=== PATIENT | female | born 1935 | race Caucasian/White ===

== ENCOUNTER 2018-07-06 12:52 | Emergency (ER) | payer OTHER ==
[2018-07-06 13:40] LABS: Urine Blood 1+ (NEG); Urine Glucose NEGATIVE (NEG); Urine Protein 1+ (NEG); Urine Specific Gravity 1.005 (1.005-1.030)
[2018-07-06] MEDS ORDERED: ONDANSETRON 4 MG/2 ML VIAL ONE (13:43)
[2018-07-06] MEDS ORDERED: MORPHINE 4 MG/ML SYR ONE (13:43)
[2018-07-06] MEDS ORDERED: NA CHLORIDE 0.9% 1,000 ML ONE (13:43)
[2018-07-06 13:47] LABS: Urine Amorphous Sediment 1+ /HPF (NONE SEEN); Urine Bacteria LOADED /HPF (<20); Urine Culture Reflex Order REFLEXED; Urine Mucus 1+ /HPF (NONE SEEN); Urine RBC <5 /HPF (NONE SEEN)
[2018-07-06 13:48] LABS: Absolute Lymphocytes (CBC) 2.5 K/uL (0.7-4.9); Absolute Monocytes 0.8 K/uL (0.1-1.3); Absolute Neutrophil 5.4 K/uL (1.8-8.0); Basophils % 0.4 % (0-1.3); Eosinophils % 1.4 % (0-4.4); Hematocrit 33.9 % (36.0-45.0); Lymphocytes % 28.2 % (15.3-44.8); MCH 32.7 pg (27.0-35.0); MCV 94.7 fL (80-100); MPV 7.4 fL (7.6-11.3); Monocytes % 8.6 % (3.3-12.3); RBC Red Blood Cell Count 3.58 M/uL (3.86-4.86)
[2018-07-06 13:55] LABS: Protime INR 1.01
[2018-07-06 14:01] LABS: ALT/SGPT 28 U/L (12-78); AST/SGOT 19 U/L (15-37); Albumin 3.5 g/dL (3.4-5.0); Alkaline Phosphatase 72 U/L (45-117); BUN Blood Urea Nitrogen 20 mg/dL (7-18); Bicarbonate 29 mmol/L (21-32); Bilirubin Direct 0.2 mg/dL (0-0.2); Bilirubin Total 0.6 mg/dL (0.2-1.0); Glucose Level 88 mg/dL (74-106); Magnesium 1.9 mg/dL (1.8-2.4); NT PRO-BNP 279 pg/mL (<450); Potassium 3.9 mmol/L (3.5-5.1); Protein, Total 7.3 g/dL (6.4-8.2); Sodium Level 137 mmol/L (136-145); Troponin (Emerg Dept Use Only) < 0.02 ng/mL (0.0-0.045)
[2018-07-06] MEDS ORDERED: LORazepam 2 MG/ML VIAL ONE (14:12)
--- NOTE | 2018-07-06 14:16 | RAD REPORT ---
EXAM DESCRIPTION: RAD - Ankle Left 3 View - 07/06/2018 1:53 pm CLINICAL HISTORY: Persistent ankle pain following injury COMPARISON: None. FINDINGS: No fracture, dislocation or periosteal reaction. No joint effusion seen. No joint space na rrowing. Small plantar and moderate Achilles spurs are present. Mild soft tissue swelling present. No foreign body. IMPRESSION: Mild soft tissue swelling without acute bone finding. Plantar and Achilles tendon spurs are present.
--- NOTE | 2018-07-06 14:17 | RAD REPORT ---
EXAM DESCRIPTION: RAD - Chest Single View - 07/06/2018 1:53 pm CLINICAL HISTORY: Chest pain COMPARISON: October 2010 TECHNIQUE: AP portable chest image was obtained 1346 hours . FINDINGS: Lung volumes are low compared to the prior study. Left pericardial fat is prominent. No pe ripheral mass or consolidation. Lung markings are within normal limits when adjusting for the more sh allow inspiratory effort. Sternotomy wires are in place. No failure or volume overload seen. Heart and vasculature are normal. No measurable pleural effusion and no pneumothorax. No acute bony abnormality seen. No acute aortic findings suspected. IMPRESSION: No acute cardiopulmonary process. No significant change from comparison.
--- NOTE | 2018-07-06 14:42 | RAD REPORT ---
EXAM DESCRIPTION: CT - Chest For Pe Angio - 07/06/2018 2:30 pm CLINICAL HISTORY: Chest pain, arm pain, history of bypass COMPARISON: Chest films same date TECHNIQUE: Dynamically enhanced 3 mm thick images of the chest were obtained during administration o f approximately 150mL Isovue 370 IV contrast. Coronal and oblique MIP reconstruction images were gene rated and reviewed. Exam utilizes a protocol to evaluate the pulmonary arterial tree. All CT scans are performed using dose optimization technique as appropriate and may include automated exposure control or mA/KV adjustment according to patient size. FINDINGS: No pulmonary emboli are identified. The aorta as imaged shows no acute or suspicious finding. No pericardial thickening or effusion. No consolidation, mass or focal lung parenchymal process. Lung base interstitial markings are mildly prominent. No pleural effusion or pleural thickening. No mediastinal or hilar suspicious masses. No chest wall masses or abnormal axillary lymphadenopathy. IMPRESSION: No pulmonary emboli identified. No focal lung parenchymal process. Mild prominence of the mid and lower lung field interstitial denice ngs could be minimal interstitial edema or infiltrate.
--- NOTE | 2018-07-06 15:33 | ER ---
Nurse's Notes [facility] Name: Rosalie Obrien Age: 83 yrs Sex: Female : 1935 Arrival Date: 07/06/2018 Time: 12:55 Bed 17 Private MD: Khris Garcia V Diagnosis: Chest pain, unspecified;CHEST WALL PAIN;MUSCULOSKELETAL PAIN;ANXIETY;LEFT ANKLE SPRAIN;Urinary tract infection, site not specified Presentation: 07/06 13:15 Presenting complaint: Patient states: "I hurt my left ankle about a week ago". Pt aa5 states "also my left arm started aching last night and my back hurts". Pt denies SOB, denies cough. Transition of care: patient was not received from another setting of care. Onset of symptoms was June 2018. Risk Assessment: Do you want to hurt yourself or someone else? Patient reports no desire to harm self or others. Initial Sepsis Screen: Does the patient meet any 2 criteria? No. Patient's initial sepsis screen is negative. Does the patient have a suspected source of infection? No. Patient's initial sepsis screen is negative. Care prior to arrival: None. 13:15 Method Of Arrival: Ambulatory aa5 13:15 Acuity: RU 3 aa5 Historical: - Allergies: 13:15 No Known Allergies; aa5 - PMHx: 13:15 Hypertension; Hyperlipidemia; aa5 - PSHx: 13:15 Triple Bypass; Appendectomy; Lumpectomy; aa5 - Immunization history:: Pneumococcal vaccine is up to date, Flu vaccine is up to date. - Social history:: Smoking status: Patient/guardian denies using tobacco. - Ebola Screening: : No symptoms or risks identified at this time. - Family history:: not pertinent. - Hospitalizations: : No recent hospitalization is reported. Screenin:39 Abuse screen: Denies threats or abuse. Denies injuries from another. Nutritional aj screening: No deficits noted. Tuberculosis screening: No symptoms or risk factors identified. Fall Risk None identified. Assessment: 13:38 General: Appears in no apparent distress. uncomfortable, Behavior is calm, cooperative, aj appropriate for age. Pain: Complains of pain in back, chest and left foot Pain radiates to back Pain began 2-3 days ago. Neuro: Level of Consciousness is awake, alert, obeys commands, Oriented to person, place, time, situation, Appropriate for age. Cardiovascular: Capillary refill < 3 seconds Patient's skin is warm and dry. Respiratory: Reports shortness of breath at rest Airway is patent Respiratory effort is even, unlabored, Respiratory pattern is symmetrical. Derm: Skin is intact, is healthy with good turgor, Skin is pink, warm \\T\\ dry. normal, Bruising that is dark purple, on left lateral ankle and anterior aspect of left ankle. Musculoskeletal: Swelling present in left lateral ankle and anterior aspect of left ankle. 14:26 Reassessment: PT TO CT WITH CENTRIFUGAL CHILLER TECHNICIAN. bp 15:12 Reassessment: Patient appears in no apparent distress at this time. No changes from aj previously documented assessment. Patient and/or family updated on plan of care and expected duration. Pain level reassessed. Patient is alert, oriented x 3, equal unlabored respirations, skin warm/dry/pink. 15:25 Reassessment: Patient appears in no apparent distress at this time. No changes from aj previously documented assessment. Patient and/or family updated on plan of care and expected duration. Pain level reassessed. Patient is alert, oriented x 3, equal unlabored respirations, skin warm/dry/pink. Patient contacted family member to pick her up from ER Patient denies pain at this time. Patient states feeling better. Patient states symptoms have improved. 15:51 Reassessment: Patient's family member arrived to take patient home. aj Vital Signs: 13:16 BP 178 / 83; Pulse 79; Resp 16 S; Temp 98.1(O); Pulse Ox 99% on R/A; Weight 74.84 kg aa5 (R); Height 5 ft. 7 in. (170.18 cm) (R); Pain 7/10; 14:00 BP 218 / 75; Pulse 74; Resp 20; Pulse Ox 97% on R/A; aj 14:16 BP 136 / 96; Pulse 76; Resp 20; Pulse Ox 97% on R/A; aj 15:12 BP 163 / 70; Pulse 75; Resp 14; Pulse Ox 95% on R/A; aj 15:25 BP 161 / 62; Pulse 76; Resp 20; Pulse Ox 98% on R/A; aj 15:51 BP 153 / 69; Pulse 78; Resp 16; Pulse Ox 99% on R/A; aj 13:16 Body Mass Index 25.84 (74.84 kg, 170.18 cm) aa5 ED Course: 12:55 Patient arrived in ED. rg4 12:55 Khris Garcia MD is Private Physician. rg4 13:15 Arm band placed on. aa5 13:16 Triage completed. aa5 13:17 [facility] kav 13:17 Rogelio Hung MD is Attending Physician. kav 13:32 Geovanna Gao, CHANELL is Primary Nurse. aj 13:32 Inserted saline lock: 18 gauge in left antecubital area, using aseptic technique. Blood aj collected. 13:39 Patient has correct armband on for positive identification. traffic monitor specialist on. Pulse aj ox on. NIBP on. 13:40 EKG done, by ED staff. vh 13:53 X-ray completed. Portable x-ray completed in exam room. Patient tolerated procedure ls3 well. 13:53 XRAY Chest (1 view) In Process Unspecified. EDMS 13:53 Ankle Left 3 View XRAY In Process Unspecified. EDMS 14:25 CT completed. Patient tolerated procedure well. Patient moved to CT via wheelchair. sj Patient moved back from CT. 14:30 CT Chest For PE Angio: r/o PE In Process Unspecified. EDMS 15:25 No provider procedures requiring assistance completed. Patient maintains SpO2 aj saturation greater than 95% on room air. 15:28 Khris Garcia MD is Referral Physician. kav 15:29 Darrick Posada MD is Referral Physician. kav 15:51 IV discontinued, intact, bleeding controlled, No redness/swelling at site. Pressure aj dressing applied. Administered Medications: 13:42 Drug: Zofran 2 mg Route: IVP; Site: left antecubital; aj 15:17 Follow up: Response: No adverse reaction aj 13:43 Drug: NS 0.9% 1000 ml Route: IV; Rate: 100 ml/hr; Site: left antecubital; aj 15:53 Follow up: Response: No adverse reaction; IV Status: Order to discontinue infusion; IV aj Intake: 400ml 13:43 Drug: morphine 2 mg Route: IVP; Site: left antecubital; aj 15:17 Follow up: Response: Pain is decreased aj 14:08 Drug: Ativan 0.5 mg Route: IVP; Site: left antecubital; aj 15:16 Follow up: Response: No adverse reaction; Anxiety decreased aj 15:34 Drug: hydrALAZINE 5 mg Route: IV; Rate: calculated rate; Site: left antecubital; aj 15:52 Follow up: Response: Blood pressure is lowered; IV Status: Completed infusion; IV aj Intake: 0.25ml Intake: 15:52 IV: 0ml; Total: 0ml. aj 15:53 IV: 400ml; Total: 400ml. meliton Outcome: 15:32 Discharge ordered by MD. shannon 15:51 Discharged to home ambulatory, with family. aj 15:51 Condition: good 15:51 Discharge instructions given to patient, family, Instructed on discharge instructions, follow up and referral plans. medication usage, Demonstrated understanding of instructions, follow-up care, medications, Prescriptions given X 2. 15:54 Patient left the ED. aj Addendum: 07/09/2018 16:12 Addendum: Culture Results: Positive urine culture. Phone call Prescription called-in to s s pharmacy of choice. spoke with patient who verbalizes understanding importance of stopping Bactrim and begin taking Macrobid. Medication called in to [facility] pharmacy. Signatures: Dispatcher [employer] Geovanna Moss RN RN aj Vern, Katherine, POWDER EXPERT POWDER EXPERT Lizette Conway Audri RN RN aa5 Leatha Dunbar RN RN Laurel Montanez Rubi rg4 Gaudencio Rahman RN RN bp Siler, Lynzie ls3 Corrections: (The following items were deleted from the chart) 07/06 14:16 14:08 BP 218 / 75; Pulse 74bpm; Resp 20bpm; Pulse Ox 97% RA; aj aj
--- NOTE | 2018-07-06 15:33 | EDPHYS ---
Physician Documentation [facility] Name: Rosalie Obrien Age: 83 yrs Sex: Female : 1935 Arrival Date: 07/06/2018 Time: 12:55 Bed 17 Private MD: Khris Garcia V ED Physician Rogelio Hung HPI: 07/06 13:18 This 83 yrs old Female presents to ER via Ambulatory with complaints of Chest kav Pain, Back Pain, Foot Pain. 14:05 The patient or guardian reports chest pain that is located primarily in the anterior kav aspect of left upper chest and left breast. Onset: acutely, last night. The pain does not radiate. Associated signs and symptoms: Pertinent positives: nausea, shortness of breath, Pertinent negatives: dizziness, headache, lower extremity swelling, palpitations, recent travel. The chest pain is described as clutching. Duration: The patient or guardian reports a single episode, that is still ongoing, but improving. Modifying factors: The symptoms are alleviated by remaining still, the symptoms are aggravated by movement. Severity of pain: At its worst the pain was severe last night. The patient has not experienced similar symptoms in the past. The patient has not recently seen a physician. patient presents with chief c/o chest pain. she is clutching her chest as she is talking. she reports that the chest pain began last night but that she did not seek out care at that time. reports radiation to let shoulder blade. also c/o sob and chest pain on deep inspiration. she reports that she has been under a lot of emotional stress in the past 3 months: placed daughter in snf, son dx: cancer and loss of significant other. she also reports that she was working out in the yard yesterday using [employer] and that "...might be contributing to the chest pain". Patient is very anxious and is crying during this examination.. Historical: - Allergies: 13:15 No Known Allergies; aa5 - PMHx: 13:15 Hypertension; Hyperlipidemia; aa5 - PSHx: 13:15 Triple Bypass; Appendectomy; Lumpectomy; aa5 - Immunization history:: Pneumococcal vaccine is up to date, Flu vaccine is up to date. - Social history:: Smoking status: Patient/guardian denies using tobacco. - Ebola Screening: : No symptoms or risks identified at this time. - Family history:: not pertinent. - Hospitalizations: : No recent hospitalization is reported. ROS: 14:11 Constitutional: Negative for fever, chills, and weight loss, Eyes: Negative for injury, kav pain, redness, and discharge, ENT: Negative for injury, pain, and discharge, Neck: Negative for injury, pain, and swelling, Respiratory: Negative for shortness of breath, cough, wheezing, and pleuritic chest pain, Abdomen/GI: Negative for abdominal pain, nausea, vomiting, diarrhea, and constipation, Back: Negative for injury and pain, : Negative for injury, bleeding, discharge, and swelling, MS/Extremity: Negative for injury and deformity, Skin: Negative for injury, rash, and discoloration, Psych: Negative for depression, anxiety, suicide ideation, homicidal ideation, and hallucinations, Allergy/Immunology: Negative for hives, rash, and allergies, Endocrine: Negative for neck swelling, polydipsia, polyuria, polyphagia, and marked weight changes, Hematologic/Lymphatic: Negative for swollen nodes, abnormal bleeding, and unusual bruising. 14:11 Cardiovascular: Positive for chest pain, with movement, of the chest and left breast and anterior aspect of left upper chest. 14:11 Psych: Positive for 14:11 Psych: Positive for anxiety. Exam: 14:11 Constitutional: This is a well developed, well nourished patient who is awake, alert, kav and in no acute distress. Head/Face: Normocephalic, atraumatic. Eyes: Pupils equal round and reactive to light, extra-ocular motions intact. Lids and lashes normal. Conjunctiva and sclera are non-icteric and not injected. Cornea within normal limits. Periorbital areas with no swelling, redness, or edema. ENT: Nares patent. No nasal discharge, no septal abnormalities noted. Tympanic membranes are normal and external auditory canals are clear. Oropharynx with no redness, swelling, or masses, exudates, or evidence of obstruction, uvula midline. Mucous membranes moist. Neck: Trachea midline, no thyromegaly or masses palpated, and no cervical lymphadenopathy. Supple, full range of motion without nuchal rigidity, or vertebral point tenderness. No Meningismus. Chest/axilla: Normal chest wall appearance and motion. Nontender with no deformity. No lesions are appreciated. Respiratory: Lungs have equal breath sounds bilaterally, clear to auscultation and percussion. No rales, rhonchi or wheezes noted. No increased work of breathing, no retractions or nasal flaring. Abdomen/GI: Soft, non-tender, with normal bowel sounds. No distension or tympany. No guarding or rebound. No evidence of tenderness throughout. Back: No spinal tenderness. No costovertebral tenderness. Full range of motion. Skin: Warm, dry with normal turgor. Normal color with no rashes, no lesions, and no evidence of cellulitis. MS/ Extremity: Pulses equal, no cyanosis. Neurovascular intact. Full, normal range of motion. Neuro: Awake and alert, GCS 15, oriented to person, place, time, and situation. Cranial nerves II-XII grossly intact. Motor strength 5/5 in all extremities. Sensory grossly intact. Cerebellar exam normal. Normal gait. 14:11 Cardiovascular: Rate: normal, actual rate is 75 bpm, Rhythm: regular, sinus rhythm kav with 1st degree av block, Heart sounds: normal, normal S1and S2, Edema: is not appreciated, JVD: is not appreciated. 14:11 ECG was reviewed by the Attending Physician. nsr with 1st degree av block Vital Signs: 13:16 BP 178 / 83; Pulse 79; Resp 16 S; Temp 98.1(O); Pulse Ox 99% on R/A; Weight 74.84 kg aa5 (R); Height 5 ft. 7 in. (170.18 cm) (R); Pain 7/10; 14:00 BP 218 / 75; Pulse 74; Resp 20; Pulse Ox 97% on R/A; aj 14:16 BP 136 / 96; Pulse 76; Resp 20; Pulse Ox 97% on R/A; aj 15:12 BP 163 / 70; Pulse 75; Resp 14; Pulse Ox 95% on R/A; aj 15:25 BP 161 / 62; Pulse 76; Resp 20; Pulse Ox 98% on R/A; aj 15:51 BP 153 / 69; Pulse 78; Resp 16; Pulse Ox 99% on R/A; aj 13:16 Body Mass Index 25.84 (74.84 kg, 170.18 cm) aa5 MDM: 13:17 Medical screening is not applicable. kav 14:11 Data reviewed: vital signs, nurses notes. [facility] 15:19 Differential diagnosis: acute myocardial infarction, chest wall pain, pulmonary kav embolus, unstable angina. Data reviewed: lab test result(s), radiologic studies, CT scan, plain films. ED course: denies chest pain, all labs reviewed. ED course: patient is calling someone to give her a ride to home. 15:43 ED course: discussed discharge with attending/dr. hung who is in agreement with kav discharge to home and f/u with both pcp and cardiology. 07/06 13:24 Order name: Basic Metabolic Panel; Complete Time: 15:11 [facility] 07/06 13:24 Order name: CBC with Diff; Complete Time: 15: [facility] 07/06 13:24 Order name: LFT's; Complete Time: 15: [facility] 07/06 13:24 Order name: Magnesium; Complete Time: 15: [facility] 07/06 13:24 Order name: NT PRO-BNP; Complete Time: 15: [facility] 07/06 13:24 Order name: PT-INR; Complete Time: 15:11 [facility] 07/06 13:24 Order name: Troponin (emerg Dept Use Only); Complete Time: 15:11 [facility] 07/06 13:24 Order name: XRAY Chest (1 view); Complete Time: 15:11 [facility] 07/06 13:24 Order name: Urine Microscopic Only; Complete Time: 15:11 07/06 13:26 Order name: Urine Dipstick--Ancillary (enter results); Complete Time: 15:11 07/06 13:26 Order name: Ankle Left 3 View XRAY; Complete Time: 15:11 [facility] 07/06 13:48 Order name: Urine Culture [facility] 07/06 13:59 Order name: DD; Complete Time: 15:45 [facility] 07/06 15:45 Interpretation: Abnormal. [facility] 07/06 14:04 Order name: CT Chest For PE Angio: r/o PE; Complete Time: 15:11 [facility] 07/06 13:24 Order name: EKG; Complete Time: 13:24 [facility] 07/06 13:24 Order name: Cardiac monitoring; Complete Time: 14:26 [facility] 07/06 13:24 Order name: EKG - Nurse/Tech; Complete Time: 14:26 [facility] 07/06 13:24 Order name: IV Saline Lock; Complete Time: 14:26 kav 07/06 13:24 Order name: Labs collected and sent; Complete Time: 14: kav 07/06 13:24 Order name: O2 Per Protocol; Complete Time: 14: kav 07/06 13:24 Order name: O2 Sat Monitoring; Complete Time: 14: kav Administered Medications: 13:42 Drug: Zofran 2 mg Route: IVP; Site: left antecubital; aj 15:17 Follow up: Response: No adverse reaction aj 13:43 Drug: NS 0.9% 1000 ml Route: IV; Rate: 100 ml/hr; Site: left antecubital; aj 15:53 Follow up: Response: No adverse reaction; IV Status: Order to discontinue infusion; IV aj Intake: 400ml 13:43 Drug: morphine 2 mg Route: IVP; Site: left antecubital; aj 15:17 Follow up: Response: Pain is decreased aj 14:08 Drug: Ativan 0.5 mg Route: IVP; Site: left antecubital; aj 15:16 Follow up: Response: No adverse reaction; Anxiety decreased aj 15:34 Drug: hydrALAZINE 5 mg Route: IV; Rate: calculated rate; Site: left antecubital; aj 15:52 Follow up: Response: Blood pressure is lowered; IV Status: Completed infusion; IV aj Intake: 0.25ml Disposition: 18:50 Co-signature as Attending Physician, Rogelio Hung MD. rn Disposition: 07/06/18 15:32 Discharged to Home. Impression: Chest pain, unspecified, CHEST WALL PAIN, MUSCULOSKELETAL PAIN, ANXIETY, LEFT ANKLE SPRAIN, Urinary tract infection, site not specified. - Condition is Stable. - Discharge Instructions: Nonspecific Chest Pain, Chest Wall Pain, Ankle Sprain, [id number], Generalized Anxiety Disorder. - Prescriptions for Ibuprofen 600 mg Oral Tablet - take 1 tablet by ORAL route every 6 hours As needed take with food; 30 tablet. Bactrim DS 800- 160 mg Oral Tablet - take 1 tablet by ORAL route every 12 hours for 7 days; 14 tablet. - Medication Reconciliation Form, Thank You Letter, Antibiotic Education form. - Follow up: Khris Garcia MD; When: 2 - 3 days; Reason: Recheck today's complaints, Continuance of care, Re-evaluation by your physician. Follow up: Darrick Posada MD; When: 2 - 3 days; Reason: Recheck today's complaints, Continuance of care, Re-evaluation by your physician. - Problem is new. - Symptoms have improved. Signatures: Dispatcher [employer] EDGeovanna Hemphill RN RN Elina Ziegler, FORESTRY SCIENTIST FORESTRY SCIENTIST Rogelio Sevilla MD MD rn Calderon, Audri, RN RN aa5 Corrections: (The following items were deleted from the chart) 15:44 15:32 07/06/2018 15:32 Discharged to Home. Impression: Chest pain, unspecified; CHEST kav WALL PAIN; MUSCULOSKELETAL PAIN; ANXIETY; LEFT ANKLE SPRAIN. Condition is Stable. Forms are Medication Reconciliation Form, Thank You Letter, Antibiotic Education, Prescription Opioid Use. Follow up: Khris Garcia; When: 2 - 3 days; Reason: Recheck today's complaints, Continuance of care, Re-evaluation by your physician. Follow up: Darrick Posada; When: 2 - 3 days; Reason: Recheck today's complaints, Continuance of care, Re-evaluation by your physician. Problem is new. Symptoms have improved. [facility] 15:54 15:33 Mike wrap-joint ordered. [facility] 15:54 15:44 07/06/2018 15:32 Discharged to Home. Impression: Chest pain, unspecified; CHEST aj WALL PAIN; MUSCULOSKELETAL PAIN; ANXIETY; LEFT ANKLE SPRAIN; Urinary tract infection, site not specified. Condition is Stable. Discharge Instructions: Nonspecific Chest Pain, Chest Wall Pain, Ankle Sprain, [id number], Generalized Anxiety Disorder. Prescriptions for Ibuprofen 600 mg Oral Tablet - take 1 tablet by ORAL route every 6 hours As needed take with food; 30 tablet. and Forms are Medication Reconciliation Form, Thank You Letter, Antibiotic Education, Prescription Opioid Use. Follow up: Khris Garcia; When: 2 - 3 days; Reason: Recheck today's complaints, Continuance of care, Re-evaluation by your physician. Follow up: Darrick Posada; When: 2 - 3 days; Reason: Recheck today's complaints, Continuance of care, Re-evaluation by your physician. Problem is new. Symptoms have improved. ka
[2018-07-06] MEDS ORDERED: HYDRALAZINE HCL 20 MG/ML VIAL ONE (15:39)
--- NOTE | 2018-07-06 22:07 | EKG ---
Test Date: 2018-07-06 Test Time: 13:28:44 Mult Au Matic Operator: JES MEASUREMENT RESULTS: Intervals: Rate: 75 MA: 216 QRSD: 86 QT: 400 QTc: 446 [place]: P: 50 MA: 216 QRS: 37 T: 40 INTERPRETIVE STATEMENTS: Sinus rhythm with 1st degree AV block Otherwise normal ECG Compared to ECG 02/07/2007 10:17:13 First degree AV block now present Electronically Signed On 07-06-18 22:06:27 CDT by Artur Deleon
== END 2018-07-06 15:54 | disposition home or self-care (01) ==
LOC: ER 12:52
DX: R07.89 Other chest pain (principal); F41.9 Anxiety disorder, unspecified; M79.18 Myalgia, other site; N39.0 Urinary tract infection, site not specified; S93.402A Sprain of unspecified ligament of left ankle, initial encounter; I10 Essential (primary) hypertension
CPT/HCPCS: 36415; 71045; 71275; 73610; 80048; 80076; 83735; 83880; 84484; 85025; 85379; 85610; 87077; 87086; 87088; 87186; 93005; 96361; 96365; 96375; 99285; J0360; J2405; J7030; Q9967; 81003; 81015

== ENCOUNTER 2018-07-25 11:23 | Observation (INO) | payer OTHER ==
--- NOTE | 2018-07-25 12:56 | RAD REPORT ---
EXAM DESCRIPTION: Kymber[place] Single View07/25/2018 12:47 pm CLINICAL HISTORY: Chest pain COMPARISON: July 06, 2018 FINDINGS: The lungs appear clear of acute infiltrate. The heart is normal size. Postsurgical changes involve the chest. IMPRESSION: No acute abnormalities displayed
[2018-07-25 13:34] LABS: Absolute Lymphocytes (CBC) 2.4 K/uL (0.7-4.9); Absolute Monocytes 0.7 K/uL (0.1-1.3); Absolute Neutrophil 8.1 K/uL (1.8-8.0); Basophils % 0.5 % (0-1.3); Eosinophils % 1.3 % (0-4.4); Hematocrit 35.9 % (36.0-45.0); MCH 31.6 pg (27.0-35.0); MCV 92.7 fL (80-100); MPV 6.9 fL (7.6-11.3); Monocytes % 6.4 % (3.3-12.3); Protime INR 1.18; RBC Red Blood Cell Count 3.87 M/uL (3.86-4.86)
[2018-07-25] MEDS ORDERED: MORPHINE 4 MG/ML SYR ONE ×2 (13:42→18:24)
[2018-07-25] MEDS ORDERED: ONDANSETRON 4 MG/2 ML VIAL ONE ×3 (13:43→18:44)
[2018-07-25] MEDS ORDERED: NA CHLORIDE 0.9% 1,000 ML ONE (13:43)
[2018-07-25 14:23] LABS: Albumin 3.5 g/dL (3.4-5.0); Bilirubin Direct 0.2 mg/dL (0-0.2); Magnesium 1.9 mg/dL (1.8-2.4); Potassium 3.9 mmol/L (3.5-5.1); Protein, Total 7.7 g/dL (6.4-8.2); Troponin (Emerg Dept Use Only) 0.04 ng/mL (0.0-0.045)
--- NOTE | 2018-07-25 15:19 | RAD REPORT ---
EXAM DESCRIPTION: CT - Angio Aorta For Dissection - 07/25/2018 2:54 pm CLINICAL HISTORY: . Chest and abdominal pain for 1 week COMPARISON: July 06, 2018 TECHNIQUE: Computed tomography angiography of the chest, abdomen pelvis were obtained. 100 cc Isovue 370 was administered intravenously. Coronal and sagittal reconstruction were performed. MIP 3D reconstruction was performed All CT scans are performed using dose optimization technique as appropriate and may include automated exposure control or mA/KV adjustment according to patient size. FINDINGS: An aortic dissection is not seen. An aortic aneurysm is not displayed. A high-grade stenosis involves the proximal celiac artery. A a moderate grade stenosis involves the p roximal SMA. MCKENZIE is patent A lung consolidation is not present. A pericardial effusion is not seen. A pleural effusion is not n oted. The liver,pancreas adrenals kidneys demonstrate no significant abnormality. A 12 millimeter hypervascular splenic lesion. There no evidence diverticulitis. No ascites is noted. IMPRESSION: Negative for an aortic dissection. 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 Followup ultrasound 3 months recommended to assess stability
[2018-07-25 15:46] LABS: Urine Blood TRACE (NEG); Urine Glucose NEGATIVE (NEG); Urine Protein NEGATIVE (NEG); Urine Specific Gravity 1.015 (1.005-1.030)
--- NOTE | 2018-07-25 15:46 | ER ---
Nurse's Notes [facility] Name: Rosalie Obrien Age: 83 yrs Sex: Female : 1935 Arrival Date: 07/25/2018 Time: 11:27 Bed 27 Private MD: Khris Garcia V Diagnosis: Chest pain, unspecified;Essential (primary) hypertension;Chondrocostal junction syndrome [Tietze];Urinary tract infection, site not specified Presentation: 07/25 11:58 Presenting complaint: Patient states: Chest arm and neck pain began 1 week ago "I can't jl7 lift my head or my arms, it just hurts too bad." Denies trauma. Transition of care: patient was not received from another setting of care. Onset of symptoms was July 18, 2018. Risk Assessment: Do you want to hurt yourself or someone else? Patient reports no desire to harm self or others. Initial Sepsis Screen: Does the patient meet any 2 criteria? No. Patient's initial sepsis screen is negative. Does the patient have a suspected source of infection? No. Patient's initial sepsis screen is negative. Care prior to arrival: None. 11:58 Method Of Arrival: Ambulatory 7 11:58 Acuity: RU 3 jl7 Historical: - Allergies: 12:00 No Known Allergies; jl7 - PMHx: 12:00 Hyperlipidemia; Hypertension; jl7 - Immunization history:: Adult Immunizations up to date. - Social history:: Smoking status: Patient/guardian denies using tobacco. - Ebola Screening: : No symptoms or risks identified at this time. - Family history:: not pertinent. Screenin:29 Abuse screen: Denies threats or abuse. Denies injuries from another. Nutritional aj screening: No deficits noted. Tuberculosis screening: No symptoms or risk factors identified. Fall Risk None identified. Assessment: 13:28 General: Appears in no apparent distress. uncomfortable, Behavior is calm, cooperative, aj appropriate for age. Pain: Complains of pain in chest, back of neck and posterior chest and left lateral anterior chest and left lateral posterior chest and anterior aspect of left upper chest and left clavicle. Neuro: Level of Consciousness is awake, alert, obeys commands, Oriented to person, place, time, situation, Appropriate for age. Cardiovascular: Reports chest pain, Capillary refill < 3 seconds in bilateral fingers Patient's skin is warm and dry. Respiratory: Airway is patent Respiratory effort is even, unlabored, Respiratory pattern is regular, symmetrical. Derm: Skin is intact, is healthy with good turgor, Skin is pink, warm \\T\\ dry. normal. Musculoskeletal: Reports pain in chest, back of neck and posterior chest. 18:22 Reassessment: Patient appears in no apparent distress at this time. No changes from aj previously documented assessment. Patient and/or family updated on plan of care and expected duration. Pain level reassessed. Patient is alert, oriented x 3, equal unlabored respirations, skin warm/dry/pink. Administered Morphine 4 mg IVP, per floor orders. Unable to take patient to assigned bed until "after shift change", per . 20:03 Reassessment: Patient appears in no apparent distress at this time. No changes from aj previously documented assessment. Patient and/or family updated on plan of care and expected duration. Pain level reassessed. Patient is alert, oriented x 3, equal unlabored respirations, skin warm/dry/pink. Patient resting comfortably in bed Patient states feeling better. Patient states symptoms have improved. Vital Signs: 12:00 BP 143 / 100; Pulse 82; Resp 16 S; Temp 98.9(O); Pulse Ox 100% on R/A; Weight 70.31 kg jl7 (M); Height 5 ft. 7 in. (170.18 cm) (R); Pain 10/10; 13:28 BP 192 / 85; Pulse 78; Resp 16; Pulse Ox 99% on R/A; aj 15:37 BP 187 / 87; Pulse 76; Resp 19; Pulse Ox 100% on R/A; aj 16:40 BP 186 / 63; Pulse 63; Resp 19; Pulse Ox 99% on R/A; aj 17:08 BP 164 / 76; Pulse 68; Resp 20; Pulse Ox 99% on R/A; aj 17:58 BP 165 / 72; Pulse 64; Resp 19; Pulse Ox 98% on R/A; aj 19:20 BP 139 / 61; Pulse 61; Resp 16; Pulse Ox 97% on R/A; aj 12:00 Body Mass Index 24.28 (70.31 kg, 170.18 cm) 7 ED Course: 11:27 Patient arrived in ED. mr 11:27 Khris Garcia MD is Private Physician. mr 12:00 Triage completed. jl7 12:00 Arm band placed on right wrist. jl7 12:03 Kiko Wells MD is Attending Physician. dexter 12:04 Geovanna Gao RN is Primary Nurse. aj 12:44 X-ray completed. Portable x-ray completed in exam room. Patient tolerated procedure ls3 well. 12:45 EKG done, by scale technician. reviewed by Kiko Wells MD. sm3 13:09 Radiology exam delayed due to lab results not completed at this time. (BUN/Creatinine). kw1 13:29 Patient has correct armband on for positive identification. Placed in gown. Bed in low aj position. Side rails up X 1. Adult w/ patient. court recording monitor on. Pulse ox on. NIBP on. 13:29 Inserted saline lock: 20 gauge in left antecubital area, using aseptic technique. Blood aj collected. 15:37 No provider procedures requiring assistance completed. aj 15:42 Khris Garcia MD is Hospitalizing Provider. dexter 19:39 Report given to Sirisha LUA. aj 19:39 Patient admitted, IV remains in place. intact. aj Administered Medications: 13:37 Drug: Zofran 4 mg Route: IVP; Site: left antecubital; aj 14:08 Follow up: Response: No adverse reaction aj 13:38 Drug: NS 0.9% 1000 ml Route: IV; Rate: 125 ml/hr; Site: right antecubital; aj 19:43 Follow up: Response: No adverse reaction; IV Status: Completed infusion; IV Intake: aj 250ml 13:38 Drug: morphine 4 mg Route: IVP; Site: left antecubital; aj 14:08 Follow up: Response: Pain is decreased aj 14:40 Drug: Zofran 4 mg Route: IVP; Site: left antecubital; aj 15:38 Follow up: Response: Nausea is decreased aj 16:38 Drug: Lopressor 2.5 mg Route: IVP; Site: left antecubital; aj 19:41 Follow up: Response: Blood pressure is lowered aj 16:38 Drug: Lopressor 25 mg Route: PO; aj 19:41 Follow up: Response: Blood pressure is lowered aj 16:38 Drug: Rocephin - (cefTRIAXone) 1 grams Route: IVPB; Infused Over: 30 mins; Site: left aj antecubital; 19:41 Follow up: Response: No adverse reaction; IV Status: Completed infusion; IV Intake: 10mlaj 16:39 Drug: Lovenox 40 mg Route: Sub-Q; Site: right lower abdomen; aj 19:42 Follow up: Response: No adverse reaction aj 16:39 Drug: Aspirin 162 mg Route: PO; aj 19:42 Follow up: Response: No adverse reaction aj 16:39 Drug: Pepcid 20 mg Route: IVP; Site: left antecubital; aj 19:42 Follow up: Response: Blood pressure is lowered aj 18:18 Not Given (Physician Discretion): Lopressor 2.5 mg IVP once; Hold for SBP <100 or HR aj <60. Intake: 19:41 IV: 10ml; Total: 10ml. aj 19:43 IV: 250ml; Total: 260ml. aj Outcome: 15:45 Decision to Hospitalize by Provider. dexter 20:04 Admitted to Med/surg accompanied by nurse, via wheelchair, room 409, with chart, Report aj called to Sirisha LUA 20:04 Condition: good 20:04 Instructed on the need for admit. 20:05 Patient left the ED. meliton Signatures: Geovanna Gao, RN RN Kiko Greene MD MD cha Rivera, Mohsen Pringle RN RN [email or web address] Ijeoma Neal1 Ivy Potts3 Vladimir Abbott3
--- NOTE | 2018-07-25 15:46 | EDPHYS ---
Physician Documentation [facility] Name: Rosalie Obrien Age: 83 yrs Sex: Female : 1935 Arrival Date: 07/25/2018 Time: 11:27 Bed 27 Private MD: Khris Garcia V ED Physician Kiko Wells HPI: 07/25 12:54 This 83 yrs old Female presents to ER via Ambulatory with complaints of Pain dexter All Over. 12:54 The patient or guardian reports chest pain that is located primarily in the substernal dexter area, anterior chest wall, left. Onset: 2 week(s) ago. no fever. The pain does not radiate. Onset: The symptoms/episode began/occurred 2 week(s) ago. Associated signs and symptoms: The patient has no apparent associated signs or symptoms. Duration: The patient or guardian reports multiple episodes, that are intermittent. Severity of pain: At its worst the pain was severe in the emergency department the pain is actually worse moderately. Historical: - Allergies: 12:00 No Known Allergies; jl7 - PMHx: 12:00 Hyperlipidemia; Hypertension; jl7 - Immunization history:: Adult Immunizations up to date. - Social history:: Smoking status: Patient/guardian denies using tobacco. - Ebola Screening: : No symptoms or risks identified at this time. - Family history:: not pertinent. ROS: 12:54 Constitutional: Negative for fever, chills, and weight loss, Eyes: Negative for injury, dexter pain, redness, and discharge, ENT: Negative for injury, pain, and discharge, Neck: Negative for injury, pain, and swelling, Respiratory: Negative for shortness of breath, cough, wheezing, and pleuritic chest pain, Abdomen/GI: Negative for abdominal pain, nausea, vomiting, diarrhea, and constipation, Back: Negative for injury and pain, : Negative for injury, bleeding, discharge, and swelling, MS/Extremity: Negative for injury and deformity, Skin: Negative for injury, rash, and discoloration, Neuro: Negative for headache, weakness, numbness, tingling, and seizure, Psych: Negative for depression, anxiety, suicide ideation, homicidal ideation, and hallucinations, Allergy/Immunology: Negative for hives, rash, and allergies, Endocrine: Negative for neck swelling, polydipsia, polyuria, polyphagia, and marked weight changes, Hematologic/Lymphatic: Negative for swollen nodes, abnormal bleeding, and unusual bruising. 12:54 Cardiovascular: Positive for chest pain, with movement, of the left clavicle, anterior aspect of left upper chest, left lateral posterior chest and left lateral anterior chest. Exam: 12:54 Constitutional: This is a well developed, well nourished patient who is awake, alert, dexter and in no acute distress. Head/Face: Normocephalic, atraumatic. Eyes: Pupils equal round and reactive to light, extra-ocular motions intact. Lids and lashes normal. Conjunctiva and sclera are non-icteric and not injected. Cornea within normal limits. Periorbital areas with no swelling, redness, or edema. ENT: Nares patent. No nasal discharge, no septal abnormalities noted. Tympanic membranes are normal and external auditory canals are clear. Oropharynx with no redness, swelling, or masses, exudates, or evidence of obstruction, uvula midline. Mucous membranes moist. Neck: Trachea midline, no thyromegaly or masses palpated, and no cervical lymphadenopathy. Supple, full range of motion without nuchal rigidity, or vertebral point tenderness. No Meningismus. Respiratory: Lungs have equal breath sounds bilaterally, clear to auscultation and percussion. No rales, rhonchi or wheezes noted. No increased work of breathing, no retractions or nasal flaring. Abdomen/GI: Soft, non-tender, with normal bowel sounds. No distension or tympany. No guarding or rebound. No evidence of tenderness throughout. Back: No spinal tenderness. No costovertebral tenderness. Full range of motion. Female : Normal external genitalia. Skin: Warm, dry with normal turgor. Normal color with no rashes, no lesions, and no evidence of cellulitis. MS/ Extremity: Pulses equal, no cyanosis. Neurovascular intact. Full, normal range of motion. Neuro: Awake and alert, GCS 15, oriented to person, place, time, and situation. Cranial nerves II-XII grossly intact. Motor strength 5/5 in all extremities. Sensory grossly intact. Cerebellar exam normal. Normal gait. Psych: Awake, alert, with orientation to person, place and time. Behavior, mood, and affect are within normal limits. 12:54 Chest/axilla: Inspection: normal, no acute changes, Palpation: tenderness, that is moderate, of the anterior aspect of left upper chest, left lateral posterior chest, left lateral anterior chest and left breast. Vital Signs: 12:00 BP 143 / 100; Pulse 82; Resp 16 S; Temp 98.9(O); Pulse Ox 100% on R/A; Weight 70.31 kg jl7 (M); Height 5 ft. 7 in. (170.18 cm) (R); Pain 10/10; 13:28 BP 192 / 85; Pulse 78; Resp 16; Pulse Ox 99% on R/A; aj 15:37 BP 187 / 87; Pulse 76; Resp 19; Pulse Ox 100% on R/A; aj 16:40 BP 186 / 63; Pulse 63; Resp 19; Pulse Ox 99% on R/A; aj 17:08 BP 164 / 76; Pulse 68; Resp 20; Pulse Ox 99% on R/A; aj 17:58 BP 165 / 72; Pulse 64; Resp 19; Pulse Ox 98% on R/A; aj 19:20 BP 139 / 61; Pulse 61; Resp 16; Pulse Ox 97% on R/A; aj 12:00 Body Mass Index 24.28 (70.31 kg, 170.18 cm) 7 MDM: 12:03 Patient medically screened. [facility] 12:56 Data reviewed: vital signs, nurses notes, lab test result(s), EKG, radiologic studies, [facility] CT scan, plain films. 07/25 12:11 Order name: Basic Metabolic Panel 07/25 12:11 Order name: CBC with Diff 07/25 12:11 Order name: LFT's 07/25 12:11 Order name: Magnesium 07/25 12:11 Order name: NT PRO-BNP 07/25 12:11 Order name: PT-INR 07/25 12:11 Order name: Troponin (emerg Dept Use Only) 07/25 12:53 Order name: Lipase [facility] 07/25 12:53 Order name: Urine Culture [facility] 07/25 12:54 Order name: Blood Culture Adult (2) [facility] 07/25 13:40 Order name: CBC with Automated Diff; Complete Time: 13:43 EDMS 07/25 13:41 Order name: Protime (+INR); Complete Time: 13:43 EDRI 07/25 13:46 Order name: Lipase; Complete Time: 13:58 [facility] 07/25 14:24 Order name: Basic Metabolic Panel; Complete Time: 14:51 [facility] 07/25 12:11 Order name: XRAY Chest (1 view) 07/25 12:53 Order name: CT Aorta for Dissection [facility] 07/25 12:56 Order name: RAD; Complete Time: 13:33 [facility] 07/25 14:24 Order name: Liver (Hepatic) Function; Complete Time: 14:51 [facility] 07/25 14:24 Order name: Troponin (Emerg Dept Use Only); Complete Time: 14:51 [facility] 07/25 14:24 Order name: NT PRO-BNP; Complete Time: 14:51 [facility] 07/25 14:24 Order name: Magnesium; Complete Time: 14:51 [facility] 07/25 15:20 Order name: CT; Complete Time: 15:31 [facility] 07/25 15:37 Order name: Urine Dipstick--Ancillary (enter results) 07/25 15:47 Order name: Urine Dipstick-Ancillary; Complete Time: 15:57 [facility] 07/25 18:43 Order name: Troponin I [facility] 07/25 12:11 Order name: EKG; Complete Time: 13:06 07/25 12:11 Order name: Cardiac monitoring; Complete Time: 13:30 07/25 12:11 Order name: EKG - Nurse/Tech; Complete Time: 13:30 07/25 12:11 Order name: IV Saline Lock; Complete Time: 13:30 07/25 12:11 Order name: Labs collected and sent; Complete Time: 13:30 07/25 12:11 Order name: O2 Per Protocol; Complete Time: 13:30 07/25 12:11 Order name: O2 Sat Monitoring; Complete Time: 13:31 07/25 12:53 Order name: Urine Dipstick-Ancillary (obtain specimen); Complete Time: 15:38 [facility] Administered Medications: 13:37 Drug: Zofran 4 mg Route: IVP; Site: left antecubital; aj 14:08 Follow up: Response: No adverse reaction aj 13:38 Drug: NS 0.9% 1000 ml Route: IV; Rate: 125 ml/hr; Site: right antecubital; aj 19:43 Follow up: Response: No adverse reaction; IV Status: Completed infusion; IV Intake: aj 250ml 13:38 Drug: morphine 4 mg Route: IVP; Site: left antecubital; aj 14:08 Follow up: Response: Pain is decreased aj 14:40 Drug: Zofran 4 mg Route: IVP; Site: left antecubital; aj 15:38 Follow up: Response: Nausea is decreased aj 16:38 Drug: Lopressor 2.5 mg Route: IVP; Site: left antecubital; aj 19:41 Follow up: Response: Blood pressure is lowered aj 16:38 Drug: Lopressor 25 mg Route: PO; aj 19:41 Follow up: Response: Blood pressure is lowered aj 16:38 Drug: Rocephin - (cefTRIAXone) 1 grams Route: IVPB; Infused Over: 30 mins; Site: left aj antecubital; 19:41 Follow up: Response: No adverse reaction; IV Status: Completed infusion; IV Intake: 10mlaj 16:39 Drug: Lovenox 40 mg Route: Sub-Q; Site: right lower abdomen; aj 19:42 Follow up: Response: No adverse reaction aj 16:39 Drug: Aspirin 162 mg Route: PO; aj 19:42 Follow up: Response: No adverse reaction aj 16:39 Drug: Pepcid 20 mg Route: IVP; Site: left antecubital; aj 19:42 Follow up: Response: Blood pressure is lowered aj 18:18 Not Given (Physician Discretion): Lopressor 2.5 mg IVP once; Hold for SBP <100 or HR aj <60. Disposition: 07/25/18 15:45 Hospitalization ordered by Khris Garcia for Observation. Preliminary diagnosis are Chest pain, unspecified, Essential (primary) hypertension, Chondrocostal junction syndrome [Tietze], Urinary tract infection, site not specified. - Bed requested for Telemetry/MedSurg (observation). - Status is Observation. aj - Condition is Fair. - Problem is new. - Symptoms have improved. UTI on Admission? Yes Signatures: Dispatcher [employer] EDMS [employer] Amanda RN Kiko Lindsay MD MD cha Leal, Jahala RN RN jl7 Corrections: (The following items were deleted from the chart) 15:58 15:45 Hospitalization Ordered by Khris Garcia MD for Observation. Preliminary diagnosis dexter is Chest pain, unspecified; Essential (primary) hypertension; Chondrocostal junction syndrome [Tietze]. Bed requested for Telemetry/MedSurg (observation). Status is Observation. Condition is Fair. Problem is new. Symptoms have improved. UTI on Admission? No. dexter 15:58 15:58 07/25/2018 15:45 Hospitalization Ordered by Khris Garcia MD for Observation. dexter Preliminary diagnosis is Chest pain, unspecified; Essential (primary) hypertension; Chondrocostal junction syndrome [Tietze]; Urinary tract infection, site not specified. Bed requested for Telemetry/MedSurg (observation). Status is Observation. Condition is Fair. Problem is new. Symptoms have improved. UTI on Admission? No. [facility] 17:48 15:58 07/25/2018 15:45 Hospitalization Ordered by Khris Garcia MD for Observation. bd Preliminary diagnosis is Chest pain, unspecified; Essential (primary) hypertension; Chondrocostal junction syndrome [Tietze]; Urinary tract infection, site not specified. Bed requested for Telemetry/MedSurg (observation). Status is Observation. Condition is Fair. Problem is new. Symptoms have improved. UTI on Admission? Yes. [facility] 20:05 17:48 07/25/2018 15:45 Hospitalization Ordered by Khris Garcia MD for Observation. aj Preliminary diagnosis is Chest pain, unspecified; Essential (primary) hypertension; Chondrocostal junction syndrome [Tietze]; Urinary tract infection, site not specified. Bed requested for Telemetry/MedSurg (observation). Status is Observation. Condition is Fair. Problem is new. Symptoms have improved. UTI on Admission? Yes. bd
[2018-07-25] MEDS ORDERED: ONDANSETRON 4 MG/2 ML VIAL IV PRN (15:51)
[2018-07-25] MEDS ORDERED: MORPHINE 4 MG/ML SYR IV PRN (15:51)
--- NOTE | 2018-07-25 16:00 | EKG ---
Test Date: 2018-07-25 Test Time: 12:43:35 Dynamite Packing Machine Operator: KACIE MEASUREMENT RESULTS: Intervals: Rate: 84 DC: 198 QRSD: 80 QT: 368 QTc: 434 [place]: P: 3 DC: 198 QRS: 65 T: 57 INTERPRETIVE STATEMENTS: Normal sinus rhythm Normal ECG Compared to ECG 07/06/2018 13:28:44 First degree AV block no longer present Electronically Signed On 07-25-18 15:59:00 COAL FEEDER OPERATOR by Darrick Posada
[2018-07-25] MEDS ORDERED: ASPIRIN 81 MG CHEWABLE TABLET ONE (16:34)
[2018-07-25] MEDS ORDERED: METOPROLOL TAR 25 MG TAB ONE (16:34)
[2018-07-25] MEDS ORDERED: CEFTRIAXONE/SWI 1gm 1 GM/10 ML SYR ONE (16:35)
[2018-07-25] MEDS ORDERED: ENOXAPARIN 40 MG/0.4 ML SQ ONE (16:35)
[2018-07-25] MEDS ORDERED: FAMOTIDINE 20 MG/2 ML VIAL IV ONE (16:35)
[2018-07-25] MEDS ORDERED: METOPROLOL TARTRATE 5 MG/5 ML INJ IV ONE (16:35)
[2018-07-25] MEDS: METOPROLOL TAR 25 MG TAB PO SCH (18:00)
[2018-07-25] MEDS ORDERED: METHYLPREDNISOLONE 40 MG INJ IV ONE (18:42)
[2018-07-25] MEDS ORDERED: LORazepam 2 MG/ML VIAL IV ONE (18:42)
[2018-07-25] MEDS ORDERED: LORazepam 2 MG/ML VIAL ONE (18:43)
[2018-07-25] MEDS ORDERED: METHYLPREDNISOLONE 40 MG INJ ONE (18:44)
--- NOTE | 2018-07-25 19:21 | P.HP ---
Certification for Inpatient Patient admitted to: Inpatient With expected LOS: >2 Midnights Practitioner: I am a practitioner with admitting privileges, knowledge of patient current condition, hospital course, and medical plan of care. Services: Services provided to patient in accordance with Admission requirements found in Title 42 Section 412.3 of the Code of Federal Regulations Patient History Date of Service: 07/25/18 Reason for admission: NECK SPASMS, CHEST PAIN, UPPER BODY SPASMS 3 WEEKS History of Present Illness: SHANNAN IS A RELATIVELY HEALTHY LADY WITH HISTORY OF CAD, HTN, WHO HAS BEEN IN EXCELLENT HEALTH UNTIL ABOUT3 WEEKS AGO. SHE HAS TO GO TO [place] TAKING THE SON FOR LIVER TRANSPLANT EVALUATION FOR DAYS AFTER DAYS. SHE WAKES UP AT 3 AM AND COMES HOME BY 11 PM. SHE IS IN SEVERE STRESS. ABOUT 3 WEEKS AGO SHE HAD SYNCOPE AND ALL ABOVE SYMPTOMS, SHE HAD NO UTI SYMPTOMS. ER PASSENGER BARGE MASTER GAVE HER ANTIBIOTICS FOR POSITIVE UA , FIRST BACTRIM AND THEN MACROBID. SHE COMES BACK WITH SEVERE SPASMS STARTING FROM NECK TO ARMS AND UPPER BODY. THERE IS NO ABDOMEN PAIN. SHE HAS NO FEVER, NAUSEA, VOMITING OR WEAKNESS/PARALYSIS. SHE IS NOT SURE IF THE SPASMS STARTED AFTER SECOND ANTIBIOTICS. I CALLED RONY TO FIND WHAT ABX WERE GIVEN TO HER. Allergies No Known Allergies Allergy (Verified 08/05/17 10:18) Home Medications: Aspirin [Aspirin EC 81 MG] 81 mg PO DAILY 08/05/17 Atorvastatin Calcium 40 mg PO DAILY 08/05/17 Ibuprofen [Advil] 200 mg PO Q4HP PRN 08/05/17 Losartan Potassium [Cozaar*] 50 mg PO DAILY AFTER SUPPER 08/05/17 Metoprolol Succinate [Toprol Xl*] 50 mg PO DAILY AFTER SUPPER 08/05/17 Omeprazole 20 mg PO DAILY 08/05/17 Sertraline [Zoloft*] 100 mg PO DAILY 08/05/17 Vit A/Vit C/Vit E/Zinc/Copper [Icaps Areds Formula Dr Tablet] 1 each PO DAILY Review of Systems 10-point ROS is otherwise unremarkable General: As per HPI Musculoskeletal: Neck Pain, Shoulder Pain, As per HPI Physical Examination - Physical Exam General: Alert, Severe distress (SHE IS IN EXTREME PAIN WITH ANY NECK MOVEMENT, SPSAMS GO THROUGH THE UPPER BODY. ) HEENT: Atraumatic, PERRLA, Mucous membr. moist/pink, EOMI, Sclerae nonicteric Neck: Supple, 2+ carotid pulse no bruit, No LAD, Without JVD or thyroid abnormality Respiratory: Clear to auscultation bilaterally, Normal air movement Cardiovascular: Regular rate/rhythm, Normal S1 S2 Gastrointestinal: Normal bowel sounds, No tenderness Musculoskeletal: No tenderness Integumentary: No rashes Neurological: Normal gait, Normal speech, Normal strength at 5/5 x4 extr, Normal tone, Normal affect Lymphatics: No axilla or inguinal lymphadenopathy - Studies Laboratory Data (last 24 hrs) 07/25/18 13:15: Lipase 137 07/25/18 13:15: PT 14.0 H, INR 1.18 07/25/18 13:15: WBC 11.4 H, RBC 3.87, Hgb 12.2, Hct 35.9 L, MCV 92.7, MCH 31.6, MCHC 34.1, RDW 13.2, Plt Count 303, MPV 6.9 L, Neutrophils % 70.8, Lymphocytes % 21.0, Monocytes % 6.4, Eosinophils % 1.3, Basophils % 0.5, Absolute Neutrophils 8.1 H, Absolute Lymphocytes 2.4, Absolute Monocytes 0.7, Absolute Eosinophils 0.1, Absolute Basophils 0.1 07/25/18 12:11: Sodium 143, Potassium 3.9, Chloride 108 H, Carbon Dioxide 29, BUN 15, Creatinine 0.70, Estimated GFR 80 L, Glucose 92, Calcium 8.8, Magnesium 1.9, Total Bilirubin 1.0, Direct Bilirubin 0.2, AST 19, ALT 26, Alkaline Phosphatase 96, Rapid Troponin I 0.04, NT-Pro-B Natriuret Pep 410, Serum Total Protein 7.7, Albumin 3.5, Globulin 4.2 H, Albumin/Globulin Ratio 0.8 L Assessment and Plan - Problems (Diagnosis) (1) Cervical spine ankylosis Current Visit: Yes Status: Acute Plan: WILL ORDER MRI IN AM FOR C SPINE AND T SPINE. HER SYMPTOMS SEEM TO ORIGINATE FROM HERE. SHE MAY HAVE DEVELOPED SUBACUTE INFLAMMATION LIKE SERUM SICKNESS FROM ANTIBIOTICS. FAMILY SEEMS TO RELATE THIS TO AFTER SECOND ABX ONCE ASKED. SHE MAY HAVE THIS FROM SEVERE MENTAL STRESS EXACERABTING EXISTING DJD. WILL GIVE IV STEROIDS IV LORAZEPAM PRN MRI IN AM. NO SIGNS OF INFECTION HERE. (2) Chest pain Current Visit: Yes Status: Acute Plan: THIS IS NOT A CARDIAC PAIN. CHARACTER F PAIN IS NON CARDIAC- IT IS MORE SKEELETOMUSCULAR. (3) Abnormal finding on urinalysis Current Visit: Yes Status: Acute Plan: ABRNOMAL UA DOES NOT MEAN ANTIBIOTICS ARE NECESSARY. SHE HAS NO UTI SS. I WILL STOP ALL ABX GIVEN BY PASSENGER BARGE MASTER UNDER SUPERVISON OF ER DOCTORS. I WILL WATCH HER FOR NEED OF ABX. - Advance Directives Does patient have a Living Will: No Does patient have a Durable POA for Healthcare: No
[2018-07-25] MEDS ORDERED: FAMOTIDINE 20 MG/2 ML VIAL IV SCH (21:00)
[2018-07-25] MEDS: METHYLPREDNISOLONE 40 MG INJ IV SCH (23:54)
[2018-07-25] MEDS: LORazepam 2 MG/ML VIAL IV PRN (23:55)
[2018-07-26 04:54] LABS: Absolute Lymphocytes (CBC) 0.9 K/uL (0.7-4.9); Absolute Monocytes 0.1 K/uL (0.1-1.3); Basophils % 0.2 % (0-1.3); Hematocrit 35.5 % (36.0-45.0); Lymphocytes % 10.2 % (15.3-44.8); MCH 32.1 pg (27.0-35.0); MCV 92.2 fL (80-100); MPV 7.3 fL (7.6-11.3); RBC Red Blood Cell Count 3.85 M/uL (3.86-4.86)
[2018-07-26 05:05] LABS: BUN Blood Urea Nitrogen 14 mg/dL (7-18); Bicarbonate 26 mmol/L (21-32); Glucose Level 138 mg/dL (74-106); Potassium 4.2 mmol/L (3.5-5.1); Sodium Level 140 mmol/L (136-145)
[2018-07-26 05:32] LABS: Blood Morphology Comment NOT SEEN (NOT SEEN); Platelet Estimate ADEQ
[2018-07-26] MEDS: METOPROLOL TAR 25 MG TAB PO SCH (05:45)
[2018-07-26] MEDS: METHYLPREDNISOLONE 40 MG INJ IV SCH ×3 (05:45→18:31)
[2018-07-26] MEDS: ACETAMINOPHEN 500 MG TAB PO PRN ×2 (05:51→18:41)
[2018-07-26] MEDS: ASPIRIN EC 81 MG TAB PO SCH (07:59)
[2018-07-26] MEDS: PANTOPRAZOLE 40MG TABLET PO SCH (07:59)
[2018-07-26] MEDS: FAMOTIDINE 20 MG/2 ML VIAL IV SCH ×2 (08:00→21:57)
[2018-07-26] MEDS: ENOXAPARIN 40 MG/0.4 ML SQ SCH (08:07)
[2018-07-26] MEDS ORDERED: REGADENOSON 0.4 MG/5 ML SYR IV ONE (08:43)
[2018-07-26] MEDS ORDERED: ASPIRIN EC 81 MG TAB PO SCH (09:00)
[2018-07-26] MEDS ORDERED: LOSARTAN POTASSIUM 50 MG TABLET PO SCH ×2 (09:00→17:30)
[2018-07-26] MEDS: METOPROLOL XL 50 MG TAB PO SCH (09:00)
[2018-07-26] MEDS: MELOXICAM 7.5 MG TAB PO SCH (09:00)
[2018-07-26] MEDS ORDERED: METOPROLOL XL 50 MG TAB PO SCH (09:00)
[2018-07-26] MEDS ORDERED: SERTRALINE HCL 100 MG TAB PO SCH (09:00)
[2018-07-26] MEDS: LORazepam 2 MG/ML VIAL IV PRN ×2 (10:40→13:44)
--- NOTE | 2018-07-26 11:47 | RAD REPORT ---
EXAM DESCRIPTION: MRI - C Spine Wo Cont- 07/26/2018 11:27 am CLINICAL HISTORY: PAIN Radiculopathy COMPARISON: No comparisons FINDINGS: Prominent wedge deformities are seen involving the lower cervical spine, most notable invo lving C3, C4 and C5. 2 mm anterolisthesis of C3 on C4 is present. 3 mm of degenerative C5 on C6 is pr esent. Mild marrow edema is present involving the dens as well as the endplates of C5-6. No fracture or tra umatic subluxation. Prominent thickening of the tectorial membrane is present. C2-3 level: Prominent left facet hypertrophy is present with narrowing of the left exit foramen. C3-4 level: Small posterior osteophyte/ disc complex is present attenuating the anterior subarachnoid space and contacting the anterior cord. Prominent facet and uncovertebral spurring is present bilate rally narrowing both exit foramina. C4-5 level: Prominent disc thinning with fusion of the vertebral bodies anteriorly. Prominent right-s ided uncovertebral spurring is present narrowing the right exit foramen. C5-6 level: Prominent osteophyte/ disc complex. Uncovertebral and facet hypertrophy is present mildly narrowing the left exit foramen. C6-7 level: 3 mm anterolisthesis is present with posterior osteophyte/ disc complex results in mild c entral canal narrowing. C7-T1 level: Left-sided facet hypertrophy is noted narrowing the left exit foramen. No significant cord signal abnormality. IMPRESSION: Prominent degenerative change with an exaggerated lordosis of the lower cervical spine a s described. No severe canal or foraminal stenosis at any level.
--- NOTE | 2018-07-26 12:17 | RAD REPORT ---
EXAM DESCRIPTION: MRI - Thoracic Spine Wo Contr - 07/26/2018 11:26 am CLINICAL HISTORY: RADICULOPATHY COMPARISON: No comparisons FINDINGS: The vertebral body heights and disc spaces are maintained. Mild elevated T1/T2 signal is s een in the T2 vertebral body, likely vertebral body hemangioma. No aggressive marrow replacing proces s suspected. No significant herniated disc, canal stenosis or foraminal stenosis at any level. No paraspinal mass or hematoma. The thoracic cord is normal in size and signal. IMPRESSION: No significant thoracic spine abnormality detected.
--- NOTE | 2018-07-26 13:04 | RAD REPORT ---
EXAM DESCRIPTION: CT - Head Brain Wo Cont - 07/26/2018 12:55 pm CLINICAL HISTORY: Headache COMPARISON: None. TECHNIQUE: Computed axial tomography of the head was obtained. IV contrast was not requested. All CT scans are performed using dose optimization technique as appropriate and may include automated exposure control or mA/KV adjustment according to patient size. FINDINGS: An intracranial bleed is not seen . The ventricles are normal in caliber. No extra-axial fluid collection is noted. 7 millimeter low-density areas present within the right bas al ganglia. Fluid within the sinuses/ mastoids is not seen. IMPRESSION: 7 millimeter low-density area within the right basal ganglia compatible with an infarct. It probably is old although prior exams are not available for comparison. If patient continues have symptoms to suggest an acute infarction MRI would be recommended.
--- NOTE | 2018-07-26 13:16 | CON ---
The patient is an 83-year-old woman. Attending Physician: Hospitalist. History Of Present Illness: For 3 weeks, the patient has been having this pain. It is the pain most ly in the shoulder joints. Whenever she moves her arms, her shoulders hurt tremendously. She winces in pain, even lifting her arm up to lift a cup of water towards the nurse, later winces in pain. It seems to be that she has been doing this for about 3 weeks. When she came into the hospital, an EKG could not suggest any acute problem and a CT dissection does not reveal any evidence of an aortic di ssection. Cardiac enzymes are noted. 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 She has an elevated C-reactive protein an d sedimentation rate is pending. I suspect it will be elevated. She is a very active woman. She marques d bypass surgery in 1993. 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 The patient's outpatient medications have been metoprolol, aspirin, sertraline, omeprazole, atorvastatin, and losartan. She h as never had diabetes, never used tobacco. Her bypass surgery would have been at age 59. She has do ne very well since then. Physical Examination: General: She is alert, oriented, pleasant, 5 feet 8 inch, 135 pounds. She is not in any pain until she moves her arm and she winces in pain for about 15 seconds. Vital Signs: Blood pressure 165/82. Lungs: Clear. Heart: Within normal limits. Laboratory Data: EKG normal. Enzymes normal. Impression: I will recommend we try and figure out why she is having this arthritis and it is probab ly a good time to evaluate her pain. We could probably stop the Lipitor, and see if that helps the p ain. We do not have any other good explanation. It would be an unusual case for polymyalgia rheumat ica given the intensity of the pain and I think we should do a nuclear stress test and echo, and eval uate her heart since she had bypass surgery 24 years ago. FILIPE Voice ID: [id number] Report ID: [id number]
--- NOTE | 2018-07-26 13:24 | P.PN ---
Subjective Date of Service: 07/26/18 Chief Complaint: NECK SPASMS, CHEST PAIN, UPPER BODY SPASMS 3 WEEKS Subjective: New changes WHILE DOING STRESS TEST SHE HAD POSITIVE EKG CHANGES AND L SIDE ARM WEAKNESS. DR MASSEY ORDERED CT SCAN STAT AND NOW MRI STROKE PROTOCOL TO BE DONE. Review of Systems General: As per HPI Neurological: Weakness (L ARM HAS RESOLVED.), Change in Speech (SOME SLURRED. BUT ALSO HAS DRY MOUTH.), Other (NO APHASIA, UNDERSTANDS WELL AND RESPONDS WELL. ORIENTED TO TIME PLACE AND PERSON.) Physical Examination - Vital Signs Temperature: 98.1 F Blood Pressure: 178/79 Pulse: 69 Respirations: 16 Pulse Ox (%): 91 - Physical Exam General: Alert, Moderate distress HEENT: Atraumatic, PERRLA, EOMI Neck: Supple, JVD not distended Respiratory: Clear to auscultation bilaterally, Normal air movement Cardiovascular: Regular rate/rhythm, Normal S1 S2 Gastrointestinal: Normal bowel sounds, No tenderness Musculoskeletal: No tenderness, Other (SEVERE NECK PAIN SPASMS.) Integumentary: No rashes Neurological: Abnormal speech (DYSARTHRIA) Lymphatics: No axilla or inguinal lymphadenopathy - Studies Laboratory Data (last 24 hrs) 07/25/18 13:15: Lipase 137 07/25/18 13:15: PT 14.0 H, INR 1.18 07/25/18 13:15: WBC 11.4 H, Hgb 12.2, Hct 35.9 L, Plt Count 303 07/25/18 12:11: Sodium 143, Potassium 3.9, BUN 15, Creatinine 0.70, Glucose 92, Magnesium 1.9, Total Bilirubin 1.0, AST 19, ALT 26, Alkaline Phosphatase 96 Medications List Reviewed: Yes Assessment And Plan - Current Problems (Diagnosis) (1) Cervical spine ankylosis Onset Date: 07/26/18 Current Visit: Yes Status: Acute Plan: WILL ORDER MRI IN AM FOR C SPINE AND T SPINE. HER SYMPTOMS SEEM TO ORIGINATE FROM HERE. SHE MAY HAVE DEVELOPED SUBACUTE INFLAMMATION LIKE SERUM SICKNESS FROM ANTIBIOTICS. FAMILY SEEMS TO RELATE THIS TO AFTER SECOND ABX ONCE ASKED. SHE MAY HAVE THIS FROM SEVERE MENTAL STRESS EXACERABTING EXISTING DJD. WILL GIVE IV STEROIDS IV LORAZEPAM PRN MRI IN AM. NO SIGNS OF INFECTION HERE. MRI SHOWS SIGNIFICANT DJD. NO ABSCESS. NO HEMATOMA. I SEE SOME RESPONSE TO STEROIDS. (2) Chest pain Onset Date: 07/26/18 Current Visit: Yes Status: Acute Plan: THIS IS NOT A CARDIAC PAIN. CHARACTER F PAIN IS NON CARDIAC- IT IS MORE SKEELETOMUSCULAR. PAIN IS ATYPICAL BUT ST TEST IS POSITIVE. (3) Abnormal finding on urinalysis Onset Date: 07/26/18 Current Visit: Yes Status: Acute Plan: ABRNOMAL UA DOES NOT MEAN ANTIBIOTICS ARE NECESSARY. SHE HAS NO UTI SS. I WILL STOP ALL ABX GIVEN BY INTEGRATION SOFTWARE ENGINEER UNDER SUPERVISON OF ER DOCTORS. I WILL WATCH HER FOR NEED OF ABX. (4) Basal ganglia infarction Current Visit: Yes Status: Acute Plan: ON MEDS ALREADY WILL DO MRI STROKE PROTOCOL . DR. MASSEY TALKED TO DR RICHARDSON. HE IS OUT OF TOWN. WE WILL DO TPA IF NEW STROKE SHE HAD SYMPTOM OF L SIDE ARM WEAKNESS AT 12.[address] MASSEY Critical Care: Yes
--- NOTE | 2018-07-26 13:34 | RAD REPORT ---
EXAM DESCRIPTION: NM - Rest Stress Cardiac Imaging - 07/26/2018 1:22 pm CLINICAL HISTORY: CP Chest pain. COMPARISON: No comparisons TECHNIQUE: The patient was administered approximately 10mCi of Tc 99m Sestamibi prior to resting SPE CT imaging of the heart. The patient was then administered approximately 30 mCi of Tc 99m Sestamibi f ollowing exercise or pharmacologic stress. Multiplanar SPECT images were reviewed. FINDINGS: Moderate sized area of moderate diminished radiopharmaceutical accumulation with stress is seen along the lateral wall, compatible with stress-induced ischemia. No fixed defect is seen to sug gest hibernating myocardium or scarred myocardium. The end diastolic volume is 72 ml, the end systolic volume is 26 ml, and the ejection fraction is 64 %. IMPRESSION: Moderate stress-induced ischemia involving the lateral wall.
--- NOTE | 2018-07-26 13:38 | TREADPHA ---
DX: CHEST PAIN Date of Study: 07/26/18 Ht: 5 8 Wt: 153 lb 0 oz Consulting Physician: SHILPA MEDICATIONS: TOPROL, ZOFRAN, PROTONIX, ZOLOFT HISTORY: 83 YEAR OLD FEMALE WITH COMPLAINTS OF CHEST PAIN. MEDICALY HISTORY OF HYPERLIPIDEMIA, HYPERTENSION PHYSICIAL EXAMINATION: RESTING B.P.: 145/67 RESTING H.R.: 74 RESTING EKG: NORMAL PROTOCOL: LEXISCAN EXERCISE TIME: 3:30 B.P. AT PEAK STRESS: 156/77 IMPRESSION: LEXISCAN INFUSED PER PROTOCOL. CARDIOLITE INJECTED, SEE NUCLEAR MEDICINE REPORT. MARKED ST DEPRESSION OCCURING DURING LEXISCAN STRESS WITH NAUSEA AND SWEATING. RESOLVED AFTER NITROGRLYCERIN AND ZOFRAN. PATIENT THEN BECAME LETHARGIC.
--- NOTE | 2018-07-26 15:14 | RAD REPORT ---
EXAM DESCRIPTION: MRI - Brain W/Wo Cont - 07/26/2018 3:03 pm CLINICAL HISTORY: R/O STROKE CVA COMPARISON: MRA Head Wo Cont dated 07/26/2018; Head Brain Wo Cont dated 07/26/2018 TECHNIQUE: Multi-sequence, multiplanar MR imaging of the brain was performed with contrast. FINDINGS: No intracranial hemorrhage, hydrocephalus, or extra-axial fluid collection.Mild confluent T2/FLAIR hyperintensity in the periventricular and deep white matter is present compatible with chron ic microvascular ischemic changes. No edema or shift of midline structures. No intracranial mass. DWI is negative for acute CVA. The midline structures are normally formed. Mastoid air cells and paranasal sinuses are clear. Post-contrast images show no abnormal enhancement to suggest tumor or infection. IMPRESSION: Negative for acute CVA or other acute intracranial abnormality. No pathologic post-contrast enhancement suspected. Findings were discussed with Dr. Deleon 3:10 p.m. 07/26/2018 by telephone.
--- NOTE | 2018-07-26 15:15 | RAD REPORT ---
EXAM DESCRIPTION: MRI - MRA Head Wo Cont - 07/26/2018 3:04 pm CLINICAL HISTORY: stroke CVA COMPARISON: Head Brain Wo Cont dated 07/26/2018 FINDINGS: 3D noncontrast [id number] MR angiography of the [place] was performed. No aneurysm, flow-limiting stenosis or vascular malformation is seen. Forward flow seen in codominant vertebral arteries. The visualized dural venous sinuses appear patent. IMPRESSION: No significant flow abnormality of the [place] is identified.
--- NOTE | 2018-07-26 15:16 | RAD REPORT ---
EXAM DESCRIPTION: MRI - MRA Neck W/Wo Cont - 07/26/2018 3:03 pm CLINICAL HISTORY: R/O STROKE CVA COMPARISON: No comparisons FINDINGS: Contrast enhance 2D [id number] MR angiography of the neck vessels was performed. A left aortic arch is seen with bovine configuration of the great vessels. No significant subclavian and common carotid stenosis. Mild narrowing of both proximal internal carotid arteries are seen. No significant stenosis suspected . Antegrade flow seen in both vertebral arteries. IMPRESSION: No significant flow abnormality of the neck vessels identified.
[2018-07-26] MEDS: PREGABALIN 50 MG CAP PO SCH (21:57)
[2018-07-27] MEDS: METHYLPREDNISOLONE 40 MG INJ IV SCH ×2 (01:31→06:44)
[2018-07-27] MEDS: PANTOPRAZOLE 40MG TABLET PO SCH (06:44)
[2018-07-27] MEDS: ENOXAPARIN 40 MG/0.4 ML SQ SCH (08:32)
[2018-07-27] MEDS: PREGABALIN 50 MG CAP PO SCH (08:32)
[2018-07-27] MEDS: MELOXICAM 7.5 MG TAB PO SCH (08:33)
[2018-07-27] MEDS: FAMOTIDINE 20 MG/2 ML VIAL IV SCH (08:33)
[2018-07-27] MEDS: METOPROLOL XL 50 MG TAB PO SCH (08:33)
[2018-07-27] MEDS: ASPIRIN EC 81 MG TAB PO SCH (08:33)
[2018-07-27] MEDS ORDERED: DULOXETINE 30 MG CAP PO SCH (09:00)
--- NOTE | 2018-07-27 09:11 | PN ---
Mrs. Obrien is doing better today. She should never undergo a Lexiscan stress test. Again, we shokrishna garza list that as a drug intolerance. She did not have a stroke, although at some point she looked lik e she might be having a stroke. We did not give tPA. I do not think the chest pain she had was charanjit na, it seems to have improved with steroids and meloxicam. Her nuclear stress test shows a small are a of ischemia in the lateral wall, and since she is not actually having angina, I think she could be discharged and do an outpatient stress test at some point. She is very anxious and wants very much t o go home. All the pain in her shoulders is better, so I am in favor of that, we can have her go amanda e, call my office Tuesday, and we will schedule a cardiac cath and possible stent for her sometime nex t week. JABARI/YEN Voice ID: [id number] Report ID: [id number]
--- NOTE | 2018-07-27 09:21 | ECHO ---
HEIGHT: 5 ft 8 in WEIGHT: 162 lb 4 oz DATE OF STUDY: 07/26/[address]: Artur Deleon MD 2-DIMENSIONAL: YES M.MODE: YES DOPPLER: YES COLOR FLOW: YES TDS: PORTABLE: DEFINITY: BUBBLE STUDY: DIAGNOSIS: CHEST PAIN CARDIAC HISTORY: CATHERIZATION: YES SURGERY: YES PROSTHETIC VALVE: NO PACEMAKER: NO MEASUREMENTS (cm) DIASTOLIC (NORMALS) SYSTOLIC (NORMALS) IVSd 1.1 (0.6-1.2) LA Diam 3.7 (1.9-4.0) LVEF 79% LVIDd 4.2 (3.5-5.7) LVIDs 2.2 (2.0-3.5) %FS 48% LVPWd 1.2 (0.6-1.2) Ao Diam 2.9 (2.0-3.7) 2 DIMENSIONAL ASSESSMENT: RIGHT ATRIUM: NORMAL LEFT ATRIUM: NORMAL RIGHT VENTRICLE: NORMAL LEFT VENTRICLE: NORMAL TRICUSPID VALVE: NORMAL MITRAL VALVE: NORMAL PULMONIC VALVE: NORMAL AORTIC VALVE: NORMAL PERICARDIAL EFFUSION: NONE AORTIC ROOT: NORMAL LEFT VENTRICULAR WALL MOTION: NORMAL DOPPLER/COLOR FLOW: TRACE TRICUSPID REGURGITATION. NORMAL RIGHT VENTRICULAR SYSTOLIC PRESSURE. COMMENTS: NORMAL TWO DIMENSIONAL ECHOCARDIOGRAM. TRACE TRICUSPID REGURGITATION. TECHNOLOGIST: CUCA FITZGERALD
--- NOTE | 2018-07-27 09:37 | P.DS ---
Admission Date: 07/25/18 Discharge Date: 07/27/18 Disposition: ROUTINE DISCHARGE Discharge Condition: FAIR Reason for Admission: NECK SPASMS, CHEST PAIN, UPPER BODY SPASMS 3 WEEKS - Problems (1) Cervical spine ankylosis Onset Date: 07/26/18 Current Visit: Yes Status: Acute (2) Chest pain Onset Date: 07/26/18 Current Visit: Yes Status: Acute (3) Abnormal finding on urinalysis Onset Date: 07/26/18 Current Visit: Yes Status: Acute Brief History of Present Illness: SHANNAN IS A RELATIVELY HEALTHY LADY WITH HISTORY OF CAD, HTN, WHO HAS BEEN IN EXCELLENT HEALTH UNTIL ABOUT3 WEEKS AGO. SHE HAS TO GO TO [place] TAKING THE SON FOR LIVER TRANSPLANT EVALUATION FOR DAYS AFTER DAYS. SHE WAKES UP AT 3 AM AND COMES HOME BY 11 PM. SHE IS IN SEVERE STRESS. ABOUT 3 WEEKS AGO SHE HAD SYNCOPE AND ALL ABOVE SYMPTOMS, SHE HAD NO UTI SYMPTOMS. ER BOTTLE LABEL INSPECTOR GAVE HER ANTIBIOTICS FOR POSITIVE UA , FIRST BACTRIM AND THEN MACROBID. SHE COMES BACK WITH SEVERE SPASMS STARTING FROM NECK TO ARMS AND UPPER BODY. THERE IS NO ABDOMEN PAIN. SHE HAS NO FEVER, NAUSEA, VOMITING OR WEAKNESS/PARALYSIS. SHE IS NOT SURE IF THE SPASMS STARTED AFTER SECOND ANTIBIOTICS. I CALLED RONY TO FIND WHAT ABX WERE GIVEN TO HER. LYDIA HAD SEVERE UPPER BODY AND NECK SPASMS. THERE WAS NO SIGN OF CARDIAC SYMPTOM. SHE HAS SEVERE NECK DJD, AND WITH LACK OF REST WITH ABOVE ISSUES , CONSTANT TENSION SHE DEVELOPED SEVERE SPASMS. SHE IMPROVED VERY WELL ON CYMBALTA AND LYRICA. STEROIDS DID NOT HELP MUCH. Vital Signs/Physical Exam: Temp Pulse Resp BP Pulse Ox 98.7 F 96 H 24 H 174/65 H 92 07/27/18 04:00 07/27/18 09:00 07/27/18 09:00 07/27/18 09:00 07/27/18 08:00 General: Alert, In no apparent distress HEENT: Atraumatic, PERRLA, EOMI Neck: Supple, JVD not distended Respiratory: Clear to auscultation bilaterally, Normal air movement Cardiovascular: Regular rate/rhythm, Normal S1 S2 Gastrointestinal: Normal bowel sounds, No tenderness Musculoskeletal: No tenderness Integumentary: No rashes Neurological: Normal speech, Normal tone, Normal affect Lymphatics: No axilla or inguinal lymphadenopathy Laboratory Data at Discharge: WBC 9.0 K/uL (4.3-10.9) D 07/26/18 03:48 Hgb 12.4 g/dL (12.0-15.0) 07/26/18 03:48 Hct 35.5 % (36.0-45.0) L 07/26/18 03:48 Plt Count 279 K/uL (152-406) 07/26/18 03:48 PT 14.0 SECONDS (9.5-12.5) H 07/25/18 13:15 INR 1.18 07/25/18 13:15 Sodium 140 mmol/L (136-145) 07/26/18 03:48 Potassium 4.2 mmol/L (3.5-5.1) 07/26/18 03:48 BUN 14 mg/dL (7-18) 07/26/18 03:48 Creatinine 0.60 mg/dL (0.55-1.3) 07/26/18 03:48 Glucose 138 mg/dL (74-106) H 07/26/18 03:48 Magnesium 1.9 mg/dL (1.8-2.4) 07/25/18 12:11 Total Bilirubin 1.0 mg/dL (0.2-1.0) 07/25/18 12:11 AST 19 U/L (15-37) 07/25/18 12:11 ALT 26 U/L (12-78) 07/25/18 12:11 Alkaline Phosphatase 96 U/L (45-117) 07/25/18 12:11 Troponin I 0.03 ng/mL (0.0-0.045) 07/25/18 22:44 Lipase 137 U/L (73-393) 07/25/18 13:15 Home Medications: Aspirin [Aspirin EC 81 MG] 81 mg PO DAILY 08/05/17 Atorvastatin Calcium 40 mg PO DAILY 08/05/17 Losartan Potassium [Cozaar*] 50 mg PO DAILY AFTER SUPPER 08/05/17 Metoprolol Succinate [Toprol Xl*] 50 mg PO DAILY 08/05/17 Omeprazole 20 mg PO DAILY 08/05/17 Duloxetine HCl 30 mg PO DAILY #30 capsule. 07/27/18 Pregabalin [Lyrica*] 50 mg PO BID #60 cap 07/27/18 New Medications: Duloxetine HCl 30 mg PO DAILY #30 capsule. Pregabalin [Lyrica*] 50 mg PO BID #60 cap Diet: AHA
== END 2018-07-27 10:05 | disposition home or self-care (01) ==
LOC: ER 11:23 → ERHOLD 15:48 → 4TH 19:40 → 3RD-ICU 07-26 13:00
PROVIDERS: ADMIT Internal Medicine; ATTEND Internal Medicine
DX: M43.22 Fusion of spine, cervical region (principal); R07.89 Other chest pain; R82.90 Unspecified abnormal findings in urine; I25.10 Atherosclerotic heart disease of native coronary artery without angina pectoris; M47.892 Other spondylosis, cervical region
CPT/HCPCS: 36415; 70450; 70544; 70549; 70553; 71045; 71275; 72141; 72146; 74175; 78452; 80048 ×2; 80076; 81003; 83690; 83735; 83880; 84484 ×3; 85025 ×2; 85610; 85652; 86140; 87040 ×2; 87077; 87086; 87088; 87186; 93005; 93017; 93306; 96361; 96365; 96366; 96372; 96375; 99285; A9500; A9577; J0696; J1650 ×3; J2405 ×3; J2785; J2920 ×6; J7030; Q9967; G0378

== ENCOUNTER 2020-04-19 09:45 | Inpatient (IN) | payer OTHER, SELFPAY ==
--- OUTSIDE RECORDS SUMMARY | 2020-04-19 09:46 | XMS REPORT | Clinical Summary ---
:1935 Author Organization [facility] Address [address] [place] [address] Care Team Providers Name Role Phone MD Jose Primary Care Provider Allergies Active Allergy Reactions Severity Noted Date Comments Iodine And Iodide Containing Products Anaphylaxis High Medications Medication Sig Dispensed Refills Start Date End Date Status atorvastatin (LIPITOR) 0 09/05/2018 Active 40 MG tablet DULoxetine (CYMBALTA) 60 0 11/15/2018 Active MG capsule losartan (COZAAR) 50 MG 0 09/05/2018 Active tablet metoprolol succinate XL Take 50 mg by 0 Active (TOPROL-XL) 50 mg 24 hr mouth daily. tablet BABY ASPIRIN ORAL Take by mouth. 0 Active predniSONE (DELTASONE) Take 20 mg by 0 Active 20 mg tablet mouth daily. pregabalin (LYRICA) 50 Take 50 mg by 0 Active MG capsule mouth 3 (three) times a day. Active Problems Not on file Social History Tobacco Use Types Packs/Day Years Used Date Never Smoker Smokeless Tobacco: Never Used Alcohol Use Drinks/Week oz/Week Comments No Alcohol Habits Answer Date Recorded How often do you have a drink containing alcohol? Never 11/24/2018 How many drinks containing alcohol do you have on a typical Not asked day when you are drinking? How often do you have six or more drinks on one occasion? No t asked Sex Assigned at Date Recorded Not on file Job Start Date Occupation Industry Not on file Not on file Not on file Travel History Travel Start Travel End No recent travel history available. Last Filed Vital Signs Not on file Plan of Treatment Health Maintenance Due Date Last Done Comments SHINGLES VACCINES (#1) 1987 65+ PNEUMOCOCCAL VACCINE (1 of 2 - PCV13) 2002 INFLUENZA VACCINE 05/06/2020 Results Not on fileafter 04/19/2019 Advance Directives For more information, please contact: [phone] Type Date Recorded Patient Ancillary Services Manager Explanati on Advance Directives, Living Will and Medical Power of Central Control Room Operator
[2020-04-19] MEDS ORDERED: ONDANSETRON 4 MG/2 ML VIAL ONE (10:17)
[2020-04-19] MEDS ORDERED: MORPHINE 4 MG/ML SYR ONE ×2 (10:17→11:29)
[2020-04-19] MEDS ORDERED: NA CHLORIDE 0.9% 1,000 ML ONE (10:54)
[2020-04-19 11:09] LABS: Absolute Lymphocytes (CBC) 1.7 K/uL (0.7-4.9); Basophils % 0.5 % (0-1.3); Hematocrit 38.6 % (36.0-45.0); MPV 7.8 fL (7.6-11.3); RBC Red Blood Cell Count 4.11 M/uL (3.86-4.86)
[2020-04-19 11:11] LABS: Protime INR 1.04
[2020-04-19 11:25] LABS: Albumin 3.7 g/dL (3.4-5.0); Bilirubin Total 1.3 mg/dL (0.2-1.0); Protein, Total 6.9 g/dL (6.4-8.2)
--- NOTE | 2020-04-19 11:26 | EDPHYS ---
Physician Documentation [facility] Name: Rosalie Obrien Age: 84 yrs Sex: Female : 1935 Arrival Date: 04/19/2020 Time: 09:46 Bed 17 Private MD: ED Physician Kiko Wells HPI: 04/19 09:48 This 84 yrs old Female presents to ER via EMS with complaints of Fall Injury. pm1 09:48 Details of fall: The patient fell from an upright position, while walking. Onset: The pm1 symptoms/episode began/occurred just prior to arrival. Associated injuries: The patient sustained left hip, painful injury. Severity of symptoms: in the emergency department the symptoms are unchanged. The patient has not experienced similar symptoms in the past. The patient has not recently seen a physician, the patient's primary care provider is Dr. Garcia. Patient was watering garden and tripped on hose behind her. Presents with pain to left groin area. No head injury, headache, neck pain, LOC, chest pain. Historical: - Allergies: 10:17 Iodine; em - PMHx: 10:17 Hyperlipidemia; Hypertension; em - PSHx: 13:21 Hysterectomy; Appendectomy; CABG; em - Immunization history:: Adult Immunizations up to date. - Social history:: Smoking status: Patient denies any tobacco usage or history of. ROS: 09:52 Constitutional: Negative for fever, chills, and weight loss, Neck: Negative for injury, pm1 pain, and swelling, Cardiovascular: Negative for chest pain, palpitations, and edema, Respiratory: Negative for shortness of breath, cough, wheezing, and pleuritic chest pain, Abdomen/GI: Negative for abdominal pain, nausea, vomiting, diarrhea, and constipation, Back: Negative for injury and pain. 09:52 Skin: Negative for injury, rash, and discoloration, Neuro: Negative for headache, weakness, numbness, tingling, and seizure. 09:52 MS/extremity: Positive for pain, of the left hip, pain with extension of left leg, Negative for deformity. Exam: 09:52 Constitutional: This is a well developed, well nourished patient who is awake, alert, pm1 and in no acute distress. Head/Face: Normocephalic, atraumatic. Neck: Trachea midline, no thyromegaly or masses palpated, and no cervical lymphadenopathy. Supple, full range of motion without nuchal rigidity, or vertebral point tenderness. No Meningismus. Chest/axilla: Normal chest wall appearance and motion. Nontender with no deformity. No lesions are appreciated. 09:52 Back: No spinal tenderness. No costovertebral tenderness. Full range of motion. 09:52 Cardiovascular: Exam negative for acute changes, Rate: normal, Rhythm: regular, Pulses: Pulses are 2+ in right dorsalis pedis artery and left dorsalis pedis artery. Edema: is not appreciated. 09:52 Respiratory: Exam negative for acute changes, respiratory distress, shortness of breath. 09:52 Abdomen/GI: Exam negative for acute changes, Inspection: abdomen appears normal, Palpation: abdomen is soft and non-tender, in all quadrants. 09:52 Skin: Appearance: normal except for affected area, injury, abrasion(s), small abrasion noted, of the right knee, contusion(s), that are superficial, of the heel of left hand. 09:52 Neuro: Exam negative for acute changes, Orientation: is normal, Mentation: is normal, Motor: is normal, moves all fours, Sensation: is normal, no obvious gross deficits. Vital Signs: 10:14 BP 186 / 69; Pulse 74; Resp 18; Pulse Ox 96% on R/A; Pain 10/10; em 10:39 Temp 98.7(O); Weight 70.31 kg; Height 5 ft. 7 in. (170.18 cm); Pain 5/10; em 11:35 BP 178 / 66; Pulse 70; Resp 18; Pulse Ox 95% on R/A; em 12:30 BP 149 / 56; Pulse 62; Resp 16; Pulse Ox 92% on R/A; em 13:30 BP 154 / 63; Pulse 66; Resp 16; Pulse Ox 97% on R/A; em 14:30 BP 154 / 62; Pulse 65; Resp 20; Pulse Ox 96% on R/A; em 10:39 Body Mass Index 24.28 (70.31 kg, 170.18 cm) em [place] Coma Score: 10:10 Eye Response: spontaneous(4). Verbal Response: oriented(5). Motor Response: obeys em commands(6). Total: 15. Trauma Score (Adult): 10:10 Eye Response: spontaneous(1); Verbal Response: oriented(1); Motor Response: obeys em commands(2); Systolic BP: > 89 mm Hg(4); Respiratory Rate: 10 to 29 per min(4); [place] Score: 15; Trauma Score: 12 MDM: 09:46 Patient medically screened. pm1 10:36 Counseling: I had a detailed discussion with the patient and/or guardian regarding: the pm1 historical points, exam findings, and any diagnostic results supporting the discharge/admit diagnosis, radiology results, the need for further work-up and treatment in the hospital. 10:36 Data reviewed: vital signs. pm1 11:22 Data interpreted: Pulse oximetry: on room air is 96 %. Interpretation: normal. pm1 11:29 ED course: Patient requested Dr. Brown if available for her surgical repair. Left pm1 message for Kevin. 11:35 ED course: Dr Brown called back and is out of town. pm1 11:37 Physician consultation: Tristian Devine MD was called at 11:37, was contacted at pm1 11:37, regarding patient's condition, and will see patient would like admission per Dr. Khris Garcia MD. 11:40 Physician consultation: Khris Garcia MD was called at 11:40, was contacted at 11:40, pm1 regarding admission, patient's condition, and will see patient. 04/19 10:38 Order name: CBC with Diff; Complete Time: 11:16 pm1 04/19 10:38 Order name: CMP; Complete Time: 11:26 pm1 04/19 10:38 Order name: PT-INR; Complete Time: 11:40 pm1 04/19 12:13 Order name: Basic Metabolic Panel EDMS 04/19 12:13 Order name: Basic Metabolic Panel EDMS 04/19 12:13 Order name: CBC with Automated Diff EDMS 04/19 09:47 Order name: Hip Left 2 View XRAY; Complete Time: 12:26 pm1 04/19 10:38 Order name: Chest Single View XRAY; Complete Time: 12:26 pm1 04/19 12:13 Order name: CBC with Automated Diff EDMS 04/19 12:15 Order name: COVID-19 pm1 04/19 09:47 Order name: IV Saline Lock; Complete Time: 10:18 pm1 04/19 10:38 Order name: NPO; Complete Time: 10:39 pm1 04/19 10:38 Order name: EKG; Complete Time: 10:39 pm1 04/19 10:38 Order name: EKG - Nurse/Tech; Complete Time: 12:17 pm1 04/19 12:13 Order name: CONS Physician Consult EDMS 04/19 12:13 Order name: NPO EDMS Administered Medications: 10:14 Drug: Zofran (Ondansetron) 4 mg Route: IVP; Site: right forearm; em 10:39 Follow up: Response: No adverse reaction em 10:16 Drug: morphine 4 mg Route: IVP; Site: right forearm; em 10:39 Follow up: Response: No adverse reaction; Marked relief of symptoms; Pain is decreased em 11:24 Drug: NS 0.9% 1000 ml Route: IV; Rate: 100 ml/hr; Site: right forearm; em 14:56 Follow up: IV Status: Infusion continued upon admission; IV Intake: 300ml em 11:24 Drug: morphine 4 mg Route: IVP; Site: right forearm; em 12:30 Follow up: Response: No adverse reaction; Marked relief of symptoms; Pain is decreased em 14:33 Drug: morphine 2 mg Route: IVP; Site: right forearm; em 14:56 Follow up: Response: No adverse reaction em Disposition: 04/19/20 11:25 Hospitalization ordered by Khris Garcia for Inpatient Admission. Preliminary diagnosis is Fracture of unspecified part of neck of left femur - subcapital fracture. - Bed requested for Telemetry/MedSurg (Inpatient). - Status is Inpatient Admission. em - Condition is Stable. - Problem is new. - Symptoms have improved. Addendum: 04/21/2020 08:10 Co-signature as Attending Physician, Kiko Wells MD I agree with the assessment and c marques plan of care. Signatures: Dispatcher [employer] EDRosario Thorne, Kiko Monet RN, MD MD cha Munoz, Edgar, RN RN em Raman Romo NP PRESS LEADER pm1 Barbara Lorenzo Corrections: (The following items were deleted from the chart) 04/19 13:04 11:25 Hospitalization Ordered by Khris Garcia MD for Inpatient Admission. Preliminary eb diagnosis is Fracture of unspecified part of neck of left femur - subcapital fracture. Bed requested for Telemetry/MedSurg (Inpatient). Status is Inpatient Admission. Condition is Stable. Problem is new. Symptoms have improved. pm1 14:19 13:04 04/19/2020 11:25 Hospitalization Ordered by Khris Garcia MD for Inpatient dw Admission. Preliminary diagnosis is Fracture of unspecified part of neck of left femur - subcapital fracture. Bed requested for Telemetry/MedSurg (Inpatient). Status is Inpatient Admission. Condition is Stable. Problem is new. Symptoms have improved. eb 14:57 14:19 04/19/2020 11:25 Hospitalization Ordered by Khris Garcia MD for Inpatient em Admission. Preliminary diagnosis is Fracture of unspecified part of neck of left femur - subcapital fracture. Bed requested for Telemetry/MedSurg (Inpatient). Status is Inpatient Admission. Condition is Stable. Problem is new. Symptoms have improved. dw
--- NOTE | 2020-04-19 11:26 | ER ---
Nurse's Notes [facility] Name: Rosalie Obrien Age: 84 yrs Sex: Female : 1935 Arrival Date: 04/19/2020 Time: 09:46 Bed 17 Private MD: Diagnosis: Fracture of unspecified part of neck of left femur-subcapital fracture Presentation: 04/19 10:14 Chief complaint: EMS states: fell this morning after slipping on water, c/o pain in the em left pelvic area. Coronavirus screen: Client denies travel out of the [place] in the last 14 days. Ebola Screen: Patient negative for fever greater than or equal to 101.5 degrees Fahrenheit, and additional compatible Ebola Virus Disease symptoms Patient denies exposure to infectious person. Patient denies travel to an Ebola-affected area in the 21 days before illness onset. No symptoms or risks identified at this time. Initial Sepsis Screen: Does the patient meet any 2 criteria? No. Patient's initial sepsis screen is negative. Does the patient have a suspected source of infection? No. Patient's initial sepsis screen is negative. Risk Assessment: Do you want to hurt yourself or someone else? Patient reports no desire to harm self or others. Onset of symptoms was April 19, 2020. 10:14 Method Of Arrival: EMS: [facility] em 10:14 Acuity: RU 3 em 10:14 Care prior to arrival: None. Mechanism of Injury: Mechanism of Injury: Fall from em standing position. Trauma event details: Injury occurred in the [facility], Injury occurred: at home. Injury occurred: April 19, 2020. Trauma Activation: Not Applicable Physician: ED Physician; Name: ; Notified At: ; Arrived At: Physician: General Surgeon; Name: ; Notified At: ; Arrived At: Physician: Radiology; Name: ; Notified At: ; Arrived At: Physician: Respiratory; Name: ; Notified At: ; Arrived At: Physician: Lab; Name: ; Notified At: ; Arrived At: Historical: - Allergies: 10:17 Iodine; em - PMHx: 10:17 Hyperlipidemia; Hypertension; em - PSHx: 13:21 Hysterectomy; Appendectomy; CABG; em - Immunization history:: Adult Immunizations up to date. - Social history:: Smoking status: Patient denies any tobacco usage or history of. Screenin:17 Abuse screen: Denies threats or abuse. Nutritional screening: No deficits noted. em Tuberculosis screening: No symptoms or risk factors identified. Fall Risk Fall in past 12 months (25 points). Total Simpson Fall Scale indicates Low Risk Score (25-44 pts). Side Rails Up X 2 Placed close to Nursing Station Frequent Obs/Assesments occuring. Primary Survey: 10:10 NO uncontrolled hemorrhage observed. A: The patient is alert. A: Airway: patent. em Breathing/Chest: Respiratory pattern: regular, Respiratory effort: spontaneous. Circulation: Heart tones present. Pulses: palpable right dorsalis pedis artery and left dorsalis pedis artery. Skin color: pink. Disability Alert. Exposure/Environment: All clothing and personal items were removed. Forensic evidence collection is not deemed to be indicated at this time. Items placed in patient belonging bag. There is no evidence of uncontrolled external bleeding. Obvious injury(ies) are noted at this time: left hip. Reassessment Breathing/Chest Respiratory pattern Regular Respiratory effort Spontaneous Circulation Heart tones Present Disability Alert. Assessment: 10:10 General: Appears uncomfortable, Behavior is cooperative, restless. Pain: Complains of em pain in left hip Pain currently is 10 out of 10 on a pain scale. Pain began this morning. Neuro: Level of Consciousness is awake, alert, obeys commands, Oriented to person, place, time, situation, Appropriate for age. Cardiovascular: Capillary refill < 3 seconds Patient's skin is warm and dry. Respiratory: Airway is patent Respiratory effort is even, unlabored, Respiratory pattern is regular, symmetrical. Derm: Skin is intact, is fragile, is thin, Skin is pink, warm \T\ dry. Musculoskeletal: Range of motion: limited in left hip. 10:39 Reassessment: Patient appears in no apparent distress at this time. Patient and/or em family updated on plan of care and expected duration. Pain level reassessed. Patient is alert, oriented x 3, equal unlabored respirations, skin warm/dry/pink. rates pain 5/10 Patient states feeling better. Patient states symptoms have improved. 11:20 Reassessment: reports pain is coming back, pt uncomfortable, provider notified, will em repeat medication. 12:15 Reassessment: Patient appears in no apparent distress at this time. Patient and/or em family updated on plan of care and expected duration. Pain level reassessed. Patient is alert, oriented x 3, equal unlabored respirations, skin warm/dry/pink. 13:15 Reassessment: Patient appears in no apparent distress at this time. Patient and/or em family updated on plan of care and expected duration. Pain level reassessed. Patient is alert, oriented x 3, equal unlabored respirations, skin warm/dry/pink. 14:15 Reassessment: Patient appears in no apparent distress at this time. Patient and/or em family updated on plan of care and expected duration. Pain level reassessed. Patient is alert, oriented x 3, equal unlabored respirations, skin warm/dry/pink. Vital Signs: 10:14 BP 186 / 69; Pulse 74; Resp 18; Pulse Ox 96% on R/A; Pain 10/10; em 10:39 Temp 98.7(O); Weight 70.31 kg; Height 5 ft. 7 in. (170.18 cm); Pain 5/10; em 11:35 BP 178 / 66; Pulse 70; Resp 18; Pulse Ox 95% on R/A; em 12:30 BP 149 / 56; Pulse 62; Resp 16; Pulse Ox 92% on R/A; em 13:30 BP 154 / 63; Pulse 66; Resp 16; Pulse Ox 97% on R/A; em 14:30 BP 154 / 62; Pulse 65; Resp 20; Pulse Ox 96% on R/A; em 10:39 Body Mass Index 24.28 (70.31 kg, 170.18 cm) em [place] Coma Score: 10:10 Eye Response: spontaneous(4). Verbal Response: oriented(5). Motor Response: obeys em commands(6). Total: 15. Trauma Score (Adult): 10:10 Eye Response: spontaneous(1); Verbal Response: oriented(1); Motor Response: obeys em commands(2); Systolic BP: > 89 mm Hg(4); Respiratory Rate: 10 to 29 per min(4); [place] Score: 15; Trauma Score: 12 ED Course: 09:46 Patient arrived in ED. ss 09:46 Raman Romo NP is PHCP. pm1 09:46 Kiko Wells MD is Attending Physician. pm1 10:02 Al Rasheed RN is Primary Nurse. em 10:14 Inserted saline lock: 22 gauge in right forearm, using aseptic technique. em 10:14 Patient maintains SpO2 saturation greater than 95% on room air. em 10:14 Thermoregulation: warm blanket given to patient. em 10:16 Triage completed. em 10:17 Arm band placed on. em 10:17 Patient has correct armband on for positive identification. Bed in low position. Call em light in reach. Side rails up X2. Pulse ox on. NIBP on. 10:29 Hip Left 2 View XRAY In Process Unspecified. EDMS 11:15 EKG done, by ED staff, reviewed by Raman Romo NP. dh3 11:23 Khris Garcia MD is Hospitalizing Provider. pm1 11:35 Chest Single View XRAY In Process Unspecified. EDMS 13:07 covid swab sent to lab. em 14:49 No provider procedures requiring assistance completed. Patient admitted, IV remains in em place. Administered Medications: 10:14 Drug: Zofran (Ondansetron) 4 mg Route: IVP; Site: right forearm; em 10:39 Follow up: Response: No adverse reaction em 10:16 Drug: morphine 4 mg Route: IVP; Site: right forearm; em 10:39 Follow up: Response: No adverse reaction; Marked relief of symptoms; Pain is decreased em 11:24 Drug: NS 0.9% 1000 ml Route: IV; Rate: 100 ml/hr; Site: right forearm; em 14:56 Follow up: IV Status: Infusion continued upon admission; IV Intake: 300ml em 11:24 Drug: morphine 4 mg Route: IVP; Site: right forearm; em 12:30 Follow up: Response: No adverse reaction; Marked relief of symptoms; Pain is decreased em 14:33 Drug: morphine 2 mg Route: IVP; Site: right forearm; em 14:56 Follow up: Response: No adverse reaction em Intake: 14:56 IV: 300ml; Total: 300ml. em Output: 14:52 Urine: 0ml; Total: 0ml. em Outcome: 11:25 Decision to Hospitalize by Provider. pm1 14:49 Admitted to Med/surg accompanied by tech, via stretcher, room 232, with chart, Report em called to CHANELL Shankar 14:49 Condition: stable 14:49 Instructed on the need for admit, Demonstrated understanding of instructions. 14:52 Patient's length of stay in the Emergency Department was greater than 2 hours. em Patient's length of stay was extended due to staffing issues within the emergency department. 14:57 Patient left the ED. em Signatures: Dispatcher [employer] Al James RN RN em Smirch, Shelby, RN RN ss Marinas, Patrick, NP STILL OPERATOR pm1 Malou Hassan [facility]
--- NOTE | 2020-04-19 12:19 | RAD REPORT ---
EXAM DESCRIPTION: RAD - Hip Left 2 View - 04/19/2020 10:29 am CLINICAL HISTORY: PAIN Fall, pain COMPARISON: No comparisons FINDINGS: Subcapital fracture is seen of the proximal left femur with varus angulation. No evidence of dislocation.
--- NOTE | 2020-04-19 12:24 | RAD REPORT ---
EXAM DESCRIPTION: RAD - Chest Single View - 04/19/2020 11:34 am CLINICAL HISTORY: preoperative Chest pain. COMPARISON: Chest Single View dated 07/25/2018; Chest Single View dated 07/06/2018; CHEST PA AND LAT 2 VIEW dated 10/15/2010; CHEST PA AND LAT 2 VIEW dated 02/07/2007 FINDINGS: Portable technique limits examination quality. The lungs are grossly clear. The heart is upper limit of normal in size. Sternotomy wires noted. IMPRESSION: No acute intrathoracic process suspected.
[2020-04-19 14:35] VITALS: BMI 24.1
[2020-04-19] MEDS ORDERED: MORPHINE 2 MG/ML SYR ONE (14:47)
[2020-04-19] MEDS: NA CHLORIDE 0.9% 1,000 ML IV SCH (15:02)
[2020-04-19] MEDS: MORPHINE 4 MG/ML SYR IV PRN ×2 (17:33→22:52)
--- NOTE | 2020-04-19 17:43 | RAD REPORT ---
EXAM DESCRIPTION: RAD - Foot Left 3 View - 04/19/2020 5:27 pm CLINICAL HISTORY: foot pain Trauma, pain COMPARISON: Foot Left 3 View dated 06/05/2015; FOOT W OBLIQUES dated 04/05/2010 FINDINGS: Oblique fracture is seen involving the shaft of the fifth metatarsal with adjacent soft ti ssue swelling. Prominent calcaneal spurs.
--- NOTE | 2020-04-19 18:01 | P.HP ---
Certification for Inpatient Patient admitted to: Inpatient With expected LOS: >2 Midnights Practitioner: I am a practitioner with admitting privileges, knowledge of patient current condition, hospital course, and medical plan of care. Services: Services provided to patient in accordance with Admission requirements found in Title 42 Section 412.3 of the Code of Federal Regulations Patient History Date of Service: 04/19/20 Reason for admission: HIP PAIN AFTER FALL. History of Present Illness: LYDIA IS 84 YEARS OLD LADY WITH HISTORY OF CAD WHO HAS NOT HAD ANY EVENT OR SYMPTOM FOR YEARS. SHE FELL AT HOME WHILE GARDENING THE HOSE TANGLED HER AND SHE FELL ON L SIDE. SHE HAS L HIP FRACTURE SUBCAPITAL AND L LATERAL TOE FRACTURE. SHE ALSO HURTS IN ARM AND HAND L SIDE BUT X RAY WILL BE DONE AFTER SURGERY ANY MOVEMENT FOR X RAYS ARE GIVING HER TOO MUCH PAIN. Allergies regadenoson [From Lexiscan] Allergy (Verified 08/14/18 10:28) syncope contrast Allergy (Uncoded 04/19/20 15:08) weakness/passing out Home Medications: Aspirin [Aspirin EC 81 MG] 81 mg PO DAILY 08/05/17 Atorvastatin Calcium 40 mg PO DAILY 08/05/17 Losartan Potassium [Cozaar*] 50 mg PO DAILY AFTER SUPPER 08/05/17 Metoprolol Succinate [Toprol Xl*] 50 mg PO DAILY 08/05/17 Dillon-3/Dha/Epa/Fish Oil [Fish Oil 1,000 mg Softgel] 1 tab PO DAILY 04/19/20 Vitamin E 1 tab PO SEECOM 04/19/20 - Past Medical/Surgical History Has patient received pneumonia vaccine in the past: Yes Diabetic: No -: HTN -: CAD -: Hyperlipidemia -: double bypass -: appendectomy -: right hand surgery - Family History Mother -: Cancer Notes: pancreatic cancer - Social History Smoking Status: Never smoker Alcohol use: No CD- Drugs: No Caffeine use: Yes Place of Residence: Home Review of Systems 10-point ROS is otherwise unremarkable General: Weakness Physical Examination - Vital Signs Temperature: 97.1 F Blood Pressure: 140/80 Pulse: 73 Respirations: 18 Pulse Ox (%): 96 - Physical Exam General: Moderate distress HEENT: Atraumatic, PERRLA, Mucous membr. 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.) Integumentary: No rashes Neurological: Normal gait, Normal speech, Normal strength at 5/5 x4 extr, Normal tone, Normal affect Lymphatics: No axilla or inguinal lymphadenopathy - Studies Laboratory Data (last 24 hrs) 04/19/20 10:55: PT 12.3, INR 1.04 04/19/20 10:55: Sodium 143, Potassium 4.0, BUN 18, Creatinine 0.84, Glucose 98, Total Bilirubin 1.3 H, AST 64 H, ALT 56, Alkaline Phosphatase 55 04/19/20 10:55: WBC 15.5 H, Hgb 13.1, Hct 38.6, Plt Count 191 Assessment and Plan - Problems (Diagnosis) (1) Subcapital fracture of left hip Current Visit: Yes Status: Acute Plan: SHE WILL GO FOR SURGERY IN AM. SHE HAS LOW RISK OF ANESTHESIA WITH REMOTE CAD HISTORY AND NORMAL EKG THIS TIME. REHAB AFTER SURGERY. SHE LIVES ALONE AND HAS L ARM, HAND AND TOE INJURIES ALSO. Qualifiers: Encounter type: initial encounter Fracture type: closed Qualified Code(s): S72.012A - Unspecified intracapsular fracture of left femur, initial encounter for closed fracture (2) History of coronary artery disease Current Visit: Yes Status: Chronic Plan: NO ACUTE SYMPTOMS AND NORMAL EKG. - Advance Directives Does patient have a Living Will: Yes Does patient have a Durable POA for Healthcare: Yes
[2020-04-19] MEDS: ONDANSETRON 4 MG/2 ML VIAL IV PRN (18:12)
[2020-04-19] MEDS: LOSARTAN POTASSIUM 50 MG TABLET PO SCH (18:12)
--- NOTE | 2020-04-19 22:13 | CON ---
Date of Consultation: 04/19/2020 History Of Present Illness: This is my first time seeing this patient to my knowledge. She is an 84 -year-old female who unfortunately this morning fell in her yard while she was watering her garden, i njuring her left lower extremity, also has a small bruise on her left hand. She was seen and examine d in the emergency department where x-rays were taken and she was admitted to the floor. I am called to see her with regard to her hip. Physical Examination: All of her long bones and joints are palpated without pain or crepitation with the exception of her l eft wrist, which appears to be bruised. 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 Direct palpation of the bruise cause mild discomfort, but no concern of fracture. Otherwise, she has pain with any move ment or manipulation of her left hip and also has some pain at the lateral aspect of her foot. This very well may be a fractured metatarsal and we will ask for x-rays of this, although it does not appe ar to be anything that would stop her from being potentially weightbearing as tolerated, except with regard to her hip, although we will need to review the x-rays. Otherwise, she is under the care of Guanaco Garcia. We will make sure that she is cleared for surgery and risks, benefits, and alternatives to bipolar he miarthroplasty have been discussed with the patient. We will attempt to get this coordinated with [facility] operating room for most likely tomorrow morning, and all her questions were otherwise answered incl uding risks, benefits, and alternatives. /YEN Voice ID: [id number] Report ID: [id number]
[2020-04-20] MEDS: NA CHLORIDE 0.9% 1,000 ML IV SCH ×2 (00:06→11:37)
[2020-04-20 05:10] LABS: Absolute Lymphocytes (CBC) 1.3 K/uL (0.7-4.9); Basophils % 0.6 % (0-1.3); Hematocrit 36.7 % (36.0-45.0); Lymphocytes % 12.9 % (15.3-44.8); MPV 7.9 fL (7.6-11.3); RBC Red Blood Cell Count 3.91 M/uL (3.86-4.86)
[2020-04-20] MEDS: MORPHINE 4 MG/ML SYR IV PRN ×2 (05:45→21:18)
[2020-04-20] MEDS ORDERED: HYDROMORPHONE HCL 1 MG/ML INJ ONE (07:08)
[2020-04-20] MEDS ORDERED: ROCURONIUM 50 MG/5 ML VIAL IV ONE (07:14)
[2020-04-20] MEDS ORDERED: LIDOCAINE 2% MPF 5 ML VIAL ONE (07:14)
[2020-04-20] MEDS ORDERED: propofoL 200 MG/20 ML VIAL IV ONE (07:14)
[2020-04-20] MEDS ORDERED: Phenylephrine HCl 10 MG/ML 1 ML VIAL ONE (07:15)
[2020-04-20] MEDS ORDERED: NA CHLORIDE 0.9% 250 ML ONE (07:17)
[2020-04-20] MEDS ORDERED: CEFAZOLIN/SWI 1gm 1 GM/10 ML SYR ONE (07:20)
[2020-04-20] MEDS ORDERED: TRANEXAMIC ACID 1,000 MG in NA CHLORIDE 0.9% 50 ML IV ONE (08:00)
[2020-04-20] MEDS ORDERED: KETOROLAC 30 MG/ML INJ ONE (08:04)
[2020-04-20] MEDS ORDERED: FENTANYL CITR 100 MCG/2 ML ONE (08:04)
[2020-04-20] MEDS ORDERED: ONDANSETRON 4 MG/2 ML VIAL ONE ×2 (08:05→10:32)
[2020-04-20] MEDS ORDERED: dexAMETHasone 10 MG/ML VIAL ONE (08:05)
[2020-04-20] MEDS ORDERED: NEOSTIGMINE 1 MG/ML -5 ML ONE (08:42)
[2020-04-20] MEDS ORDERED: GLYCOPYRROLATE 0.2 MG/ML SYR ONE (08:42)
[2020-04-20] MEDS: METOPROLOL XL 50 MG TAB PO SCH (09:00)
[2020-04-20] MEDS: ATORVASTATIN 40 MG TAB PO SCH (09:00)
--- NOTE | 2020-04-20 09:19 | P.BOP ---
Preoperative diagnosis: left femoral neck fracture Postoperative diagnosis: same Primary procedure: left bipolar hemiarthoplasty Estimated blood loss: 100 ccs Anesthesia: General Transferred to: Recovery Room Condition: Good
[2020-04-20] MEDS ORDERED: MORPHINE 10 MG/ML VIAL ONE (09:20)
[2020-04-20] MEDS ORDERED: HYDRALAZINE HCL 20 MG/ML VIAL ONE (09:56)
--- NOTE | 2020-04-20 12:25 | OP ---
Date of Procedure: 04/20/2020 Surgeon: Tristian Devine MD Preoperative Diagnosis: Left hip displaced femoral neck fracture. Postoperative Diagnosis: Left hip displaced femoral neck fracture. Procedure: Left hip bipolar hemiarthroplasty using a cemented Biomet fracture stem. Estimated Blood Loss: 100 cc. Complications: There were no complications. Indications For Operation: Ms. Obrien is an 84-year-old female who was out watering her garden when unfortunately she fell, injuring her left lower extremity. She was seen and examined in the emergen cy department yesterday where she was ruled out for other injuries; however, she had an x-ray taken o f her hip, which demonstrated displaced left femoral neck fracture. Risks, benefits, and alternative s of this procedure have been discussed with the patient; however, on physical examination, she was n oted also to have pain in her left foot. She had x-rays taken of her foot, which demonstrated a rela tively nondisplaced oblique fracture of the distal 5th metatarsal. This was consistent with a dancer fracture. I think she can be weightbearing as tolerated on this; however, she may need a boot and t his is not an operative injury other than the hip. Description Of Procedure: Patient was taken to the operating room, placed in supine position, and ge neral anesthesia was obtained by staff. Following this, she was then rolled right side down with an axillary roll. Left lower extremity was then prepped and draped in usual sterile fashion for the pro cedure after hip positioning had been done and all bony prominences were checked. After this, a jose dard posterior lateral incision was taken down carefully through skin and soft tissues, meticulous he mostasis being maintained using Bovie electrocautery, was taken down carefully to the fascia. A smal l stab wound was made in the fascia, which demonstrated fascial incision in the correct location. Th is was then taken up very slowly and carefully near the tip of the greater trochanter where the fiber s of gluteus dane were encountered. These were then spread using finger pressure. Following this , some of the bursa was removed and the sciatic nerve was palpated. It should be noted that the scia tic nerve was superficial to the external rotators and was very carefully protected throughout the re mainder of the case. After the fascia was retracted using a Charnley to allow for better visualizati on of the nerve, the external rotators and capsule were then taken down carefully and tagged for late r repair as a unit. After this, the femoral neck was then sawed slightly lower than was anticipated because the fracture line did extend slightly more distally, however, definitely good amount of calca r remaining. The neck pieces were removed and the head was removed without difficulty and sized usin g ring gauges to a size 47. The soft tissue was removed from the acetabulum and there was no signifi cant bleeding. After this, the weigh box tender was used to establish the femoral canal and the canal-find ing reamer was used. It was then sequentially reamed up to a size 11 using cylindrical reamers. A 1 2 may have passed; however, definitely was fairly tight. Decision was made to begin broaching. It w as then broached up to a size 11. After this, the canal was then vigorously irrigated until the jonnathan l fluid ran clear. The bone plug was placed to appropriate depth. Third generation cementation tech nique was then used to place a size 9 Biomet fracture stem. It was held in place and allowed to hard en with any unsupported cement being removed. After this, it was initially trialed with a +3 as the femoral neck cut was fairly low. This could have been good with flexion and internal rotation and ad duction; however, did appear to dislocate at approximately 30 degrees and she definitely had full hip extension, very little of any shuck; however, it was again trialed with a +6. +6 appeared to be mor e stable in the extremes of motion and definitely no shuck. She could still come to full hip extensi on. +6 was slotted on for considerations regarding possible dislocation and the wound was copiously irrigated. +6 was then placed. It was then reduced. It was found to be stable in above areas. Ext ernal rotators and capsule were then repaired back using bone tunnels. Wound was again irrigated. T he fascia was closed in a watertight fashion using 0 Vicryl sutures, was followed by closure of the s kin using Vicryl and followed by keturah. Patient was then placed in Aquacel dressing, awakened, and taken to recovery ro in good condition. /YEN Voice ID: [id number] Report ID: [id number]
--- NOTE | 2020-04-20 15:06 | P.PN ---
Subjective Date of Service: 04/20/20 Chief Complaint: SP SURGERY DAY ZERO TODAY Subjective: Improving LYDIA IS EVERY GROGGY NOW AFTER SURGERY. SHE SAYS I FEEL WEIRD AND DIZZY. HER BP IS GOOD. I CHECKED HER ORIENTATION AND SHE COULD TELL ME WHERE SHE WAS, WHO I WAS AND WHAT YEAR IS THIS. RESPONSE WAS SLOW AND DISTANT. Review of Systems 10-point ROS is otherwise unremarkable General: Weakness Physical Examination - Vital Signs Temperature: 96.7 F Blood Pressure: 136/62 Pulse: 70 Respirations: 22 Pulse Ox (%): 96 - Physical Exam General: Moderate distress HEENT: Atraumatic, PERRLA, EOMI Neck: Supple, JVD not distended Respiratory: Clear to auscultation bilaterally, Normal air movement Cardiovascular: Regular rate/rhythm, Normal S1 S2 Gastrointestinal: Normal bowel sounds, No tenderness Musculoskeletal: No tenderness Integumentary: No rashes Neurological: Normal speech, Normal tone, Normal affect Lymphatics: No axilla or inguinal lymphadenopathy - Studies Medications List Reviewed: Yes Assessment And Plan - Current Problems (Diagnosis) (1) Subcapital fracture of left hip Current Visit: Yes Status: Acute Plan: SHE WILL GO FOR SURGERY IN AM. SHE HAS LOW RISK OF ANESTHESIA WITH REMOTE CAD HISTORY AND NORMAL EKG THIS TIME. REHAB AFTER SURGERY. SHE LIVES ALONE AND HAS L ARM, HAND AND TOE INJURIES ALSO. SP SURGERY DAY ZERO. POST OP CONFUSION. SHE SHOULD GET BETTER. Qualifiers: Encounter type: initial encounter Fracture type: closed Qualified Code(s): S72.012A - Unspecified intracapsular fracture of left femur, initial encounter for closed fracture (2) History of coronary artery disease Current Visit: Yes Status: Chronic Plan: NO ACUTE SYMPTOMS AND NORMAL EKG.
--- NOTE | 2020-04-20 15:36 | EKG ---
Test Date: 2020-04-19 Test Time: 11:26:13 Presser Machine: MIRANDA MEASUREMENT RESULTS: Intervals: Rate: 68 [place]: 202 QRSD: 86 QT: 426 QTc: 452 [place]: P: 52 [place]: 202 QRS: 59 T: 71 INTERPRETIVE STATEMENTS: Normal sinus rhythm Normal ECG Compared to ECG 08/14/2018 10:22:16 Sinus arrhythmia no longer present Electronically Signed On 04-20-20 15:34:43 CDT by Darrick Posada
[2020-04-20] MEDS: CEFAZOLIN/SWI 1gm 1 GM/10 ML SYR IVP SCH (16:40)
[2020-04-20] MEDS: LOSARTAN POTASSIUM 50 MG TABLET PO SCH (16:40)
[2020-04-20] MEDS: ENOXAPARIN 40 MG/0.4 ML SQ SCH (16:40)
[2020-04-21] MEDS: CEFAZOLIN/SWI 1gm 1 GM/10 ML SYR IVP SCH ×2 (02:31→10:16)
[2020-04-21] MEDS: MORPHINE 4 MG/ML SYR IV PRN ×3 (02:35→13:37)
[2020-04-21] MEDS: NA CHLORIDE 0.9% 1,000 ML IV SCH ×4 (06:06→21:42)
[2020-04-21] MEDS: ATORVASTATIN 40 MG TAB PO SCH (10:16)
[2020-04-21] MEDS: METOPROLOL XL 50 MG TAB PO SCH (10:16)
[2020-04-21] MEDS: ONDANSETRON 4 MG/2 ML VIAL IV PRN (13:37)
--- NOTE | 2020-04-21 15:18 | RAD REPORT ---
EXAM DESCRIPTION: RAD - Clavicle Left - 04/21/2020 3:11 pm CLINICAL HISTORY: c/o pain Left shoulder pain COMPARISON: No comparisons FINDINGS: Humeral head is mildly high-riding which could indicate underlying rotator cuff pathology. Left AC joint degenerative changes are present. No acute fracture or dislocation.
--- NOTE | 2020-04-21 15:19 | RAD REPORT ---
EXAM DESCRIPTION: RAD - Humerus Left - 04/21/2020 3:14 pm CLINICAL HISTORY: c/o pain Left arm pain COMPARISON: No comparisons FINDINGS: No acute fracture or dislocation.
--- NOTE | 2020-04-21 15:20 | RAD REPORT ---
EXAM DESCRIPTION: RAD - Forearm Left - 04/21/2020 3:14 pm CLINICAL HISTORY: c/o pain Pain and swelling. COMPARISON: No comparisons FINDINGS: No acute fracture or dislocation seen. Radiocarpal arthritic changes are noted.
[2020-04-21] MEDS: LOSARTAN POTASSIUM 50 MG TABLET PO SCH (17:25)
[2020-04-21] MEDS: ENOXAPARIN 40 MG/0.4 ML SQ SCH (17:25)
--- NOTE | 2020-04-21 17:48 | P.PN ---
Subjective Date of Service: 04/21/20 Chief Complaint: SP SURGERY DAY ZERO TODAY Subjective: Improving LYDIA IS EVERY GROGGY NOW AFTER SURGERY. SHE SAYS I FEEL WEIRD AND DIZZY. HER BP IS GOOD. I CHECKED HER ORIENTATION AND SHE COULD TELL ME WHERE SHE WAS, WHO I WAS AND WHAT YEAR IS THIS. RESPONSE WAS SLOW AND DISTANT. SHE IS MUCH MORE AWAKE. SHE IS STILL IN TOO MUCH PAIN. SHE PASSED OUT ON SITTING UP IN PAIN. SHE HAS NO CHEST PAIN. Review of Systems 10-point ROS is otherwise unremarkable General: Weakness, Malaise Physical Examination - Vital Signs Temperature: 98.8 F Blood Pressure: 120/58 Pulse: 109 Respirations: 18 Pulse Ox (%): 92 - Physical Exam General: Alert, Moderate distress HEENT: Atraumatic, PERRLA, EOMI Neck: Supple, JVD not distended Respiratory: Clear to auscultation bilaterally, Normal air movement Cardiovascular: Regular rate/rhythm, Normal S1 S2 Gastrointestinal: Normal bowel sounds, No tenderness Musculoskeletal: No tenderness Integumentary: No rashes Neurological: Normal speech, Normal tone, Normal affect Lymphatics: No axilla or inguinal lymphadenopathy - Studies Medications List Reviewed: Yes Assessment And Plan - Current Problems (Diagnosis) (1) Subcapital fracture of left hip Current Visit: Yes Status: Acute Plan: SHE WILL GO FOR SURGERY IN AM. SHE HAS LOW RISK OF ANESTHESIA WITH REMOTE CAD HISTORY AND NORMAL EKG THIS TIME. REHAB AFTER SURGERY. SHE LIVES ALONE AND HAS L ARM, HAND AND TOE INJURIES ALSO. SP SURGERY DAY ZERO. POST OP CONFUSION. SHE SHOULD GET BETTER. SP SURGERY DAY 1 MUCH MORE AWAKE STILL IN A LOT OF PAIN ON L SIDE OF BODY. Qualifiers: Encounter type: initial encounter Fracture type: closed Qualified Code(s): S72.012A - Unspecified intracapsular fracture of left femur, initial en counter for closed fracture (2) History of coronary artery disease Current Visit: Yes Status: Chronic Plan: NO ACUTE SYMPTOMS AND NORMAL EKG. (3) Vasovagal episode Current Visit: Yes Status: Acute Plan: SHE HAD SYNCOPE AND THAT IS FROM THE PAIN RELATED VAGAL EPISODE MOST LIKELY. TELEMETRY HAS NSR OXYGEN MILD LOW NORMAL. SHE DOES NOT WANT ANY MORE TESTS SHE IS IN TOO MUCH PAIN. 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
[2020-04-22] MEDS: MORPHINE 4 MG/ML SYR IV PRN (01:26)
--- NOTE | 2020-04-22 05:28 | PN ---
Date of Progress Note: 04/21/2020 Subjective: The patient is seen today. Her dressing is clean, dry, and intact. She says she is not doing too well because she has complaints of right-sided foot pain as well as left-sided arm pain as well as left-sided neck pain. She is continued to complain of left foot pain. She is also obviousl y complaining of her left hip. It appears that her most serious considerations are her left hip and her left foot. Left foot does have a fifth metatarsal distal shaft fracture consistent with a dancer 's fracture. I spoke with Dr. Garcia about obtaining a fracture boot. She can be weightbearing as to lerated on that foot and she may decide not to use a fracture boot because of the weight that it has and really it is just to protect her foot and allow less painful ambulation. Obviously, if this make s her hip worse or decreases her ability to rehab with her hip. See how she does without it. Otherw ise, her hip incision is clean, dry, and intact and appears to be doing well. With regard to her lef t arm, she may have some slight bruising on it now. However, she does have full range of motion of t he shoulder as well as the elbow. She is complaining of weakness related to her arm and pain wheneve r she is lifting cup. However, she did have a bruise on her arm and her palm. This is resolving a l ittle, but I do not think she has any fracture or dislocation related to her arm and her neck and arm are most likely secondary to contusion and the fall. With regard to her right foot also probably as sociated with the fall. Assessment/plan: She is doing fairly well with multiple complaints. However, it appeared that her f oot could use a boot. If it does not decrease her rehab, otherwise, her hip continue rehabilitation. We will have her on anticoagulation for 3 weeks, then aspirin for 3 weeks, but remove the keturah a t day 10-14. Posterior hip precautions can be done. She has not really been participating in physic al therapy because she says that she has difficulty with apparently with her either today or soon. Her plan is to go to rehabilitation. This is understood. /YEN Voice ID: [id number] Report ID: [id number]
[2020-04-22 06:39] LABS: Absolute Lymphocytes (CBC) 1.7 K/uL (0.7-4.9); Basophils % 0.5 % (0-1.3); Hematocrit 23.8 % (36.0-45.0); Lymphocytes % 19.5 % (15.3-44.8); MPV 7.8 fL (7.6-11.3); RBC Red Blood Cell Count 2.56 M/uL (3.86-4.86)
[2020-04-22 06:42] LABS: BUN Blood Urea Nitrogen 9 mg/dL (7-18); Bicarbonate 27 mmol/L (21-32); Glucose Level 104 mg/dL (74-106); Magnesium 2.1 mg/dL (1.8-2.4); Potassium 3.5 mmol/L (3.5-5.1); Sodium Level 143 mmol/L (136-145)
[2020-04-22] MEDS: METOPROLOL XL 50 MG TAB PO SCH (08:45)
[2020-04-22] MEDS: ASPIRIN EC 81 MG TAB PO SCH (08:45)
[2020-04-22] MEDS: LOSARTAN POTASSIUM 50 MG TABLET PO SCH (08:45)
[2020-04-22] MEDS: ATORVASTATIN 40 MG TAB PO SCH (08:46)
[2020-04-22] MEDS ORDERED: VITAMIN E 400 IU CAP PO SCH (09:00)
[2020-04-22 13:42] LABS: Urine Appearance CLEAR; Urine Bilirubin NEGATIVE (NEG); Urine Blood TRACE (NEG); Urine Color YELLOW; Urine Glucose NEGATIVE (NEG); Urine Protein NEGATIVE (NEG); Urine pH 6.5 (5.0-7.0)
[2020-04-22 13:44] LABS: Urine Microscopic Reflex ORDER UMIC
[2020-04-22 14:17] LABS: Urine Bacteria <20 /HPF (<20); Urine Culture Reflex Order NOT NEEDED
[2020-04-22] MEDS: NA CHLORIDE 0.9% 1,000 ML IV SCH (17:25)
[2020-04-22] MEDS: ENOXAPARIN 40 MG/0.4 ML SQ SCH (17:25)
--- NOTE | 2020-04-22 20:53 | P.PN ---
Subjective Date of Service: 04/22/20 Chief Complaint: SP HIP FRACTURE Subjective: Improving LYDIA IS EVERY GROGGY NOW AFTER SURGERY. SHE SAYS I FEEL WEIRD AND DIZZY. HER BP IS GOOD. I CHECKED HER ORIENTATION AND SHE COULD TELL ME WHERE SHE WAS, WHO I WAS AND WHAT YEAR IS THIS. RESPONSE WAS SLOW AND DISTANT. SHE IS MUCH MORE AWAKE. SHE IS STILL IN TOO MUCH PAIN. SHE PASSED OUT ON SITTING UP IN PAIN. SHE HAS NO CHEST PAIN. SHE IS MUCH MORE AWAKE. STILL GRIEVING OF HER SON FROM CANCER. HE COMMITTED SUICIDE. SHE IS HURTING ON L SIDE OF BODY WHERE SHE FELL. Review of Systems 10-point ROS is otherwise unremarkable General: Weakness Physical Examination - Vital Signs Temperature: 99.6 F Blood Pressure: 129/67 Pulse: 92 Respirations: 18 Pulse Ox (%): 92 - Physical Exam General: Mild distress HEENT: Atraumatic, PERRLA, EOMI Neck: Supple, JVD not distended Respiratory: Clear to auscultation bilaterally, Normal air movement Cardiovascular: Regular rate/rhythm, Normal S1 S2 Gastrointestinal: Normal bowel sounds, No tenderness Musculoskeletal: No tenderness Integumentary: No rashes Neurological: Normal speech, Normal tone, Normal affect Lymphatics: No axilla or inguinal lymphadenopathy - Studies Medications List Reviewed: Yes Assessment And Plan - Current Problems (Diagnosis) (1) Subcapital fracture of left hip Current Visit: Yes Status: Acute Plan: SHE WILL GO FOR SURGERY IN AM. SHE HAS LOW RISK OF ANESTHESIA WITH REMOTE CAD HISTORY AND NORMAL EKG THIS TIME. REHAB AFTER SURGERY. SHE LIVES ALONE AND HAS L ARM, HAND AND TOE INJURIES ALSO. SP SURGERY DAY ZERO. POST OP CONFUSION. SHE SHOULD GET BETTER. SP SURGERY DAY 1 MUCH MORE AWAKE STILL IN A LOT OF PAIN ON L SIDE OF BODY. REHAB REF. PENDING. Qualifiers: Encounter type: initial encounter Fracture type: closed Qualified Code(s): S72.012A - Unspecified intracapsular fracture of left femur, initial encounter for closed fracture (2) History of coronary artery disease Current Visit: Yes Status: Chronic Plan: NO ACUTE SYMPTOMS AND NORMAL EKG. (3) Vasovagal episode Current Visit: Yes Status: Acute Plan: SHE HAD SYNCOPE AND THAT IS FROM THE PAIN RELATED VAGAL EPISODE MOST LIKELY. TELEMETRY HAS NSR OXYGEN MILD LOW NORMAL. SHE DOES NOT WANT ANY MORE TESTS SHE IS IN TOO MUCH PAIN. 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
[2020-04-23] MEDS: MORPHINE 4 MG/ML SYR IV PRN ×2 (01:33→08:27)
[2020-04-23 05:53] LABS: Absolute Lymphocytes (CBC) 1.7 K/uL (0.7-4.9); Basophils % 0.7 % (0-1.3); Lymphocytes % 22.1 % (15.3-44.8); MPV 7.7 fL (7.6-11.3); RBC Red Blood Cell Count 2.37 M/uL (3.86-4.86)
[2020-04-23 06:09] LABS: BUN Blood Urea Nitrogen 10 mg/dL (7-18); Bicarbonate 30 mmol/L (21-32); Glucose Level 102 mg/dL (74-106); Potassium 3.3 mmol/L (3.5-5.1); Sodium Level 144 mmol/L (136-145)
[2020-04-23] MEDS: METOPROLOL XL 50 MG TAB PO SCH (08:26)
[2020-04-23] MEDS: LOSARTAN POTASSIUM 50 MG TABLET PO SCH (08:26)
[2020-04-23] MEDS: ASPIRIN EC 81 MG TAB PO SCH (08:26)
[2020-04-23] MEDS: ATORVASTATIN 40 MG TAB PO SCH (08:27)
[2020-04-23 09:26] VITALS: O2SAT 96
--- NOTE | 2020-04-23 13:07 | P.PN ---
Subjective Date of Service: 04/23/20 Chief Complaint: SP HIP FRACTURE Subjective: Chary FREEMAN IS EVERY GROGGY NOW AFTER SURGERY. SHE SAYS I FEEL WEIRD AND DIZZY. HER BP IS GOOD. I CHECKED HER ORIENTATION AND SHE COULD TELL ME WHERE SHE WAS, WHO I WAS AND WHAT YEAR IS THIS. RESPONSE WAS SLOW AND DISTANT. SHE IS MUCH MORE AWAKE. SHE IS STILL IN TOO MUCH PAIN. SHE PASSED OUT ON SITTING UP IN PAIN. SHE HAS NO CHEST PAIN. SHE IS MUCH MORE AWAKE. STILL GRIEVING OF HER SON FROM CANCER. HE COMMITTED SUICIDE. SHE IS HURTING ON L SIDE OF BODY WHERE SHE FELL. NURSE CALLED. HG DOWN TO 7.6 TRANFUSION ORDER GIVEN. SHE IS LOT MORE CHEERFUL TODAY. ABLE TO WALK A FEW STEPS. Review of Systems 10-point ROS is otherwise unremarkable General: Weakness Physical Examination - Vital Signs Temperature: 98.6 F Blood Pressure: 133/56 Pulse: 86 Respirations: 17 Pulse Ox (%): 98 - Physical Exam General: Mild distress, Moderate distress HEENT: Atraumatic, PERRLA, EOMI Neck: Supple, JVD not distended Respiratory: Clear to auscultation bilaterally, Normal air movement Cardiovascular: Regular rate/rhythm, Normal S1 S2 Gastrointestinal: Normal bowel sounds, No tenderness Musculoskeletal: Tenderness, Other Integumentary: No rashes Neurological: Normal speech, Normal tone, Normal affect Lymphatics: No axilla or inguinal lymphadenopathy - Studies Medications List Reviewed: Yes Assessment And Plan - Current Problems (Diagnosis) (1) Subcapital fracture of left hip Current Visit: Yes Status: Acute Plan: SHE WILL GO FOR SURGERY IN AM. SHE HAS LOW RISK OF ANESTHESIA WITH REMOTE CAD HISTORY AND NORMAL EKG THIS TIME. REHAB AFTER SURGERY. SHE LIVES ALONE AND HAS L ARM, HAND AND TOE INJURIES ALSO. SP SURGERY DAY ZERO. POST OP CONFUSION. SHE SHOULD GET BETTER. SP SURGERY DAY 1 MUCH MORE AWAKE STILL IN A LOT OF PAIN ON L SIDE OF BODY. REHAB REF. PENDING. REHAB TRANSFER AFTER BLOOD. Qualifiers: Encounter type: initial encounter Fracture type: closed Qualified Code(s): S72.012A - Unspecified intracapsular fracture of left femur, initial encounter for closed fracture (2) History of coronary artery disease Current Visit: Yes Status: Chronic Plan: NO ACUTE SYMPTOMS AND NORMAL EKG. (3) Vasovagal episode Current Visit: Yes Status: Acute Plan: SHE HAD SYNCOPE AND THAT IS FROM THE PAIN RELATED VAGAL EPISODE MOST LIKELY. TELEMETRY HAS NSR OXYGEN MILD LOW NORMAL. SHE DOES NOT WANT ANY MORE TESTS SHE IS IN TOO MUCH PAIN. 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
[2020-04-23] MEDS: NA CHLORIDE 0.9% 1,000 ML IV SCH ×2 (14:57→18:10)
[2020-04-23 16:56] VITALS: BP 140/64; TEMP 97
[2020-04-23 17:46] LABS: Hematocrit 28.3 % (36.0-45.0)
[2020-04-23] MEDS ORDERED: TRAMADOL 37.5mg/APAP 325mg PER TAB PO PRN (18:09)
== END 2020-04-23 18:33 | DRG 470 ==
LOC: ER 09:45 → ERHOLD 12:57 → 2ND 14:26
PROVIDERS: ADMIT Internal Medicine; ATTEND Internal Medicine
PROC: 0SRS0J9 Replacement of Left Hip Joint, Femoral Surface with Synthetic Substitute, Cemented, Open Approach (ICD-10-PCS; principal; 2020-04-20 07:00)
DX: S72.012A Unspecified intracapsular fracture of left femur, initial encounter for closed fracture (principal); S92.912A Unspecified fracture of left toe(s), initial encounter for closed fracture; I10 Essential (primary) hypertension; E78.5 Hyperlipidemia, unspecified; I25.10 Atherosclerotic heart disease of native coronary artery without angina pectoris; R55 Syncope and collapse; Y93.H2 Activity, gardening and landscaping; W01.0XXA Fall on same level from slipping, tripping and stumbling without subsequent striking against object, initial encounter; Z60.2 Problems related to living alone; Z90.710 Acquired absence of both cervix and uterus; Z90.49 Acquired absence of other specified parts of digestive tract; Z91.041 Radiographic dye allergy status; Z79.899 Other long term (current) drug therapy; Z79.82 Long term (current) use of aspirin; Z88.8 Allergy status to other drugs, medicaments and biological substances; Z11.59 Encounter for screening for other viral diseases
CPT/HCPCS: 36415; 71045; 80048; 80053; 81003; 81015; 83735; 84443; 85014; 85018; 85025; 85610; 86850; 86900; 86901; 88305; 88311; 93005; 96361; 96374; 96375; 97110; 97116; 97124; 97161; 97165; 97530; 99285; J0360; J0690; J1100; J1170; J1650; J2270; J2370; J2405; J2704; J2710; J3010; J7030; J7050; P9016; U0003

== ENCOUNTER 2020-04-22 12:20 | Inpatient (IN) | payer OTHER, SELFPAY ==
--- OUTSIDE RECORDS SUMMARY | 2020-04-23 18:35 | XMS REPORT | Clinical Summary ---
:1935 Author Organization [facility] Address [address] [place] [address] Care Team Providers Name Role Phone MD [...] INFLUENZA VACCINE 05/06/2020 Results Not on fileafter 04/23/2019 Advance Directives For more information, please contact: [phone] Type Date Recorded Patient [facility] [facility] [employer] Specialist Explanati on Advance Directives, Living Will and Medical Power of Pony Ride Attendant
[2020-04-23] MEDS ORDERED: TRAMADOL 37.5mg/APAP 325mg PER TAB PO PRN (18:48)
[2020-04-23] MEDS ORDERED: ACETAMINOPHEN 500 MG TAB PO PRN (19:35)
[2020-04-23] MEDS ORDERED: ONDANSETRON 4 MG (ODT) TAB PO PRN (19:37)
[2020-04-23] MEDS: ATORVASTATIN 40 MG TAB PO SCH (19:45)
[2020-04-23 19:52] VITALS: BMI 26.4
[2020-04-23] MEDS: PROMOD 30 ML DOSE PO SCH (20:04)
[2020-04-23] MEDS: DOCUSATE NA/SENNA CONC 1 TAB PO PRN (20:24)
[2020-04-23 23:52] LABS: Urine Appearance CLEAR; Urine Bilirubin NEGATIVE (NEG); Urine Blood TRACE (NEG); Urine Color YELLOW; Urine Glucose NEGATIVE (NEG); Urine Protein NEGATIVE (NEG); Urine Specific Gravity <=1.005 (1.005-1.030)
[2020-04-24 00:30] LABS: Urine Bacteria <20 /HPF (<20); Urine Culture Reflex Order REFLEXED; Urine RBC <5 /HPF (NONE SEEN); Urine Urothelial Cells <5 /HPF (NONE SEEN)
[2020-04-24] MEDS: TRAMADOL HCL 50 MG TAB PO PRN ×4 (04:07→19:50)
[2020-04-24 06:16] LABS: Absolute Lymphocytes (CBC) 1.1 K/uL (0.7-4.9); Basophils % 0.7 % (0-1.3); Hematocrit 24.6 % (36.0-45.0); Lymphocytes % 17.2 % (15.3-44.8); MPV 7.7 fL (7.6-11.3); RBC Red Blood Cell Count 2.65 M/uL (3.86-4.86)
[2020-04-24 06:35] LABS: Albumin 2.3 g/dL (3.4-5.0); BUN Blood Urea Nitrogen 11 mg/dL (7-18); Bicarbonate 28 mmol/L (21-32); Glucose Level 133 mg/dL (74-106); Magnesium 2.2 mg/dL (1.8-2.4); Potassium 3.4 mmol/L (3.5-5.1); Prealbumin 8.4 mg/dL (20-40); Sodium Level 141 mmol/L (136-145)
[2020-04-24] MEDS: FERROUS SULFATE 325 MG TAB PO SCH (08:35)
[2020-04-24] MEDS: FE SULF/FA/VIT B COMP & C TAB PO SCH (08:35)
[2020-04-24] MEDS: ASPIRIN EC 81 MG TAB PO SCH (08:35)
[2020-04-24] MEDS: LOSARTAN POTASSIUM 50 MG TABLET PO SCH (08:35)
[2020-04-24] MEDS: VITAMIN E 400 IU CAP PO SCH (08:35)
[2020-04-24] MEDS: METOPROLOL XL 50 MG TAB PO SCH (08:36)
[2020-04-24] MEDS: PROMOD 30 ML DOSE PO SCH (12:31)
[2020-04-24] MEDS ORDERED: POTASSIUM CL SA 10 MEQ TAB PO ONE (14:57)
[2020-04-24] MEDS: ENOXAPARIN 40 MG/0.4 ML SQ SCH (17:19)
--- NOTE | 2020-04-24 17:43 | R.HP ---
HISTORY AND PHYSICAL FACILITY: [facility] ENCOUNTER DATE AND TIME: 04/24/2020 17:36 (CDT) MR#: [id number] NAME LYDIA ALVAREZ ADDRESS: [address] [place] [address]: [place] [id number] PHONE: DATE OF : 1935 AGE: 84 SSN# [id number] GENDER: Female DEXTERITY Right-handed MARITAL STATUS RACE White PRE-HOSPITAL LIVING SETTING 01 - Home (private home/apt. board/care, assisted living, jail, transitional living) PRE-HOSPITAL LIVING WITH Alone ENCOUNTER PHYSICIAN: Dr. Wes Chance M.D. REFERRING DOCTOR: Dr Garcia DATE OF ADMISSION: 04/23/2020 16:32 (CDT) REFERRING FACILITY Doctor Office HOME TYPE AND DETAILS: Type of home: 2 [address] Home # of levels in the residence: 3 # of steps to enter the residence: 2 # of steps within the residence: 12 Pt. lives alone, she lost her son in October. She lives in a 2 1/2 chris home, has 2 steps to enter her home, no rails. Her bedroom is downstairs, she rarely goes upstairs. She has a tub w/ overhead s hower, has a shower chair available if needed, No other assistive device or DME available. ONSET DATE: 04/19/2020 PRIMARY DIAGNOSIS-RELATED SURGERIES: Emergency Left hip bipolar hemiarthroplasty using a cemented Biomet fracture stem - performed by DR COLUNGA on HISTORY OF PRESENT ILLNESS (HPI): Pt. is a 84 yo Right-handed white female. On 04/19/2020 [address] [facility] and underwent emergency surgery for Left hip displaced femoral neck fracture (Left hip bipolar hemiarthroplasty using a cemented Biomet fracture stem) by DR COLUNGA. Pre-morbidly, Pt. was independent/mod-I in Transfers Control, Self-Care, and Locomotion; and she had good Balance, Safety Awareness, Social Cognition, Sphincter Control, and Communication. Currently, she has deficits of Transfers Control, Locomotion, Balance, Safety Awareness, and Self-Car e. Pt. is now referred to [facility] for acute in-patient rehabilitation in order to maximize patient's functional independence in activities of daily living, strength, ROM, and mobi lity. Patient has realistic goal of being discharged at assistance level 6-Jesenia to reside at Home with Fam fredo/Relatives. Patient is a very independent female that lives at home alone in a 2.5 story home. She was working i n the yard when she tripped over the watering hose and broke her hip. It is reasonable and necessary for her to come to rehab to return to her prior level of living. MEDICATION ALLERGIES: Regadenoson Contrast Allergy ENVIRONMENTAL ALLERGIES: None Known - Substance Allergies None Known - Other Allergies Allergy to CONTRAST PAST MEDICAL HISTORY: HTN CAD HLD PAST SURGICAL HISTORY: Double Bypass APPENDECTOMY R Hand Sx SOCIAL HISTORY: - Home Living Alone REVIEW OF SYSTEMS: - Gen No Chills Fatigue No Fever - Eyes No Double Vision No itchiness - ENMT No Difficulty Swallowing - CVS No Chest Discomfort No Chest Pain Fatigue No Weight Gain - Resp No Cough No Shortness of Breath - GI Continent No Abdominal Pain No Constipation No Diarrhea - Continent No Kidney Pain No Painful Urination No Urinary Urgency - MSK No Joint Pain Muscle Cramps No Stiffness - Skin No Itching No Rash No Suspicious Lesions - Neuro Coordination Difficulty No Difficulty with Concentration No Memory Loss No Seizures Weakness - Psych No Anxiety No Depression No HIV Exposure No Persistent Infections No Seasonal Allergies - Endo No Cold/Heat Intolerance No Excessive Hunger No Excessive Thirst No Excessive Urination PHYSICAL EXAM - Gen Alert and awake Lying in bed No apparent distress Oriented to: person, time, and place - Skin Left hip incision intact and without bleeding. Normacephalic - Eyes No abnormalities - ENMT No abnormalities - Neck No abnormalities - CVS RRR - Chest No abnormalities - Resp Clear to auscultation - Abd Soft - GI Non distended Deferred - No abnormalities - Ext Mild left lower extremity edema. - MSK 4+/5 weakness in left lower extremity - Neuro 4/5 strength left lower extremity. - Psych No abnormalities VITAL SIGNS Temperature: 97.2 F SBP/DBP: 164/71 Pulse: 89 Resp: 16 NURSING: - Shower allowing shower - Skin care per protocol PRECAUTIONS: - Posterior Hip Precaution No adduction across midline No external rotation No hip flexion >90 degrees No internal rotation - Weight Bearing Precaution WBAT left LE ACTIVITIES OOB only with supervision QI SCORES: - Self-Care A. Eating 05-Setup or clean-up assistance B. Oral hygiene 04-Supervision or touching assistance C. Toileting hygiene 02-Substantial/maximal assistance E. Shower/bathe self 88-Not attempted due to medical condition or safety concerns F. Upper body dressing 10-Not attempted due to environmental limitations G. Lower body dressing 88-Not attempted due to medical condition or safety concerns H. Putting on/taking off footwear 88-Not attempted due to medical condition or safety concerns - Mobility A. Roll left and right 03-Partial/moderate assistance B. Sit to lying 02-Substantial/maximal assistance C. Lying to sitting on side of bed 02-Substantial/maximal assistance D. Sit to stand 02-Substantial/maximal assistance E. Chair/wmo-yx-retvk transfer 02-Substantial/maximal assistance F. Toilet transfer 02-Substantial/maximal assistance G. Car transfer 10-Not attempted due to environmental limitations I. Walk 10 feet 88-Not attempted due to medical condition or safety concerns J. Walk 50 feet with two turns 88-Not attempted due to medical condition or safety concerns K. Walk 150 feet 88-Not attempted due to medical condition or safety concerns L. Walking 10 feet on uneven surfaces 88-Not attempted due to medical condition or safety concerns M. 1 step (curb) 88-Not attempted due to medical condition or safety concerns N. 4 steps 88-Not attempted due to medical condition or safety concerns O. 12 steps 88-Not attempted due to medical condition or safety concerns P. Picking up object 88-Not attempted due to medical condition or safety concerns - Bladder and Bowel Bladder continence 1-Stress incontinence only Bowel continence 0-Always continent - Endurance Poor - Balance Poor - Safety Awareness Poor CURRENT FUNC. DEFICITS: Self-Care, Mobility, Endurance, Balance, and Safety Awareness MEDICATIONS: - Other See attached MAR (Medication Administration Record) ASSESSMENT: Pt. is a 84 yo Right-handed white female.On 04/19/2020 she was admitted to [facility] emergency surgery for Left hip displaced femoral neck fracture (Left hip bipolar hemiarthroplasty using a cemented Biomet fracture stem) by DR COLUNGA.Pre-morbidly, Pt. was independent/mod-I in Transfers Control, Self-Care, and Locomotion; and she had good Balance, Saf ety Awareness, Social Cognition, Sphincter Control, and Communication.Currently, she has deficits of Transfers Control, Locomotion, Balance, Safety Awareness, and Self-Care.Pt. is now referred to [facility] for acute in-patient rehabilitation in order to maximize patient's functi onal independence in activities of daily living, strength, ROM, and mobility.- Rehab Goal Patient has realistic goal of being discharged at assistance level 6-Jesenia to reside at Home with Fam fredo/Relatives. Patient is a very independent female that lives at home alone in a 2.5 story home. She was working i n the yard when she tripped over the watering hose and broke her hip. It is reasonable and necessary for her to come to rehab to return to her prior level of living.REHAB PLAN: - Physical Therapy Decreased range of motion - to improve, our physical therapists will perform initial evaluation of pt 's status upon admission and devise an individualized program for increasing patient's Range of Motio n. Gait dysfunction - to improve, our physical therapists will perform initial evaluation of pt's status upon admission and devise an individualized program for Gait Training, and Wheel Chair mobility Inability to transfer - to improve, our physical therapists will perform initial evaluation of pt's s tatus upon admission and devise an individualized program for Bed mobility Need for home safety evaluation - to improve, our physical therapists will perform initial evaluation of pt's status upon admission and devise an individualized program for Home Evaluation Need in caregiver upon discharge - to improve, our physical therapists will perform initial evaluatio n of pt's status upon admission and devise an individualized program for Caregiver Training Edema - to improve, our physical therapists will perform initial evaluation of pt's status upon admi ssion and devise an individualized program for Elevation Training, and Lymphedema Therapy New precaution - to improve, our physical therapists will perform initial evaluation of pt's status u rey admission and devise an individualized program for Patient precaution education Poor balance - to improve, our physical therapists will perform initial evaluation of pt's status upo n admission and devise an individualized program for Balance Training Weakness - to improve, our physical therapists will perform initial evaluation of pt's status upon ad mission and devise an individualized program for Aquatic Therapy, Neuromuscular Reeducation, and Stre ngthening Achieving independence - to improve, our physical therapists will perform initial evaluation of pt's status upon admission and devise an individualized program for Community Reintegration Activities - Occupational Therapy ADL deficits - to improve, our occupation therapists will perform initial evaluation of pt's status u rey admission and devise an individualized program for Bathing, Bed mobility, Community Reintegration , Cooking, Dressing, Eating, Fine Motor Skills, Grooming, Homemaking, Kitchen Mobility, Laundry, Stefanie ent Education, Safety Awareness, Splinting - Positioning, Transfers(Toilet, Tub, Shower), and Wheel C hair Management Need for field care manager - to improve, our occupation therapists will perform initial evaluation of pt's s tatus upon admission and devise an individualized program for Caregiver Training Weakness - to improve, our occupation therapists will perform initial evaluation of pt's status upon admission and devise an individualized program for Aquatic Therapy, Balance, Endurance, UE ROM, and U E strengthening MEDICAL PLAN: - Anterior Hip Precaution No abduction No active extension No adduction across midline No external rotation No hip flexion >90 degrees No internal rotation - Diet - Liquid Texture Start Regular - Tube Feed Start N/A - Diet Type Start Regular - Posterior Hip Precaution No adduction across midline No external rotation No hip flexion >90 degrees No internal rotation No wheel chair propulsion - Weight Bearing Precaution WBAT left LE - Skin care per protocol - Other See attached MAR (Medication Administration Record) - Diet - Solid Texture Regular - Shower shower DISCHARGE PLAN: - Estimated Length of Stay (days) 14. - Consensus on plan Discharge plan has been discussed with primary caregiver. Patient/Family is in agreement with the concetta n. Primary caregiver is in agreement with the plan. - Patient/Family Goals Return home with assistance. - Planned Living Setting Upon Discharge Home, to live alone. SIGNATURE PANEL: (CDT)
--- NOTE | 2020-04-24 17:45 | PAPE ---
POST ADMISSION PHYSICIAN EVALUATION PATIENT: [facility] MR# [id number] REFERRING DOCTOR Dr Garcia EVALUATION DATE AND TIME 04/24/2020 17:43 (CDT) NAME LYDIA ALVAREZ DATE OF 1935 AGE 84 PHONE SSN# [id number] GENDER female EVALUATING PHYSICIAN Dr. Wes Chance M.D. ADMISSION DIAGNOSIS: Left hip displaced femoral neck fracture ONSET DATE 04/19/2020 POST-ADMISSION FUNCTIONAL/MEDICAL STATUS: - Walking Same score based on distance walked: 0(N/A) - Wheelchair Same STATUS CHANGE EVALUATION: No change in Functional or Medical Status is identified compared with Pre-Admission screening. PATIENT NEEDS CLOSE MEDICAL SUPERVISION BY A REHABILITATION PHYSICIAN FOR: Coordination of Treatment Team Post-Op Complications Wound Care PATIENT REQUIRES 24X7 REHAB NURSING FOR MEDICAL AND FUNCTIONAL MGT. OF THE FOLLOWING DEFICITS: Disease Management Medication Management Patient/Family Education Providing Safe Environment Skin Integrity PATIENT REQUIRES INTENSIVE, COORDINATED INTERDISCIPLINARY APPROACH TO REHAB: Arranging Home Equipment/Services Discharge Planning Family Intervention/Training Manager Change/Case Management LIST OF IDENTIFIED AND POTENTIAL PROBLEMS: Alteration in leisure activities Infection, Actual or Potential Mobility Impaired Pain, Alteration in Comfort Self Care Deficit Skin Integrity, Actual or Potential Urinary Tract Infection (UTI), Actual or Potential INTERVENTIONS - CAD Medications. Activity management. VS. 02 sats. - Hypertension - DVT/PE Activity management. Monitor for extension. ABG's. Labs. 02 sats. Medications. Limb elevation/fly clemente. PATIENT COULD BE AT RISK FOR COMPLICATIONS FROM ADVERSE MEDICAL CONDITIONS DUE TO HIS/HER COMORBIDITI ES AND THE RIGORS OF THE INTENSIVE REHABILLITATION PROGRAM. METHODS OR INTERVENTIONS TO AVOID COMPLIC ATIONS INCLUDE: - Bleeding Assess lab values and manage abnormalities. Nursing to teach precautions for anti-coagulation therapy . Wound to be assessed every shift. - Infection Clinical staff to assess and manage the signs and symptoms of infection including fever, redness, war mth, etc. - Urinary Tract Infection - Falls Patient will be evaluated for Fall Precautions and will be placed on Fall Precautions as indicated pe r protocol. - Skin Breakdown Nursing will assess skin daily using assessment tool and will place on Skin Breakdown Precautions as indicated per protocol. - Pain Clinical staff may employ non-medication methods such as massage, distraction, decrease stimulus, etc . as needed. Clinical staff will assess patient's pain level every shift per protocol to assess and e nsure pain management effectiveness. Medications will be given and the pain level re-assessed. PRELIMINARY PLAN OF CARE: - Physical Therapy Patient needs Physical Therapy for a daily minimum of 1.5 hours at least 5 out of 7 days, to improve: Mobility, Strengthening, Transfers, Stretching, ROM, Endurance, Ability to manage stairs, Gait, and Balance. - Speech Therapy Patient needs Speech Therapy for a daily minimum of 0.5 hours at least 5 out of 7 days, to improve: S wallowing, Cognition, Language Skills, and Compensatory Strategies. - Rehabilitation Nursing Patient requires 24x7 Rehabilitation Nursing for: Pain Issues, Identifying and preventing risk factor s, Monitoring and reporting current medical conditions, Assisting with ambulation and transfer, Mikel ting with all ADL-s, Teaching patients about disease process and medications, Family teaching, Provid ing safe environment, Bowel and Bladder Issues, Skin Integrity, and Medication Management. Patient needs Manager Change and/or Case Management for: Discharge Planning, Arranging Home Equipmen t or Services, and Family Interventions. - Dietary and Nutrition Services Patient needs Dietary and Nutrition Services for: Adequate Nutrition, Nutritional Supplements, and Nu tritional Education. - Occupational Therapy Patient needs Occupational Therapy for a daily minimum of 1.5 hours at least 5 out of 7 days, to impr ove Activities of Daily Living, including: Eating, Grooming, Bathing, Dressing, Toileting, Toilet Tra nsfers, Community Reintegration, Higher functional activities, Adaptive Equipment, Splinting, Househo ld Tasks, and Other activities as determined. QI SCORES: - Self-Care A. Eating 05-Setup or clean-up assistance B. Oral hygiene 04-Supervision or touching assistance C. Toileting hygiene 02-Substantial/maximal assistance E. Shower/bathe self 88-Not attempted due to medical condition or safety concerns F. Upper body dressing 10-Not attempted due to environmental limitations G. Lower body dressing 88-Not attempted due to medical condition or safety concerns H. Putting on/taking off footwear 88-Not attempted due to medical condition or safety concerns - Mobility A. Roll left and right 03-Partial/moderate assistance B. Sit to lying 02-Substantial/maximal assistance C. Lying to sitting on side of bed 02-Substantial/maximal assistance D. Sit to stand 02-Substantial/maximal assistance E. Chair/grd-qi-roscm transfer 02-Substantial/maximal assistance F. Toilet transfer 02-Substantial/maximal assistance G. Car transfer 10-Not attempted due to environmental limitations I. Walk 10 feet 88-Not attempted due to medical condition or safety concerns J. Walk 50 feet with two turns 88-Not attempted due to medical condition or safety concerns K. Walk 150 feet 88-Not attempted due to medical condition or safety concerns L. Walking 10 feet on uneven surfaces 88-Not attempted due to medical condition or safety concerns M. 1 step (curb) 88-Not attempted due to medical condition or safety concerns N. 4 steps 88-Not attempted due to medical condition or safety concerns O. 12 steps 88-Not attempted due to medical condition or safety concerns P. Picking up object 88-Not attempted due to medical condition or safety concerns - Bladder and Bowel Bladder continence 1-Stress incontinence only Bowel continence 0-Always continent - Endurance Poor - Balance Poor - Safety Awareness Poor POTENTIAL FUNCTIONAL GOALS FOR PATIENT TO ACHIEVE BY DISCHARGE: - Safety Precaution Patient will remain free from falls or injury at time of discharge. - Bed Mobility Patient will perform bed mobility at 4-Livier level of assistance. - Transfers Patient will complete transfers from bed to chair at 4-Livier level of assistance. - Mobility Patient will ambulate 150 ft with 4-Livier level of assistance with RW. PATIENT REHAB POTENTIAL Zuleyma ALVAREZ is able and expected to receive 3 hours of individualized therapy daily on at least 5 of e very 7 days Zuleyma ALVAREZ's prognosis for significant practical improvement within a reasonable period of time appea rs Good Expected level of measurable improvement will be of a practical value to Zuleyma ALVAREZ's functional capa city or adaptations to impairments Has a viable Discharge Plan Medically appropriate; condition is sufficiently stable to participate in intensive rehab program DISCHARGE PLAN: - Estimated Length of Stay (days) 14. - Consensus on plan Discharge plan has been discussed with primary caregiver. Patient/Family is in agreement with the concetta n. Primary caregiver is in agreement with the plan. - Patient/Family Goals Return home with assistance. - Planned Living Setting Upon Discharge Home, to live alone. CONCLUSION ON REHABILITATION NECESSITY: I have evaluated patient's pre-admission functional status and, comparing it to the patient's post-ad mission functional status now, I conclude that the pre-admission assessment was accurate. Patient's c ondition on admission supports the medical necessity of admission to IR[facility]. It is safe to proceed with patient's therapy program. SIGNATURE PANEL: (CDT)
[2020-04-24] MEDS: GABAPENTIN 300 MG CAP PO SCH (19:49)
[2020-04-24] MEDS: ENSURE HIGH PROTEIN 237 ML CAN PO SCH (19:49)
[2020-04-24] MEDS: MAGNESIUM OXIDE 400 MG TAB PO SCH (19:49)
[2020-04-24] MEDS: MELATONIN 3 MG TABLET PO PRN (20:13)
[2020-04-24] MEDS: ATORVASTATIN 40 MG TAB PO SCH (20:13)
[2020-04-25] MEDS: METOPROLOL XL 50 MG TAB PO SCH (07:22)
[2020-04-25] MEDS: LOSARTAN POTASSIUM 50 MG TABLET PO SCH (07:22)
[2020-04-25] MEDS: ENSURE HIGH PROTEIN 237 ML CAN PO SCH ×2 (07:25→19:25)
[2020-04-25] MEDS: TRAMADOL HCL 50 MG TAB PO PRN ×2 (07:39→14:14)
[2020-04-25] MEDS: VITAMIN E 400 IU CAP PO SCH (07:41)
[2020-04-25] MEDS: MAGNESIUM OXIDE 400 MG TAB PO SCH ×2 (07:41→19:25)
[2020-04-25] MEDS: ASPIRIN EC 81 MG TAB PO SCH (07:42)
[2020-04-25] MEDS: FE SULF/FA/VIT B COMP & C TAB PO SCH (07:42)
[2020-04-25] MEDS: FERROUS SULFATE 325 MG TAB PO SCH (07:42)
[2020-04-25] MEDS: GABAPENTIN 300 MG CAP PO SCH ×2 (07:42→19:25)
--- NOTE | 2020-04-25 09:42 | P.RH.PN ---
Estimated Length of Stay: 10 Expected Discharge Date: 05/02/20 Discharge Disposition Plan: Home Family Support: Yes Intermediate Goal: Mobility, Transfers, Self Care Vital Signs: Last Vital Signs Temp 97.2 F 04/25/20 08:03 Pulse 96 H 04/25/20 08:03 Resp 15 04/25/20 08:39 BP 123/89 04/25/20 08:41 Pulse Ox 94 04/25/20 08:39 Laboratory: Laboratory Last Values WBC 6.5 K/uL (4.3-10.9) D 04/24/20 05:40 RBC 2.65 M/uL (3.86-4.86) L 04/24/20 05:40 Hgb 8.7 g/dL (12.0-15.0) L 04/24/20 05:40 Hct 24.6 % (36.0-45.0) L 04/24/20 05:40 MCV 92.7 fL (80-100) 04/24/20 05:40 MCH 32.8 pg (27.0-35.0) 04/24/20 05:40 MCHC 35.5 g/dL (32.0-36.0) 04/24/20 05:40 RDW 13.0 % (12.1-15.2) 04/24/20 05:40 Plt Count 145 K/uL (152-406) L 04/24/20 05:40 MPV 7.7 fL (7.6-11.3) 04/24/20 05:40 Neutrophils % 67.9 % (41.7-73.7) 04/24/20 05:40 Lymphocytes % 17.2 % (15.3-44.8) 04/24/20 05:40 Monocytes % 9.4 % (3.3-12.3) 04/24/20 05:40 Eosinophils % 4.8 % (0-4.4) H 04/24/20 05:40 Basophils % 0.7 % (0-1.3) 04/24/20 05:40 Absolute Neutrophils 4.4 K/uL (1.8-8.0) 04/24/20 05:40 Absolute Lymphocytes 1.1 K/uL (0.7-4.9) 04/24/20 05:40 Absolute Monocytes 0.6 K/uL (0.1-1.3) 04/24/20 05:40 Absolute Eosinophils 0.3 K/uL (0-0.5) 04/24/20 05:40 Absolute Basophils 0.0 K/uL (0-0.5) 04/24/20 05:40 Sodium 141 mmol/L (136-145) 04/24/20 05:40 Potassium 3.4 mmol/L (3.5-5.1) L 04/24/20 05:40 Chloride 108 mmol/L (98-107) H 04/24/20 05:40 Carbon Dioxide 28 mmol/L (21-32) 04/24/20 05:40 BUN 11 mg/dL (7-18) 04/24/20 05:40 Creatinine 0.57 mg/dL (0.55-1.3) 04/24/20 05:40 Estimated GFR > 90 mL/min (=/>90) 04/24/20 05:40 Glucose 133 mg/dL (74-106) H 04/24/20 05:40 Calcium 7.8 mg/dL (8.5-10.1) L 04/24/20 05:40 Magnesium 2.2 mg/dL (1.8-2.4) 04/24/20 05:40 Albumin 2.3 g/dL (3.4-5.0) L D 04/24/20 05:40 Prealbumin 8.4 mg/dL (20-40) L 04/24/20 05:40 Urine Color Yellow 04/23/20 23:00 Urine Appearance Clear 04/23/20 23:00 Urine pH 7.0 (5.0-7.0) 04/23/20 23:00 Ur Specific [place] <=1.005 (1.005-1.030) 04/23/20 23:00 Glucose (UA)(Auto) Negative (NEG) 04/23/20 23:00 Urine Ketones Negative (NEG) 04/23/20 23:00 Urine Blood Trace (NEG) H 04/23/20 23:00 Urine Nitrite Negative (NEG) 04/23/20 23:00 Urine Bilirubin Negative (NEG) 04/23/20 23:00 Urine Urobilinogen 1.0 mg/dL (0.2-1.0) 04/23/20 23:00 Ur Leukocyte Esterase Trace (NEG) H 04/23/20 23:00 Urine RBC <5 /HPF (NONE SEEN) 04/23/20 23:00 Urine WBC <5 /HPF (<5) 04/23/20 23:00 Ur Squamous Epith Cells SNOW REMOVER 04/23/20 23:00 Ur Urothelial Cells <5 /HPF (NONE SEEN) 04/23/20 23:00 Urine Bacteria <20 /HPF (<20) 04/23/20 23:00 Urine Culture Reflexed Reflexed 04/23/20 23:00 Urine Total Protein Negative (NEG) 04/23/20 23:00 Weight: 169 lb Wound Present: No Closed Surgical Incision Present: Yes Negative Pressure Wound Therapy Present: No Physician Update: Her prealbumin is 8.4. She is on ensure plus and will start promod. She is at standby assistance with ADLs and ambulation. She reports transient in the right hand on awakening. Functional Improvement: pt present with moderate strength deficits on the L LE as a result of recent fx. pt is highly motivated and determined to return to [facility]. pt demonstrates reduced balance and stability during ambulation and functional transfers. pt exhibits safety concerns regarding new hip precautions. pt demonstrates a reduced tolerance to functional activity due to pain and weakness. Skilled PT services are necessary to address the above mentioned impairments and functional limitations. 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 Please see the Rehabilitation Signature page for all necessary signatures.
[2020-04-25] MEDS: LIDOCAINE 4% PATCH TOP SCH (16:25)
[2020-04-25] MEDS: ENOXAPARIN 40 MG/0.4 ML SQ SCH (16:26)
--- NOTE | 2020-04-25 17:00 | FAST ---
[employer] FORM SHIFT START DATE/TIME: 04/25/2020 07:00 (CDT) SHIFT END DATE/TIME: 04/25/2020 19:00 (CDT) NAME LYDIA ALVAREZ DATE OF : 1935 DATE OF ADMISSION: 04/23/2020 16:32 (CDT) PHONE: AGE: 84 SSN# [id number] GENDER: Female ENCOUNTER PHYSICIAN: Dr. Wes Chance M.D. ADMISSION DIAGNOSIS: - Orthopaedic Disorders 08 - Unilateral Hip Fracture (08.11) Left hip displaced femoral neck fracture. EATING: EATING - STEP 1: Does the patient complete the activity by him/herself with no assistance (physical, verbal/nonverbal cueing, setup/clean-up)? No. EATING - STEP 2: Does the patient need only setup/clean-up assistance from one helper? No. EATING - STEP 3: Does the patient need only verbal/nonverbal cueing or touching/steadying/contact guard assistance fro m one helper? Yes. 1. [id number] ADMISSION PERFORMANCE: Supervision or touching assistance CODE: 04 ORAL HYGIENE: ORAL HYGIENE - STEP 1: Does the patient complete the activity by him/herself with no assistance (physical, verbal/nonverbal cueing, setup/clean-up)? No. ORAL HYGIENE - STEP 2: Does the patient need only setup/clean-up assistance from one helper? No. ORAL HYGIENE - STEP 3: Does the patient need only verbal/nonverbal cueing or touching/steadying/contact guard assistance fro m one helper? Yes. 1. [id number] ADMISSION PERFORMANCE: Supervision or touching assistance CODE: 04 TOILETING HYGIENE: TOILETING HYGIENE - STEP 1: Does the patient complete the activity by him/herself with no assistance (physical, verbal/nonverbal cueing, setup/clean-up)? No. TOILETING HYGIENE - STEP 2: Does the patient need only setup/clean-up assistance from one helper? No. TOILETING HYGIENE - STEP 3: Does the patient need only verbal/nonverbal cueing or touching/steadying/contact guard assistance fro m one helper? No. TOILETING HYGIENE - STEP 4: Does the patient need physical assistance - for example lifting or trunk support from one helper - wi th the helper providing less than half of the effort? Yes. 1. [id number] ADMISSION PERFORMANCE: Partial/moderate assistance CODE: 03 BATHING: SHOWER/BATHE SELF - STEP 1: Does the patient complete the activity by him/herself with no assistance (physical, verbal/nonverbal cueing, setup/clean-up)? No. SHOWER/BATHE SELF - STEP 2: Does the patient need only setup/clean-up assistance from one helper? No. SHOWER/BATHE SELF - STEP 3: Does the patient need only verbal/nonverbal cueing or touching/steadying/contact guard assistance fro m one helper? No. SHOWER/BATHE SELF - STEP 4: Does the patient need physical assistance - for example lifting or trunk support from one helper - wi th the helper providing less than half of the effort? Yes. 1. [id number] ADMISSION PERFORMANCE: Partial/moderate assistance CODE: 03 DRESSING - UPPER BODY: DRESSING - UPPER BODY - STEP 1: Does the patient complete the activity by him/herself with no assistance (physical, verbal/nonverbal cueing, setup/clean-up)? No. DRESSING - UPPER BODY - STEP 2: Does the patient need only setup/clean-up assistance from one helper? No. DRESSING - UPPER BODY - STEP 3: Does the patient need only verbal/nonverbal cueing or touching/steadying/contact guard assistance fro m one helper? No. DRESSING - UPPER BODY - STEP 4: Does the patient need physical assistance - for example lifting or trunk support from one helper - wi th the helper providing less than half of the effort? Yes. 1. [id number] ADMISSION PERFORMANCE: Partial/moderate assistance CODE: 03 DRESSING - LOWER BODY: Not assessed/no information CODE: - PUTTING ON/TAKING OFF FOOTWEAR: Not assessed/no information CODE: - ROLL LEFT AND RIGHT: Not assessed/no information CODE: - LYING TO SITTING: Not assessed/no information CODE: - SIT TO STAND: Not assessed/no information CODE: - TRANSFERS: BED, CHAIR: Not assessed/no information CODE: - TRANSFER TOILET: TOILET TRANSFER - STEP 1: Does the patient complete the activity by him/herself with no assistance (physical, verbal/nonverbal cueing, setup/clean-up)? No. TOILET TRANSFER - STEP 2: Does the patient need only setup/clean-up assistance from one helper? No. TOILET TRANSFER - STEP 3: Does the patient need only verbal/nonverbal cueing or touching/steadying/contact guard assistance fro m one helper? Yes. 1. [id number] ADMISSION PERFORMANCE: Supervision or touching assistance CODE: 04 TRANSFERS: CAR: Not assessed/no information CODE: - WALK 10 FEET: Not assessed/no information CODE: - 1 STEP (CURB): Not assessed/no information CODE: - PICKING UP OBJECT: Not assessed/no information CODE: - DOES THE PATIENT USE A WHEELCHAIR/SCOOTER? CODE: EXPR WHEEL 50 FEET WITH TWO TURNS: Not assessed/no information CODE: - INDICATE THE TYPE OF WHEELCHAIR/SCOOTER USED: CODE: EXPR WHEEL 150 FEET: Not assessed/no information CODE: - INDICATE THE TYPE OF WHEELCHAIR/SCOOTER USED: CODE: EXPR BLADDER AND BOWEL: H350. BLADDER CONTINENCE (3-DAY ASSESSMENT PERIOD): Always continent (no documented incontinence) CODE: 0 H400. BOWEL CONTINENCE (3-DAY ASSESSMENT PERIOD): Always continent CODE: 0 SIGNATURE PANEL: The following modified sections: 1. [id number] Admission Performance, 1. [id number] Admission Performance, 1. [id number] Admission Performance, 1. [id number] Admission Performance, 1. [id number] Admission Performance, 1. [id number] Admission Performance, Code, H350. Bladder Continence (3-day assessment period), H400. Memo wel Continence (3-day assessment period) were [electronically] signed by Yahir Subramanian on TueApr 25 202 0 16:59:41 GMT-0500 (Central Daylight Time)
[2020-04-25] MEDS: PROMOD 30 ML DOSE PO SCH (19:25)
[2020-04-25] MEDS: DOCUSATE NA/SENNA CONC 1 TAB PO PRN (19:25)
[2020-04-25] MEDS: ATORVASTATIN 40 MG TAB PO SCH (20:04)
[2020-04-25] MEDS: MELATONIN 3 MG TABLET PO PRN (21:01)
[2020-04-26 06:50] LABS: Absolute Lymphocytes (CBC) 1.8 K/uL (0.7-4.9); Basophils % 0.9 % (0-1.3); Lymphocytes % 27.7 % (15.3-44.8); MPV 7.8 fL (7.6-11.3); RBC Red Blood Cell Count 2.98 M/uL (3.86-4.86)
[2020-04-26 06:55] LABS: BUN Blood Urea Nitrogen 11 mg/dL (7-18); Bicarbonate 29 mmol/L (21-32); Glucose Level 92 mg/dL (74-106); Potassium 3.7 mmol/L (3.5-5.1); Sodium Level 143 mmol/L (136-145)
[2020-04-26] MEDS: TRAMADOL HCL 50 MG TAB PO PRN ×3 (07:00→19:57)
--- NOTE | 2020-04-26 07:12 | P.PN ---
Subjective Date of Service: 04/25/20 Chief Complaint: HIP FRACTURE Subjective: Improving LYDIA HAS ALREADY STARTED TO WALK WELL EVEN IN PAIN. Review of Systems 10-point ROS is otherwise unremarkable Physical Examination - Vital Signs Temperature: 98.8 F Blood Pressure: 169/66 Pulse: 88 Respirations: 16 Pulse Ox (%): 94 - Physical Exam General: Alert, In no apparent distress HEENT: Atraumatic, PERRLA, EOMI Neck: Supple, JVD not distended Respiratory: Clear to auscultation bilaterally, Normal air movement Cardiovascular: Regular rate/rhythm, Normal S1 S2 Gastrointestinal: Normal bowel sounds, No tenderness Musculoskeletal: Tenderness Integumentary: No rashes Neurological: Normal speech, Normal tone, Normal affect Lymphatics: No axilla or inguinal lymphadenopathy - Studies Laboratory Data (last 24 hrs) 04/26/20 06:22: Sodium 143, Potassium 3.7, BUN 11, Creatinine 0.54 L, Glucose 92 04/26/20 06:22: WBC 6.4, Hgb 9.6 L, Hct 28.0 L, Plt Count 216 D Medications List Reviewed: Yes Assessment And Plan - Current Problems (Diagnosis) (1) HTN (hypertension) Current Visit: Yes Status: Chronic Plan: FLUCTUATES WILL WATCH Qualifiers: Hypertension type: essential hypertension Qualified Code(s): I10 - Essential (primary) hypertension (2) Subcapital fracture of left hip Current Visit: No Status: Acute Plan: L SIDE. CONTINUE PT ANEMIA FROM LOVENOX, POST OP WILL WATCH. Qualifiers: Encounter type: subsequent encounter Fracture type: closed Fracture healing: with routine healing Qualified Code(s): S72.012D - Unspecified intracapsular fracture of left femur, subsequent encounter for closed fracture with routine healing (3) History of coronary artery disease Current Visit: No Status: Chronic Plan: NO ACUTE SS.
[2020-04-26] MEDS: ENSURE HIGH PROTEIN 237 ML CAN PO SCH ×2 (08:00→19:48)
[2020-04-26] MEDS: MAGNESIUM OXIDE 400 MG TAB PO SCH ×2 (08:50→19:47)
[2020-04-26] MEDS: VITAMIN E 400 IU CAP PO SCH (08:50)
[2020-04-26] MEDS: GABAPENTIN 300 MG CAP PO SCH ×2 (08:50→19:47)
[2020-04-26] MEDS: FE SULF/FA/VIT B COMP & C TAB PO SCH (08:51)
[2020-04-26] MEDS: ASPIRIN EC 81 MG TAB PO SCH (08:51)
[2020-04-26] MEDS: METOPROLOL XL 50 MG TAB PO SCH (08:51)
[2020-04-26] MEDS: FERROUS SULFATE 325 MG TAB PO SCH (08:51)
[2020-04-26] MEDS: LIDOCAINE 4% PATCH TOP SCH (08:52)
[2020-04-26] MEDS: LOSARTAN POTASSIUM 50 MG TABLET PO SCH (08:52)
[2020-04-26] MEDS: PROMOD 30 ML DOSE PO SCH ×2 (08:56→19:48)
--- NOTE | 2020-04-26 11:49 | P.PN ---
Subjective Date of Service: 04/26/20 Chief Complaint: HIP FRACTURE Subjective: Improving LYDIA HAS ALREADY STARTED TO WALK WELL EVEN IN PAIN. LYDIA IS DOING GREAT. SHE HAS SOME PAIN BUT HER TOLERANCE IS GOOD. SHE IS SOMEWHAT DEPRESSED FROM SON'S BY SUICIDE RELATED TO LIVER CANCER. Physical Examination - Vital Signs Temperature: 98.8 F Blood Pressure: 169/66 Pulse: 88 Respirations: 16 Pulse Ox (%): 94 - Studies Laboratory Data (last 24 hrs) 04/26/20 06:22: Sodium 143, Potassium 3.7, BUN 11, Creatinine 0.54 L, Glucose 92 04/26/20 06:22: WBC 6.4, Hgb 9.6 L, Hct 28.0 L, Plt Count 216 D Microbiology Data (last 24 hrs): 04/23/20 23:00 Clean Catch Urine [place] Count - Final <10,000 CFU/ML. 04/23/20 23:00 Clean Catch Urine - Final MIXED CARLOS. Medications List Reviewed: Yes Assessment And Plan - Current Problems (Diagnosis) (1) HTN (hypertension) Current Visit: Yes Status: Chronic Plan: FLUCTUATES WILL WATCH Qualifiers: Hypertension type: essential hypertension Qualified Code(s): I10 - Essential (primary) hypertension (2) Subcapital fracture of left hip Current Visit: No Status: Acute Plan: L SIDE. CONTINUE PT ANEMIA FROM LOVENOX, POST OP WILL WATCH. Qualifiers: Encounter type: subsequent encounter Fracture type: closed Fracture healing: with routine healing Qualified Code(s): S72.012D - Unspecified intracapsular fracture of left femur, subsequent encounter for closed fracture with routine healing (3) History of coronary artery disease Current Visit: No Status: Chronic Plan: NO ACUTE SS.
[2020-04-26] MEDS: ENOXAPARIN 40 MG/0.4 ML SQ SCH (16:59)
[2020-04-26] MEDS: MELATONIN 3 MG TABLET PO PRN (19:47)
[2020-04-26] MEDS: ATORVASTATIN 40 MG TAB PO SCH (19:47)
[2020-04-27 06:46] LABS: Basophils % 1.1 % (0-1.3); Hematocrit 27.7 % (36.0-45.0); Lymphocytes % 29.3 % (15.3-44.8); MPV 7.5 fL (7.6-11.3); RBC Red Blood Cell Count 2.93 M/uL (3.86-4.86)
[2020-04-27 07:04] LABS: BUN Blood Urea Nitrogen 12 mg/dL (7-18); Bicarbonate 28 mmol/L (21-32); Glucose Level 99 mg/dL (74-106); Potassium 3.8 mmol/L (3.5-5.1); Sodium Level 142 mmol/L (136-145)
[2020-04-27] MEDS: ENSURE HIGH PROTEIN 237 ML CAN PO SCH ×2 (08:00→19:56)
[2020-04-27] MEDS: VITAMIN E 400 IU CAP PO SCH (08:14)
[2020-04-27] MEDS: LIDOCAINE 4% PATCH TOP SCH (08:14)
[2020-04-27] MEDS: LOSARTAN POTASSIUM 50 MG TABLET PO SCH (08:15)
[2020-04-27] MEDS: ASPIRIN EC 81 MG TAB PO SCH (08:15)
[2020-04-27] MEDS: FERROUS SULFATE 325 MG TAB PO SCH (08:15)
[2020-04-27] MEDS: FE SULF/FA/VIT B COMP & C TAB PO SCH (08:17)
[2020-04-27] MEDS: GABAPENTIN 300 MG CAP PO SCH ×2 (08:17→19:55)
[2020-04-27] MEDS: MAGNESIUM OXIDE 400 MG TAB PO SCH ×2 (08:18→19:56)
[2020-04-27] MEDS: METOPROLOL XL 50 MG TAB PO SCH (08:19)
[2020-04-27] MEDS: VENLAFAXINE HCL XR 37.5MG CAP PO SCH (08:19)
[2020-04-27] MEDS: PROMOD 30 ML DOSE PO SCH ×2 (08:30→19:56)
--- NOTE | 2020-04-27 11:24 | P.PN ---
Subjective Date of Service: 04/27/20 Chief Complaint: HIP FRACTURE Subjective: Improving LYDIA HAS ALREADY STARTED TO WALK WELL EVEN IN PAIN. LYDIA IS DOING GREAT. SHE HAS SOME PAIN BUT HER TOLERANCE IS GOOD. SHE IS SOMEWHAT DEPRESSED FROM SON'S BY SUICIDE RELATED TO LIVER CANCER. SHE IS STILL IN SIGNIFICANT AMOUNT OF PAIN. Physical Examination - Vital Signs Temperature: 97.9 F Blood Pressure: 149/76 Pulse: 80 Respirations: 16 Pulse Ox (%): 96 - Physical Exam General: Alert, In no apparent distress HEENT: Atraumatic, PERRLA, EOMI Neck: Supple, JVD not distended Respiratory: Clear to auscultation bilaterally, Normal air movement Cardiovascular: Regular rate/rhythm, Normal S1 S2 Gastrointestinal: Normal bowel sounds, No tenderness Musculoskeletal: No tenderness, Other (L HIP AREA PAIN.) Integumentary: No rashes Neurological: Normal speech, Normal tone, Normal affect Lymphatics: No axilla or inguinal lymphadenopathy - Studies Laboratory Data (last 24 hrs) 04/27/20 06:32: Sodium 142, Potassium 3.8, BUN 12, Creatinine 0.51 L, Glucose 99 04/27/20 06:32: WBC 7.0, Hgb 9.5 L, Hct 27.7 L, Plt Count 239 Microbiology Data (last 24 hrs): 04/23/20 23:00 Clean Catch Urine [place] Count - Final <10,000 CFU/ML. 04/23/20 23:00 Clean Catch Urine - Final MIXED CARLOS. Medications List Reviewed: Yes Assessment And Plan - Current Problems (Diagnosis) (1) HTN (hypertension) Current Visit: Yes Status: Chronic Plan: FLUCTUATES WILL WATCH Qualifiers: Hypertension type: essential hypertension Qualified Code(s): I10 - Essential (primary) hypertension (2) Subcapital fracture of left hip Current Visit: No Status: Acute Plan: L SIDE. CONTINUE PT ANEMIA FROM LOVENOX, POST OP WILL WATCH. Qualifiers: Encounter type: subsequent encounter Fracture type: closed Fracture healing: with routine healing Qualified Code(s): S72.012D - Unspecified intracapsular fracture of left femur, subsequent encounter for closed fracture with routine healing (3) History of coronary artery disease Current Visit: No Status: Chronic Plan: NO ACUTE SS. (4) Anemia Current Visit: Yes Status: Acute Plan: POST OP LOSS OF BLOOD. WATCH HG EVERY FEW DAYS. Qualifiers: Anemia type: other cause
[2020-04-27] MEDS: ENOXAPARIN 40 MG/0.4 ML SQ SCH (17:17)
[2020-04-27] MEDS: MELATONIN 3 MG TABLET PO PRN (19:55)
[2020-04-27] MEDS: TRAMADOL HCL 50 MG TAB PO PRN (19:55)
[2020-04-27] MEDS: ATORVASTATIN 40 MG TAB PO SCH (19:56)
[2020-04-28] MEDS: LIDOCAINE 4% PATCH TOP SCH (07:36)
[2020-04-28] MEDS: TRAMADOL HCL 50 MG TAB PO PRN ×2 (07:55→20:50)
[2020-04-28] MEDS: GABAPENTIN 300 MG CAP PO SCH ×2 (07:56→20:49)
[2020-04-28] MEDS: MAGNESIUM OXIDE 400 MG TAB PO SCH ×2 (07:56→20:49)
[2020-04-28] MEDS: ENSURE HIGH PROTEIN 237 ML CAN PO SCH ×2 (08:00→20:00)
[2020-04-28] MEDS: VENLAFAXINE HCL XR 37.5MG CAP PO SCH (08:12)
[2020-04-28] MEDS: VITAMIN E 400 IU CAP PO SCH (08:13)
[2020-04-28] MEDS: FE SULF/FA/VIT B COMP & C TAB PO SCH (08:13)
[2020-04-28] MEDS: LOSARTAN POTASSIUM 50 MG TABLET PO SCH (08:13)
[2020-04-28] MEDS: METOPROLOL XL 50 MG TAB PO SCH (08:13)
[2020-04-28] MEDS: ASPIRIN EC 81 MG TAB PO SCH (08:13)
[2020-04-28] MEDS: PROMOD 30 ML DOSE PO SCH ×2 (08:13→20:50)
[2020-04-28] MEDS: FERROUS SULFATE 325 MG TAB PO SCH (08:14)
[2020-04-28] MEDS: methocarbamoL 500 MG TAB PO SCH ×3 (08:40→20:50)
[2020-04-28] MEDS ORDERED: NA CHLORIDE 0.9% 1,000 ML IV SCH (15:00)
[2020-04-28] MEDS: ENOXAPARIN 40 MG/0.4 ML SQ SCH (16:44)
--- NOTE | 2020-04-28 17:59 | R.PN ---
PROGRESS NOTES ENCOUNTER DATE AND TIME: 04/28/2020 17:49 (CDT) NAME LYDIA ALVAREZ DATE OF : 1935 DATE OF ADMISSION: 04/23/2020 16:32 (CDT) Left hip displaced femoral neck fractureCHIEF COMPLAINT: Left hip fracture. SUBJECTIVE: Pt denied any Shortness of Breath. Pt denied any depression. Mrs. Alvarez had a near syncopal episode while doing physical therapy today. Her blood pressure dropp ed to 98/45 with pulse 93. She was put back to bed and her BP improved to 145/86 with pulse of 85. He r symptoms resolved. Her Cozaar was decred to 25 mg daily and Toprol XL cut to 12.5 mg daily. WBC 7.0, Hgb 9.5, glucose 92 to 133. COVID-19 is negative. She ambulated 500' independently using a rollator. VITAL SIGNS Temperature: 97.2 F SBP/DBP: 164/71 Pulse: 89 Resp: 16 MEDICATION ALLERGIES: Regadenoson Contrast Allergy ENVIRONMENTAL ALLERGIES: None Known - Substance Allergies None Known - Other Allergies Allergy to CONTRAST NURSING: - Shower allowing shower - Skin care per protocol PRECAUTIONS: - Posterior Hip Precaution No adduction across midline No external rotation No hip flexion >90 degrees No internal rotation - Weight Bearing Precaution WBAT left LE ACTIVITIES OOB only with supervision THERAPIES: - Dietary and Nutrition Adequate Nutrition. Nutritional Education. Nutritional Supplements. PHYSICAL EXAM - Gen Alert and awake Lying in bed No apparent distress Oriented to: person, time, and place - Skin Left hip incision intact and without bleeding. Normacephalic - Eyes No abnormalities - ENMT No abnormalities - Neck No abnormalities - CVS RRR - Chest No abnormalities - Resp Clear to auscultation - Abd Soft - GI Non distended Deferred - No abnormalities - Ext Mild left lower extremity edema. - MSK 4+/5 weakness in left lower extremity - Neuro 4/5 strength left lower extremity. - Psych No abnormalities ASSESSMENT: Pt. is a 84 yo Right-handed white female.On 04/19/2020 she was admitted to [facility] and [facility] emergency surgery for Left hip displaced femoral neck fracture (Left hip bipolar hemiarthroplasty using a cemented Biomet fracture stem) by DR COLUNGA.Pre-morbidly, Pt. was independent/mod-I in Transfers Control, Self-Care, and Locomotion; and she had good Balance, Saf ety Awareness, Social Cognition, Sphincter Control, and Communication.Currently, she has deficits of Transfers Control, Locomotion, Balance, Safety Awareness, and Self-Care.Pt. is now referred to [facility] for acute in-patient rehabilitation in order to maximize patient's functi onal independence in activities of daily living, strength, ROM, and mobility.- Rehab Goal Patient has realistic goal of being discharged at assistance level 6-Jesenia to reside at Home with Fam fredo/Relatives. MDM/PLAN: - Physical Therapy Decreased range of motion - to improve, our physical therapists will perform initial evaluation of p t's status upon admission and devise an individualized program for increasing patient's Range of [place] on. Gait dysfunction - to improve, our physical therapists will perform initial evaluation of pt's statu s upon admission and devise an individualized program for Gait Training, and Wheel Chair mobility Inability to transfer - to improve, our physical therapists will perform initial evaluation of pt's status upon admission and devise an individualized program for Bed mobility Need for home safety evaluation - to improve, our physical therapists will perform initial evaluatio n of pt's status upon admission and devise an individualized program for Home Evaluation Need in caregiver upon discharge - to improve, our physical therapists will perform initial evaluati on of pt's status upon admission and devise an individualized program for Caregiver Training Edema - to improve, our physical therapists will perform initial evaluation of pt's status upon admis clemente and devise an individualized program for Elevation Training, and Lymphedema Therapy New precaution - to improve, our physical therapists will perform initial evaluation of pt's status upon admission and devise an individualized program for Patient precaution education Poor balance - to improve, our physical therapists will perform initial evaluation of pt's status up on admission and devise an individualized program for Balance Training Weakness - to improve, our physical therapists will perform initial evaluation of pt's status upon a dmission and devise an individualized program for Aquatic Therapy, Neuromuscular Reeducation, and Str engthening Achieving independence - to improve, our physical therapists will perform initial evaluation of pt's status upon admission and devise an individualized program for Community Reintegration Activities - Occupational Therapy ADL deficits - to improve, our occupation therapists will perform initial evaluation of pt's status upon admission and devise an individualized program for Bathing, Bed mobility, Community Reintegratio n, Cooking, Dressing, Eating, Fine Motor Skills, Grooming, Homemaking, Kitchen Mobility, Laundry, Pat ient Education, Safety Awareness, Splinting - Positioning, Transfers(Toilet, Tub, Shower), and Wheel Chair Management Need for attending ambulatory care - to improve, our occupation therapists will perform initial evaluation of pt's status upon admission and devise an individualized program for Caregiver Training Weakness - to improve, our occupation therapists will perform initial evaluation of pt's status upon admission and devise an individualized program for Aquatic Therapy, Balance, Endurance, UE ROM, and UE strengthening - Other See attached MAR (Medication Administration Record) - Anterior Hip Precaution No abduction No active extension No adduction across midline No external rotation No hip flexion >90 degrees No internal rotation - Diet - Liquid Texture Continue Regular - Tube Feed Continue N/A - Diet Type Continue Regular - Posterior Hip Precaution No adduction across midline No external rotation No hip flexion >90 degrees No internal rotation No wheel chair propulsion - Weight Bearing Precaution WBAT left LE - Skin care per protocol - Diet - Solid Texture Continue Regular - Shower allowing shower FUNCTIONAL STATUS: UPDATED AT WEEKLY TEAM CONFERENCE - Walking Same score based on distance walked: 0(N/A) - Wheelchair Same FUNCTIONAL STATUS: - Self-Care A. Eating Ind B. Grooming [place] C. Bathing sup D. Dressing - Upper sup E. Dressing - Lower [place] F. Toileting sup - Sphincter Control G. Bladder control Jesenia H. Bowel control Jes[place] - Transfers Control I. Bed/Chair/Wheelchair sup J. Toilet sup K. Tub/Shower [place] - Locomotion L. Walk/Wheelchair (B) Jesenia M. Stairs ADNO - Communication N. Comprehension (B) Jesenia O. Expression (B) [place] - Social Cognition P. Social Interaction Ind Q. Problem Solving Ind R. Memory Ind - Endurance Good - Balance Fair - Safety Awareness Good QI SCORES: - Self-Care A. Eating 05-Setup or clean-up assistance B. Oral hygiene 04-Supervision or touching assistance C. Toileting hygiene 02-Substantial/maximal assistance E. Shower/bathe self 88-Not attempted due to medical condition or safety concerns F. Upper body dressing 10-Not attempted due to environmental limitations G. Lower body dressing 88-Not attempted due to medical condition or safety concerns H. Putting on/taking off footwear 88-Not attempted due to medical condition or safety concerns - Mobility A. Roll left and right 03-Partial/moderate assistance B. Sit to lying 02-Substantial/maximal assistance C. Lying to sitting on side of bed 02-Substantial/maximal assistance D. Sit to stand 02-Substantial/maximal assistance E. Chair/dum-wa-gdxls transfer 02-Substantial/maximal assistance F. Toilet transfer 02-Substantial/maximal assistance G. Car transfer 10-Not attempted due to environmental limitations I. Walk 10 feet 88-Not attempted due to medical condition or safety concerns J. Walk 50 feet with two turns 88-Not attempted due to medical condition or safety concerns K. Walk 150 feet 88-Not attempted due to medical condition or safety concerns L. Walking 10 feet on uneven surfaces 88-Not attempted due to medical condition or safety concerns M. 1 step (curb) 88-Not attempted due to medical condition or safety concerns N. 4 steps 88-Not attempted due to medical condition or safety concerns O. 12 steps 88-Not attempted due to medical condition or safety concerns P. Picking up object 88-Not attempted due to medical condition or safety concerns - Bladder and Bowel Bladder continence 1-Stress incontinence only Bowel continence 0-Always continent - Endurance Poor - Balance Poor - Safety Awareness Poor CURRENT FUNC. DEFICITS: Self-Care, Mobility, Endurance, Balance, and Safety Awareness SIGNATURE PANEL: (CDT)
--- NOTE | 2020-04-28 18:15 | P.PN ---
Subjective Date of Service: 04/28/20 Chief Complaint: HIP FRACTURE Subjective: Improving LYDIA HAS ALREADY STARTED TO WALK WELL EVEN IN PAIN. LYDIA IS DOING GREAT. SHE HAS SOME PAIN BUT HER TOLERANCE IS GOOD. SHE IS SOMEWHAT DEPRESSED FROM SON'S BY SUICIDE RELATED TO LIVER CANCER. SHE IS STILL IN SIGNIFICANT AMOUNT OF PAIN. 'SPASMS ALL NIGHT. Review of Systems 10-point ROS is otherwise unremarkable Neurological: As per HPI Physical Examination - Vital Signs Temperature: 99.2 F Blood Pressure: 112/43 Pulse: 79 Respirations: 16 Pulse Ox (%): 96 - Physical Exam General: Alert, Mild distress, Moderate distress HEENT: Atraumatic, PERRLA, EOMI Neck: Supple, JVD not distended Respiratory: Clear to auscultation bilaterally, Normal air movement Cardiovascular: Regular rate/rhythm, Normal S1 S2 Gastrointestinal: Normal bowel sounds, No tenderness Musculoskeletal: No tenderness Integumentary: No rashes Neurological: Normal speech, Normal tone, Normal affect Lymphatics: No axilla or inguinal lymphadenopathy - Studies Medications List Reviewed: Yes Assessment And Plan - Current Problems (Diagnosis) (1) HTN (hypertension) Current Visit: Yes Status: Chronic Plan: FLUCTUATES WILL WATCH Qualifiers: Hypertension type: essential hypertension Qualified Code(s): I10 - Essential (primary) hypertension (2) Subcapital fracture of left hip Current Visit: No Status: Acute Plan: L SIDE. CONTINUE PT ANEMIA FROM LOVENOX, POST OP WILL WATCH. I ADDED ROBAXIN EVERY EIGHT HOURS. Qualifiers: Encounter type: subsequent encounter Fracture type: closed Fracture healing: with routine healing Qualified Code(s): S72.012D - Unspecified intracapsular fracture of left femur, subsequent encounter for closed fracture with routine healing (3) History of coronary artery disease Current Visit: No Status: Chronic Plan: NO ACUTE SS. (4) Anemia Current Visit: Yes Status: Acute Plan: POST OP LOSS OF BLOOD. WATCH HG EVERY FEW DAYS. Qualifiers: Anemia type: other cause
[2020-04-28] MEDS: ATORVASTATIN 40 MG TAB PO SCH (20:50)
[2020-04-28] MEDS: DOCUSATE NA/SENNA CONC 1 TAB PO PRN (20:50)
[2020-04-28] MEDS: MELATONIN 3 MG TABLET PO PRN (20:50)
--- NOTE | 2020-04-29 02:39 | FAST ---
[employer] FORM SHIFT START DATE/TIME: 04/28/2020 19:00 (CDT) SHIFT END DATE/TIME: 04/29/2020 07:00 (CDT) NAME LYDIA ALVAREZ DATE OF : 1935 DATE OF ADMISSION: 04/23/2020 16:32 (CDT) PHONE: AGE: 84 N# [id number] GENDER: Female ENCOUNTER PHYSICIAN: Dr. Wes Chance M.D. ADMISSION DIAGNOSIS: - Orthopaedic Disorders 08 - Unilateral Hip Fracture (08.11) Left hip displaced femoral neck fracture. EATING: Not assessed/no information CODE: - ORAL HYGIENE: ORAL HYGIENE - STEP 1: Does the patient complete the activity by him/herself with no assistance (physical, verbal/nonverbal cueing, setup/clean-up)? No. ORAL HYGIENE - STEP 2: Does the patient need only setup/clean-up assistance from one helper? No. ORAL HYGIENE - STEP 3: Does the patient need only verbal/nonverbal cueing or touching/steadying/contact guard assistance fro m one helper? Yes. 1. [id number] ADMISSION PERFORMANCE: Supervision or touching assistance CODE: 04 TOILETING HYGIENE: TOILETING HYGIENE - STEP 1: Does the patient complete the activity by him/herself with no assistance (physical, verbal/nonverbal cueing, setup/clean-up)? No. TOILETING HYGIENE - STEP 2: Does the patient need only setup/clean-up assistance from one helper? No. TOILETING HYGIENE - STEP 3: Does the patient need only verbal/nonverbal cueing or touching/steadying/contact guard assistance fro m one helper? Yes. 1. [id number] ADMISSION PERFORMANCE: Supervision or touching assistance CODE: 04 BATHING: Not assessed/no information CODE: - DRESSING - UPPER BODY: Not assessed/no information CODE: - DRESSING - LOWER BODY: Not assessed/no information CODE: - PUTTING ON/TAKING OFF FOOTWEAR: Not assessed/no information CODE: - ROLL LEFT AND RIGHT: ROLL LEFT AND RIGHT - STEP 1: Does the patient complete the activity by him/herself with no assistance (physical, verbal/nonverbal cueing, setup/clean-up)? No. ROLL LEFT AND RIGHT - STEP 2: Does the patient need only setup/clean-up assistance from one helper? No. ROLL LEFT AND RIGHT - STEP 3: Does the patient need only verbal/nonverbal cueing or touching/steadying/contact guard assistance fro m one helper? Yes. 1. [id number] ADMISSION PERFORMANCE: Supervision or touching assistance CODE: 04 SIT TO LYING: SIT TO LYING - STEP 1: Does the patient complete the activity by him/herself with no assistance (physical, verbal/nonverbal cueing, setup/clean-up)? No. SIT TO LYING - STEP 2: Does the patient need only setup/clean-up assistance from one helper? No. SIT TO LYING - STEP 3: Does the patient need only verbal/nonverbal cueing or touching/steadying/contact guard assistance fro m one helper? Yes. 1. [id number] ADMISSION PERFORMANCE: Supervision or touching assistance CODE: 04 LYING TO SITTING: LYING TO SITTING ON SIDE OF BED - STEP 1: Does the patient complete the activity by him/herself with no assistance (physical, verbal/nonverbal cueing, setup/clean-up)? No. LYING TO SITTING ON SIDE OF BED - STEP 2: Does the patient need only setup/clean-up assistance from one helper? No. LYING TO SITTING ON SIDE OF BED - STEP 3: Does the patient need only verbal/nonverbal cueing or touching/steadying/contact guard assistance fro m one helper? Yes. 1. [id number] ADMISSION PERFORMANCE: Supervision or touching assistance CODE: 04 SIT TO STAND: SIT TO STAND - STEP 1: Does the patient complete the activity by him/herself with no assistance (physical, verbal/nonverbal cueing, setup/clean-up)? No. SIT TO STAND - STEP 2: Does the patient need only setup/clean-up assistance from one helper? No. SIT TO STAND - STEP 3: Does the patient need only verbal/nonverbal cueing or touching/steadying/contact guard assistance fro m one helper? Yes. 1. [id number] ADMISSION PERFORMANCE: Supervision or touching assistance CODE: 04 TRANSFERS: BED, CHAIR: Not assessed/no information CODE: - TRANSFER TOILET: TOILET TRANSFER - STEP 1: Does the patient complete the activity by him/herself with no assistance (physical, verbal/nonverbal cueing, setup/clean-up)? No. TOILET TRANSFER - STEP 2: Does the patient need only setup/clean-up assistance from one helper? No. TOILET TRANSFER - STEP 3: Does the patient need only verbal/nonverbal cueing or touching/steadying/contact guard assistance fro m one helper? Yes. 1. [id number] ADMISSION PERFORMANCE: Supervision or touching assistance CODE: 04 TRANSFERS: CAR: Not assessed/no information CODE: - WALK 10 FEET: Not assessed/no information CODE: - 1 STEP (CURB): Not assessed/no information CODE: - PICKING UP OBJECT: Not assessed/no information CODE: - DOES THE PATIENT USE A WHEELCHAIR/SCOOTER? CODE: EXPR WHEEL 50 FEET WITH TWO TURNS: Not assessed/no information CODE: - INDICATE THE TYPE OF WHEELCHAIR/SCOOTER USED: CODE: EXPR WHEEL 150 FEET: Not assessed/no information CODE: - INDICATE THE TYPE OF WHEELCHAIR/SCOOTER USED: CODE: EXPR BLADDER AND BOWEL: H350. BLADDER CONTINENCE (3-DAY ASSESSMENT PERIOD): Always continent (no documented incontinence) CODE: 0 H400. BOWEL CONTINENCE (3-DAY ASSESSMENT PERIOD): Always continent CODE: 0
[2020-04-29] MEDS ORDERED: METOPROLOL XL 25 MG TAB PO SCH (06:00)
[2020-04-29 06:18] LABS: Absolute Lymphocytes (CBC) 2.3 K/uL (0.7-4.9); Basophils % 1.1 % (0-1.3); Lymphocytes % 31.4 % (15.3-44.8); MPV 7.2 fL (7.6-11.3)
[2020-04-29] MEDS: TRAMADOL HCL 50 MG TAB PO PRN ×2 (06:27→09:58)
[2020-04-29 06:34] LABS: BUN Blood Urea Nitrogen 14 mg/dL (7-18); Bicarbonate 28 mmol/L (21-32); Glucose Level 98 mg/dL (74-106); Potassium 4.2 mmol/L (3.5-5.1); Sodium Level 143 mmol/L (136-145)
[2020-04-29] MEDS: LOSARTAN POTASSIUM 50 MG TABLET PO SCH (08:00)
[2020-04-29] MEDS: ENSURE HIGH PROTEIN 237 ML CAN PO SCH ×2 (08:00→20:38)
[2020-04-29] MEDS: ASPIRIN EC 81 MG TAB PO SCH (08:31)
[2020-04-29] MEDS: LIDOCAINE 4% PATCH TOP SCH ×2 (08:31→10:39)
[2020-04-29] MEDS: MAGNESIUM OXIDE 400 MG TAB PO SCH ×2 (08:32→20:41)
[2020-04-29] MEDS: GABAPENTIN 300 MG CAP PO SCH ×2 (08:32→20:40)
[2020-04-29] MEDS: VITAMIN E 400 IU CAP PO SCH (08:32)
[2020-04-29] MEDS: FERROUS SULFATE 325 MG TAB PO SCH (08:32)
[2020-04-29] MEDS: FE SULF/FA/VIT B COMP & C TAB PO SCH (08:32)
[2020-04-29] MEDS: VENLAFAXINE HCL XR 37.5MG CAP PO SCH (08:33)
[2020-04-29] MEDS: PROMOD 30 ML DOSE PO SCH ×2 (08:35→20:41)
[2020-04-29] MEDS: methocarbamoL 500 MG TAB PO SCH (08:35)
--- NOTE | 2020-04-29 10:59 | RAD REPORT ---
EXAM DESCRIPTION: RAD - Hip Left 2 View - 04/29/2020 9:56 am CLINICAL HISTORY: Left hip pain FINDINGS: Left hip prosthesis. No evidence of loosening No fracture or dislocation
--- NOTE | 2020-04-29 12:05 | P.PN ---
Subjective Date of Service: 04/29/20 Chief Complaint: L THIGH PAIN, CRAMPS LYDIA HAS ALREADY STARTED TO WALK WELL EVEN IN PAIN. LYDIA IS DOING GREAT. SHE HAS SOME PAIN BUT HER TOLERANCE IS GOOD. SHE IS SOMEWHAT DEPRESSED FROM SON'S BY SUICIDE RELATED TO LIVER CANCER. SHE IS STILL IN SIGNIFICANT AMOUNT OF PAIN. 'SPASMS ALL NIGHT. SHE IS ON NEW MEDS NOW. Review of Systems 10-point ROS is otherwise unremarkable Physical Examination - Vital Signs Temperature: 97.3 F Blood Pressure: 148/59 Pulse: 75 Respirations: 18 Pulse Ox (%): 97 - Physical Exam General: Mild distress HEENT: Atraumatic, PERRLA, EOMI Neck: Supple, JVD not distended Respiratory: Clear to auscultation bilaterally, Normal air movement Cardiovascular: Regular rate/rhythm, Normal S1 S2 Gastrointestinal: Normal bowel sounds, No tenderness Musculoskeletal: No tenderness Integumentary: No rashes Neurological: Normal speech, Normal tone, Normal affect Lymphatics: No axilla or inguinal lymphadenopathy - Studies Laboratory Data (last 24 hrs) 04/29/20 06:03: Sodium 143, Potassium 4.2, BUN 14, Creatinine 0.55, Glucose 98 04/29/20 06:03: WBC 7.4, Hgb 9.3 L, Hct 26.0 L, Plt Count 301 D Medications List Reviewed: Yes Assessment And Plan - Current Problems (Diagnosis) (1) HTN (hypertension) Current Visit: Yes Status: Chronic Plan: FLUCTUATES WILL WATCH Qualifiers: Hypertension type: essential hypertension Qualified Code(s): I10 - Essential (primary) hypertension (2) Subcapital fracture of left hip Current Visit: No Status: Acute Plan: L SIDE. CONTINUE PT ANEMIA FROM LOVENOX, POST OP WILL WATCH. I ADDED ROBAXIN EVERY EIGHT HOURS. FU ON EFFECT OF ABOVE. Qualifiers: Encounter type: subsequent encounter Fracture type: closed Fracture healing: with routine healing Qualified Code(s): S72.012D - Unspecified intracapsular fracture of left femur, subsequent encounter for closed fracture with routine healing (3) History of coronary artery disease Current Visit: No Status: Chronic Plan: NO ACUTE SS. (4) Anemia Current Visit: Yes Status: Acute Plan: POST OP LOSS OF BLOOD. WATCH HG EVERY FEW DAYS. Qualifiers: Anemia type: other cause
[2020-04-29] MEDS: methocarbamoL 750 MG TAB PO SCH ×2 (14:33→20:40)
[2020-04-29] MEDS ORDERED: ONDANSETRON 4 MG/2 ML VIAL IV ONE (16:00)
[2020-04-29] MEDS: ENOXAPARIN 40 MG/0.4 ML SQ SCH (16:36)
--- NOTE | 2020-04-29 18:45 | R.PN ---
PROGRESS NOTES ENCOUNTER DATE AND TIME: 04/29/2020 18:41 (CDT) NAME LYDIA ALVAREZ DATE OF : 1935 DATE OF ADMISSION: 04/23/2020 16:32 (CDT) Left hip displaced femoral neck fractureCHIEF COMPLAINT: Left hip fracture. SUBJECTIVE: Pt denied any Shortness of Breath. Pt denied any depression. WBC 7.4, Hgb 9.3, glucose 90 to 108. COVID-19 is negative. She ambulated 1500' independently using a rollator. VITAL SIGNS Temperature: 97.3F SBP/DBP: 148/59 Pulse: 75 Resp: 16 MEDICATION ALLERGIES: Regadenoson Contrast Allergy ENVIRONMENTAL ALLERGIES: None Known - Substance Allergies None Known - Other Allergies Allergy to CONTRAST NURSING: - Shower allowing shower - Skin care per protocol PRECAUTIONS: - Posterior Hip Precaution No adduction across midline No external rotation No hip flexion >90 degrees No internal rotation - Weight Bearing Precaution WBAT left LE ACTIVITIES OOB only with supervision THERAPIES: - Dietary and Nutrition Adequate Nutrition. Nutritional Education. Nutritional Supplements. PHYSICAL EXAM - Gen Alert and awake Lying in bed No apparent distress Oriented to: person, time, and place - Skin Left hip incision intact and without bleeding. Normacephalic - Eyes No abnormalities - ENMT No abnormalities - Neck No abnormalities - CVS RRR - Chest No abnormalities - Resp Clear to auscultation - Abd Soft - GI Non distended Deferred - No abnormalities - Ext Mild left lower extremity edema. - MSK 4+/5 weakness in left lower extremity - Neuro 4/5 strength left lower extremity. - Psych No abnormalities ASSESSMENT: Pt. is a 84 yo Right-handed white female.On 04/19/2020 she was admitted to [facility] and [facility] emergency surgery for Left hip displaced femoral neck fracture (Left hip bipolar hemiarthroplasty using a cemented Biomet fracture stem) by DR COLUNGA.Pre-morbidly, Pt. was independent/mod-I in Transfers Control, Self-Care, and Locomotion; and she had good Balance, Saf ety Awareness, Social Cognition, Sphincter Control, and Communication.Currently, she has deficits of Transfers Control, Locomotion, Balance, Safety Awareness, and Self-Care.Pt. is now referred to [facility] for acute in-patient rehabilitation in order to maximize patient's functi onal independence in activities of daily living, strength, ROM, and mobility.- Rehab Goal Patient has realistic goal of being discharged at assistance level 6-Jesenia to reside at Home with Fam fredo/Relatives. MDM/PLAN: - Physical Therapy Decreased range of motion - to improve, our physical therapists will perform initial evaluation of p t's status upon admission and devise an individualized program for increasing patient's Range of [place] on. Gait dysfunction - to improve, our physical therapists will perform initial evaluation of pt's statu s upon admission and devise an individualized program for Gait Training, and Wheel Chair mobility Inability to transfer - to improve, our physical therapists will perform initial evaluation of pt's status upon admission and devise an individualized program for Bed mobility Need for home safety evaluation - to improve, our physical therapists will perform initial evaluatio n of pt's status upon admission and devise an individualized program for Home Evaluation Need in caregiver upon discharge - to improve, our physical therapists will perform initial evaluati on of pt's status upon admission and devise an individualized program for Caregiver Training Edema - to improve, our physical therapists will perform initial evaluation of pt's status upon admi ssion and devise an individualized program for Elevation Training, and Lymphedema Therapy New precaution - to improve, our physical therapists will perform initial evaluation of pt's status upon admission and devise an individualized program for Patient precaution education Poor balance - to improve, our physical therapists will perform initial evaluation of pt's status up on admission and devise an individualized program for Balance Training Weakness - to improve, our physical therapists will perform initial evaluation of pt's status upon a dmission and devise an individualized program for Aquatic Therapy, Neuromuscular Reeducation, and Str engthening Achieving independence - to improve, our physical therapists will perform initial evaluation of pt's status upon admission and devise an individualized program for Community Reintegration Activities - Occupational Therapy ADL deficits - to improve, our occupation therapists will perform initial evaluation of pt's status upon admission and devise an individualized program for Bathing, Bed mobility, Community Reintegratio n, Cooking, Dressing, Eating, Fine Motor Skills, Grooming, Homemaking, Kitchen Mobility, Laundry, Pat ient Education, Safety Awareness, Splinting - Positioning, Transfers(Toilet, Tub, Shower), and Wheel Chair Management Need for career placement specialist - to improve, our occupation therapists will perform initial evaluation of pt's status upon admission and devise an individualized program for Caregiver Training Weakness - to improve, our occupation therapists will perform initial evaluation of pt's status upon admission and devise an individualized program for Aquatic Therapy, Balance, Endurance, UE ROM, and UE strengthening - Other See attached MAR (Medication Administration Record) - Anterior Hip Precaution No abduction No active extension No adduction across midline No external rotation No hip flexion >90 degrees No internal rotation - Diet - Liquid Texture Continue Regular - Tube Feed Continue N/A - Diet Type Continue Regular - Posterior Hip Precaution No adduction across midline No external rotation No hip flexion >90 degrees No internal rotation No wheel chair propulsion - Weight Bearing Precaution WBAT left LE - Skin care per protocol - Diet - Solid Texture Continue Regular - Shower allowing shower FUNCTIONAL STATUS: UPDATED AT WEEKLY TEAM CONFERENCE - Walking Same score based on distance walked: 0(N/A) - Wheelchair Same FUNCTIONAL STATUS: - Self-Care A. Eating Ind B. Grooming Jes[place] C. Bathing sup D. Dressing - Upper sup E. Dressing - Lower [place] F. Toileting sup - Sphincter Control G. Bladder control Jesenia H. Bowel control Jesenia - Transfers Control I. Bed/Chair/Wheelchair sup J. Toilet sup K. Tub/Shower [place] - Locomotion L. Walk/Wheelchair (B) Jesenia M. Stairs ADNO - Communication N. Comprehension (B) Jesenia O. Expression (B) [place] - Social Cognition P. Social Interaction Ind Q. Problem Solving Ind R. Memory Ind - Endurance Good - Balance Fair - Safety Awareness Good QI SCORES: - Self-Care A. Eating 05-Setup or clean-up assistance B. Oral hygiene 04-Supervision or touching assistance C. Toileting hygiene 02-Substantial/maximal assistance E. Shower/bathe self 88-Not attempted due to medical condition or safety concerns F. Upper body dressing 10-Not attempted due to environmental limitations G. Lower body dressing 88-Not attempted due to medical condition or safety concerns H. Putting on/taking off footwear 88-Not attempted due to medical condition or safety concerns - Mobility A. Roll left and right 03-Partial/moderate assistance B. Sit to lying 02-Substantial/maximal assistance C. Lying to sitting on side of bed 02-Substantial/maximal assistance D. Sit to stand 02-Substantial/maximal assistance E. Chair/[id number] transfer 02-Substantial/maximal assistance F. Toilet transfer 02-Substantial/maximal assistance G. Car transfer 10-Not attempted due to environmental limitations I. Walk 10 feet 88-Not attempted due to medical condition or safety concerns J. Walk 50 feet with two turns 88-Not attempted due to medical condition or safety concerns K. Walk 150 feet 88-Not attempted due to medical condition or safety concerns L. Walking 10 feet on uneven surfaces 88-Not attempted due to medical condition or safety concerns M. 1 step (curb) 88-Not attempted due to medical condition or safety concerns N. 4 steps 88-Not attempted due to medical condition or safety concerns O. 12 steps 88-Not attempted due to medical condition or safety concerns P. Picking up object 88-Not attempted due to medical condition or safety concerns - Bladder and Bowel Bladder continence 1-Stress incontinence only Bowel continence 0-Always continent - Endurance Poor - Balance Poor - Safety Awareness Poor CURRENT FUNC. DEFICITS: Self-Care, Mobility, Endurance, Balance, and Safety Awareness SIGNATURE PANEL: (CDT)
[2020-04-29] MEDS: ATORVASTATIN 40 MG TAB PO SCH (20:41)
[2020-04-30] MEDS: GABAPENTIN 300 MG CAP PO SCH ×2 (07:05→20:33)
[2020-04-30] MEDS: MAGNESIUM OXIDE 400 MG TAB PO SCH ×2 (07:05→20:33)
[2020-04-30] MEDS: methocarbamoL 750 MG TAB PO SCH ×3 (07:05→20:33)
[2020-04-30] MEDS: ENSURE HIGH PROTEIN 237 ML CAN PO SCH (08:00)
[2020-04-30] MEDS: TRAMADOL HCL 50 MG TAB PO PRN (08:29)
[2020-04-30] MEDS: ASPIRIN EC 81 MG TAB PO SCH (08:30)
[2020-04-30] MEDS: LOSARTAN POTASSIUM 50 MG TABLET PO SCH (08:30)
[2020-04-30] MEDS: FE SULF/FA/VIT B COMP & C TAB PO SCH (08:30)
[2020-04-30] MEDS: VENLAFAXINE HCL XR 37.5MG CAP PO SCH (08:30)
[2020-04-30] MEDS: VITAMIN E 400 IU CAP PO SCH (08:31)
[2020-04-30] MEDS: METOPROLOL XL 25 MG TAB PO SCH ×2 (08:31→20:34)
[2020-04-30] MEDS: FERROUS SULFATE 325 MG TAB PO SCH (08:32)
[2020-04-30] MEDS: PROMOD 30 ML DOSE PO SCH ×2 (08:32→20:00)
[2020-04-30] MEDS: LIDOCAINE 4% PATCH TOP SCH (10:37)
--- NOTE | 2020-04-30 15:25 | FAST ---
OT QI REPORT FORM ENCOUNTER DATE AND TIME: 04/30/2020 08:00 (CDT) NAME LYDIA ALVAREZ DATE OF : 1935 DATE OF ADMISSION: 04/23/2020 16:32 (CDT) PHONE: AGE: 84 N# [id number] GENDER: Female ENCOUNTER PHYSICIAN: Dr. Wes Chance M.D. ADMISSION DIAGNOSIS: - Orthopaedic Disorders 08 - Unilateral Hip Fracture (04.15) Left hip displaced femoral neck fracture. EATING: Not assessed/no information CODE: - ORAL HYGIENE: ORAL HYGIENE - STEP 1: Does the patient complete the activity by him/herself with no assistance (physical, verbal/nonverbal cueing, setup/clean-up)? Yes. 1. [id number] ADMISSION PERFORMANCE: Independent CODE: 06 TOILETING HYGIENE: Not assessed/no information CODE: - BATHING: SHOWER/BATHE SELF - STEP 1: Does the patient complete the activity by him/herself with no assistance (physical, verbal/nonverbal cueing, setup/clean-up)? Yes. 1. [id number] ADMISSION PERFORMANCE: Independent CODE: 06 DRESSING - UPPER BODY: DRESSING - UPPER BODY - STEP 1: Does the patient complete the activity by him/herself with no assistance (physical, verbal/nonverbal cueing, setup/clean-up)? Yes. 1. [id number] ADMISSION PERFORMANCE: Independent CODE: 06 DRESSING - LOWER BODY: DRESSING - LOWER BODY - STEP 1: Does the patient complete the activity by him/herself with no assistance (physical, verbal/nonverbal cueing, setup/clean-up)? Yes. 1. [id number] ADMISSION PERFORMANCE: Independent CODE: 06 PUTTING ON/TAKING OFF FOOTWEAR: FOOTWEAR - STEP 1: Does the patient complete the activity by him/herself with no assistance (physical, verbal/nonverbal cueing, setup/clean-up)? Yes. 1. [id number] ADMISSION PERFORMANCE: Independent CODE: 06 DOES THE PATIENT USE A WHEELCHAIR/SCOOTER? CODE: EXPR INDICATE THE TYPE OF WHEELCHAIR/SCOOTER USED: CODE: EXPR INDICATE THE TYPE OF WHEELCHAIR/SCOOTER USED: CODE: EXPR BLADDER AND BOWEL: CODE: EXPR CODE: EXPR SIGNATURE PANEL: The following modified sections: 1. [id number] Admission Performance, 1. [id number] Admission Performance, 1. [id number] Admission Performance, 1. [id number] Admission Performance, 1. [id number] Admission Performance, 1. [id number] Admission Performance were [electronically] signed by HARPER Montoya on TueApr 30 2020 15:23:56 GMT-0500 (Central Daylight Time)
[2020-04-30] MEDS: ENOXAPARIN 40 MG/0.4 ML SQ SCH (17:07)
--- NOTE | 2020-04-30 17:56 | P.PN ---
Subjective Date of Service: 04/30/20 Chief Complaint: L THIGH PAIN, CRAMPS Subjective: Improving LYDIA HAS ALREADY STARTED TO WALK WELL EVEN IN PAIN. LYDIA IS DOING GREAT. SHE HAS SOME PAIN BUT HER TOLERANCE IS GOOD. SHE IS SOMEWHAT DEPRESSED FROM SON'S BY SUICIDE RELATED TO LIVER CANCER. SHE IS STILL IN SIGNIFICANT AMOUNT OF PAIN. 'SPASMS ALL NIGHT. SHE IS ON NEW MEDS NOW. STILL IN PAIN BUT ABLE TO TOLERATE IT. Review of Systems 10-point ROS is otherwise unremarkable Physical Examination - Vital Signs Temperature: 97.5 F Blood Pressure: 149/66 Pulse: 88 Respirations: 16 Pulse Ox (%): 95 - Physical Exam General: Mild distress HEENT: Atraumatic, PERRLA, EOMI Neck: Supple, JVD not distended Respiratory: Clear to auscultation bilaterally, Normal air movement Cardiovascular: Regular rate/rhythm, Normal S1 S2 Gastrointestinal: Normal bowel sounds, No tenderness Musculoskeletal: No tenderness Integumentary: No rashes Neurological: Normal speech, Normal tone, Normal affect Lymphatics: No axilla or inguinal lymphadenopathy - Studies Medications List Reviewed: Yes Assessment And Plan - Current Problems (Diagnosis) (1) HTN (hypertension) Current Visit: Yes Status: Chronic Plan: FLUCTUATES WILL WATCH Qualifiers: Hypertension type: essential hypertension Qualified Code(s): I10 - Essential (primary) hypertension (2) Subcapital fracture of left hip Current Visit: No Status: Acute Plan: L SIDE. CONTINUE PT ANEMIA FROM LOVENOX, POST OP WILL WATCH. I ADDED ROBAXIN EVERY EIGHT HOURS. FU ON EFFECT OF ABOVE. Qualifiers: Encounter type: subsequent encounter Fracture type: closed Fracture healing: with routine healing Qualified Code(s): S72.012D - Unspecified intracapsular fracture of left femur, subsequent encounter for closed fracture with routine healing (3) History of coronary artery disease Current Visit: No Status: Chronic Plan: NO ACUTE SS. (4) Anemia Current Visit: Yes Status: Acute Plan: POST OP LOSS OF BLOOD. WATCH HG EVERY FEW DAYS. HG IS STABLE NOW. Qualifiers: Anemia type: other cause
--- NOTE | 2020-04-30 19:47 | R.PN ---
PROGRESS NOTES ENCOUNTER DATE AND TIME: 04/30/2020 19:44 (CDT) NAME LYDIA ALVAREZ DATE OF : 1935 DATE OF ADMISSION: 04/23/2020 16:32 (CDT) Left hip displaced femoral neck fractureCHIEF COMPLAINT: Left hip fracture. SUBJECTIVE: Pt denied any Shortness of Breath. Pt denied any depression. WBC 7.4, Hgb 9.3, glucose 90 to 108. COVID-19 is negative. She ambulated 1500' independently using a rollator. Left hip x-ray show prosthesis is in place. VITAL SIGNS Temperature: 97.5 F SBP/DBP: 149/66 Pulse: 88 Resp: 16 MEDICATION ALLERGIES: Regadenoson Contrast Allergy ENVIRONMENTAL ALLERGIES: None Known - Substance Allergies None Known - Other Allergies Allergy to CONTRAST NURSING: - Shower allowing shower - Skin care per protocol PRECAUTIONS: - Posterior Hip Precaution No adduction across midline No external rotation No hip flexion >90 degrees No internal rotation - Weight Bearing Precaution WBAT left LE ACTIVITIES OOB only with supervision THERAPIES: - Dietary and Nutrition Adequate Nutrition. Nutritional Education. Nutritional Supplements. PHYSICAL EXAM - Gen Alert and awake Lying in bed No apparent distress Oriented to: person, time, and place - Skin Left hip incision intact and without bleeding. Normacephalic - Eyes No abnormalities - ENMT No abnormalities - Neck No abnormalities - CVS RRR - Chest No abnormalities - Resp Clear to auscultation - Abd Soft - GI Non distended Deferred - No abnormalities - Ext Mild left lower extremity edema. - MSK 4+/5 weakness in left lower extremity - Neuro 4/5 strength left lower extremity. - Psych No abnormalities ASSESSMENT: Pt. is a 84 yo Right-handed white female.On 04/19/2020 she was admitted to [facility] and [facility] emergency surgery for Left hip displaced femoral neck fracture (Left hip bipolar hemiarthroplasty using a cemented Biomet fracture stem) by DR COLUNGA.Pre-morbidly, Pt. was independent/mod-I in Transfers Control, Self-Care, and Locomotion; and she had good Balance, Saf ety Awareness, Social Cognition, Sphincter Control, and Communication.Currently, she has deficits of Transfers Control, Locomotion, Balance, Safety Awareness, and Self-Care.Pt. is now referred to [facility] for acute in-patient rehabilitation in order to maximize patient's functi onal independence in activities of daily living, strength, ROM, and mobility.- Rehab Goal Patient has realistic goal of being discharged at assistance level 6-Jesenia to reside at Home with Fam fredo/Relatives. MDM/PLAN: - Physical Therapy Decreased range of motion - to improve, our physical therapists will perform initial evaluation of p t's status upon admission and devise an individualized program for increasing patient's Range of [place] on. Gait dysfunction - to improve, our physical therapists will perform initial evaluation of pt's statu s upon admission and devise an individualized program for Gait Training, and Wheel Chair mobility Inability to transfer - to improve, our physical therapists will perform initial evaluation of pt's status upon admission and devise an individualized program for Bed mobility Need for home safety evaluation - to improve, our physical therapists will perform initial evaluatio n of pt's status upon admission and devise an individualized program for Home Evaluation Need in caregiver upon discharge - to improve, our physical therapists will perform initial evaluati on of pt's status upon admission and devise an individualized program for Caregiver Training Edema - to improve, our physical therapists will perform initial evaluation of pt's status upon admi ssion and devise an individualized program for Elevation Training, and Lymphedema Therapy New precaution - to improve, our physical therapists will perform initial evaluation of pt's status upon admission and devise an individualized program for Patient precaution education Poor balance - to improve, our physical therapists will perform initial evaluation of pt's status up on admission and devise an individualized program for Balance Training Weakness - to improve, our physical therapists will perform initial evaluation of pt's status upon a dmission and devise an individualized program for Aquatic Therapy, Neuromuscular Reeducation, and Str engthening Achieving independence - to improve, our physical therapists will perform initial evaluation of pt's status upon admission and devise an individualized program for Community Reintegration Activities - Occupational Therapy ADL deficits - to improve, our occupation therapists will perform initial evaluation of pt's status upon admission and devise an individualized program for Bathing, Bed mobility, Community Reintegratio n, Cooking, Dressing, Eating, Fine Motor Skills, Grooming, Homemaking, Kitchen Mobility, Laundry, Pat ient Education, Safety Awareness, Splinting - Positioning, Transfers(Toilet, Tub, Shower), and Wheel Chair Management Need for clinical care manager - to improve, our occupation therapists will perform initial evaluation of pt's status upon admission and devise an individualized program for Caregiver Training Weakness - to improve, our occupation therapists will perform initial evaluation of pt's status upon admission and devise an individualized program for Aquatic Therapy, Balance, Endurance, UE ROM, and UE strengthening - Other See attached MAR (Medication Administration Record) - Anterior Hip Precaution No abduction No active extension No adduction across midline No external rotation No hip flexion >90 degrees No internal rotation - Diet - Liquid Texture Continue Regular - Tube Feed Continue N/A - Diet Type Continue Regular - Posterior Hip Precaution No adduction across midline No external rotation No hip flexion >90 degrees No internal rotation No wheel chair propulsion - Weight Bearing Precaution WBAT left LE - Skin care per protocol - Diet - Solid Texture Continue Regular - Shower allowing shower FUNCTIONAL STATUS: UPDATED AT WEEKLY TEAM CONFERENCE - Walking Same score based on distance walked: 0(N/A) - Wheelchair Same FUNCTIONAL STATUS: - Self-Care A. Eating Ind B. Grooming Jesenia C. Bathing sup D. Dressing - Upper sup E. Dressing - Lower [place] F. Toileting sup - Sphincter Control G. Bladder control Jesenia H. Bowel control Jesenia - Transfers Control I. Bed/Chair/Wheelchair sup J. Toilet sup K. Tub/Shower [place] - Locomotion L. Walk/Wheelchair (B) Jesenia M. Stairs ADNO - Communication N. Comprehension (B) Jesenia O. Expression (B) Jesenia - Social Cognition P. Social Interaction Ind Q. Problem Solving Ind R. Memory Ind - Endurance Good - Balance Fair - Safety Awareness Good QI SCORES: - Self-Care A. Eating 05-Setup or clean-up assistance B. Oral hygiene 04-Supervision or touching assistance C. Toileting hygiene 02-Substantial/maximal assistance E. Shower/bathe self 88-Not attempted due to medical condition or safety concerns F. Upper body dressing 10-Not attempted due to environmental limitations G. Lower body dressing 88-Not attempted due to medical condition or safety concerns H. Putting on/taking off footwear 88-Not attempted due to medical condition or safety concerns - Mobility A. Roll left and right 03-Partial/moderate assistance B. Sit to lying 02-Substantial/maximal assistance C. Lying to sitting on side of bed 02-Substantial/maximal assistance D. Sit to stand 02-Substantial/maximal assistance E. Chair/wfe-mz-[id number] transfer 02-Substantial/maximal assistance F. Toilet transfer 02-Substantial/maximal assistance G. Car transfer 10-Not attempted due to environmental limitations I. Walk 10 feet 88-Not attempted due to medical condition or safety concerns J. Walk 50 feet with two turns 88-Not attempted due to medical condition or safety concerns K. Walk 150 feet 88-Not attempted due to medical condition or safety concerns L. Walking 10 feet on uneven surfaces 88-Not attempted due to medical condition or safety concerns M. 1 step (curb) 88-Not attempted due to medical condition or safety concerns N. 4 steps 88-Not attempted due to medical condition or safety concerns O. 12 steps 88-Not attempted due to medical condition or safety concerns P. Picking up object 88-Not attempted due to medical condition or safety concerns - Bladder and Bowel Bladder continence 1-Stress incontinence only Bowel continence 0-Always continent - Endurance Poor - Balance Poor - Safety Awareness Poor CURRENT FUNC. DEFICITS: Self-Care, Mobility, Endurance, Balance, and Safety Awareness SIGNATURE PANEL: (CDT)
[2020-04-30] MEDS: ENSURE ENLIVE 237 ML CAN PO SCH (20:00)
[2020-04-30] MEDS: ATORVASTATIN 40 MG TAB PO SCH (20:33)
[2020-05-01 06:20] LABS: Absolute Lymphocytes (CBC) 2.6 K/uL (0.7-4.9); Basophils % 1.1 % (0-1.3); Hematocrit 28.8 % (36.0-45.0); Lymphocytes % 34.2 % (15.3-44.8); MPV 7.3 fL (7.6-11.3); RBC Red Blood Cell Count 3.06 M/uL (3.86-4.86)
[2020-05-01 06:46] LABS: Albumin 2.8 g/dL (3.4-5.0); BUN Blood Urea Nitrogen 14 mg/dL (7-18); Bicarbonate 28 mmol/L (21-32); Glucose Level 98 mg/dL (74-106); Potassium 4.4 mmol/L (3.5-5.1); Prealbumin 14.2 mg/dL (20-40); Sodium Level 144 mmol/L (136-145)
[2020-05-01] MEDS: LIDOCAINE 4% PATCH TOP SCH (07:40)
[2020-05-01] MEDS: methocarbamoL 750 MG TAB PO SCH ×3 (07:40→20:03)
[2020-05-01] MEDS: GABAPENTIN 300 MG CAP PO SCH ×2 (07:41→20:02)
[2020-05-01] MEDS: MAGNESIUM OXIDE 400 MG TAB PO SCH ×2 (07:41→20:02)
[2020-05-01] MEDS: ENSURE ENLIVE 237 ML CAN PO SCH ×2 (08:00→20:00)
[2020-05-01] MEDS: TRAMADOL HCL 50 MG TAB PO PRN ×2 (08:17→20:02)
[2020-05-01] MEDS: VENLAFAXINE HCL XR 37.5MG CAP PO SCH (08:17)
[2020-05-01] MEDS: LOSARTAN POTASSIUM 50 MG TABLET PO SCH (08:17)
[2020-05-01] MEDS: VITAMIN E 400 IU CAP PO SCH (08:18)
[2020-05-01] MEDS: ASPIRIN EC 81 MG TAB PO SCH (08:18)
[2020-05-01] MEDS: FERROUS SULFATE 325 MG TAB PO SCH (08:19)
[2020-05-01] MEDS: FE SULF/FA/VIT B COMP & C TAB PO SCH (08:19)
[2020-05-01] MEDS: PROMOD 30 ML DOSE PO SCH ×2 (08:19→20:03)
[2020-05-01] MEDS: METOPROLOL XL 25 MG TAB PO SCH ×2 (09:42→20:01)
--- NOTE | 2020-05-01 12:05 | PN ---
Subjective: Rosalie is doing lot better. Denies chest pain, nausea, vomiting. Her left-sided body still hurts, left shoulder, left elbow, left thigh and hip area. Status post surgery after a huge fa ll she had. Objective: Vital Signs: Blood pressure 137/48. Chest: Clear. Heart: Regular. Abdomen: No guarding, no rebound or rigidity. On physical examination physically she is normal neurologically bilaterally. Assessment And Plan: After the fall she has pain as expected on the left side. This will be slowly recovering. Her medications have been reviewed. Continue OT and PT. RVD/MODL Voice ID: [id number] Report ID: [id number]
[2020-05-01] MEDS: ENOXAPARIN 40 MG/0.4 ML SQ SCH (16:22)
[2020-05-01] MEDS: MELATONIN 3 MG TABLET PO PRN (20:01)
[2020-05-01] MEDS: ATORVASTATIN 40 MG TAB PO SCH (20:02)
[2020-05-02 07:47] VITALS: BP 150/63; TEMP 98.5
[2020-05-02] MEDS: ENSURE ENLIVE 237 ML CAN PO SCH (08:00)
[2020-05-02] MEDS: GABAPENTIN 300 MG CAP PO SCH (08:52)
[2020-05-02] MEDS: METOPROLOL XL 25 MG TAB PO SCH (08:52)
[2020-05-02] MEDS: MAGNESIUM OXIDE 400 MG TAB PO SCH (08:52)
[2020-05-02] MEDS: VITAMIN E 400 IU CAP PO SCH (08:52)
[2020-05-02] MEDS: LOSARTAN POTASSIUM 50 MG TABLET PO SCH (08:53)
[2020-05-02] MEDS: VENLAFAXINE HCL XR 37.5MG CAP PO SCH (08:53)
[2020-05-02] MEDS: LIDOCAINE 4% PATCH TOP SCH (08:53)
[2020-05-02] MEDS: FE SULF/FA/VIT B COMP & C TAB PO SCH (08:53)
[2020-05-02] MEDS: PROMOD 30 ML DOSE PO SCH (08:53)
[2020-05-02] MEDS: ASPIRIN EC 81 MG TAB PO SCH (08:53)
[2020-05-02] MEDS: methocarbamoL 750 MG TAB PO SCH (08:54)
--- NOTE | 2020-05-02 09:52 | P.PN ---
Subjective Date of Service: 05/02/20 Chief Complaint: L THIGH PAIN, CRAMPS Subjective: Improving LYDIA HAS ALREADY STARTED TO WALK WELL EVEN IN PAIN. LYDIA IS DOING GREAT. SHE HAS SOME PAIN BUT HER TOLERANCE IS GOOD. SHE IS SOMEWHAT DEPRESSED FROM SON'S BY SUICIDE RELATED TO LIVER CANCER. SHE IS STILL IN SIGNIFICANT AMOUNT OF PAIN. 'SPASMS ALL NIGHT. SHE IS ON NEW MEDS NOW. STILL IN PAIN BUT ABLE TO TOLERATE IT. IN SHOWER TODAY HEARD NO ISSUES. Physical Examination - Vital Signs Temperature: 98.5 F Blood Pressure: 150/63 Pulse: 74 Respirations: 14 Pulse Ox (%): 98 - Studies Medications List Reviewed: Yes Assessment And Plan - Current Problems (Diagnosis) (1) HTN (hypertension) Current Visit: Yes Status: Chronic Plan: FLUCTUATES WILL WATCH Qualifiers: Hypertension type: essential hypertension Qualified Code(s): I10 - Essential (primary) hypertension (2) Subcapital fracture of left hip Current Visit: No Status: Acute Plan: L SIDE. CONTINUE PT ANEMIA FROM LOVENOX, POST OP WILL WATCH. I ADDED ROBAXIN EVERY EIGHT HOURS. FU ON EFFECT OF ABOVE. Qualifiers: Encounter type: subsequent encounter Fracture type: closed Fracture healing: with routine healing Qualified Code(s): S72.012D - Unspecified intracapsular fracture of left femur, subsequent encounter for closed fracture with routine healing (3) History of coronary artery disease Current Visit: No Status: Chronic Plan: NO ACUTE SS. (4) Anemia Current Visit: Yes Status: Acute Plan: POST OP LOSS OF BLOOD. WATCH HG EVERY FEW DAYS. HG IS STABLE NOW. Qualifiers: Anemia type: other cause (5) Anemia Current Visit: Yes Status: Acute Plan: POST SURGICAL STABLE IMPROVING.
--- NOTE | 2020-05-02 09:53 | P.RH.PN ---
Estimated Length of Stay: 10 Expected Discharge Date: 05/02/20 Discharge Disposition Plan: Home Family Support: Yes Halfway Goal: Mobility, Transfers, Self Care Vital Signs: Last Vital Signs Temp 98.5 F 05/02/20 07:46 Pulse 74 05/02/20 08:52 Resp 14 05/02/20 07:46 BP 150/63 H 05/02/20 08:52 Pulse Ox 98 05/02/20 07:46 Laboratory: Laboratory Last Values WBC 7.6 K/uL (4.3-10.9) 05/01/20 05:47 RBC 3.06 M/uL (3.86-4.86) L 05/01/20 05:47 Hgb 9.9 g/dL (12.0-15.0) L 05/01/20 05:47 Hct 28.8 % (36.0-45.0) L 05/01/20 05:47 MCV 93.8 fL (80-100) 05/01/20 05:47 MCH 32.2 pg (27.0-35.0) 05/01/20 05:47 MCHC 34.3 g/dL (32.0-36.0) 05/01/20 05:47 RDW 13.6 % (12.1-15.2) 05/01/20 05:47 Plt Count 390 K/uL (152-406) D 05/01/20 05:47 MPV 7.3 fL (7.6-11.3) L 05/01/20 05:47 Neutrophils % 52.3 % (41.7-73.7) 05/01/20 05:47 Lymphocytes % 34.2 % (15.3-44.8) 05/01/20 05:47 Monocytes % 9.3 % (3.3-12.3) 05/01/20 05:47 Eosinophils % 3.1 % (0-4.4) 05/01/20 05:47 Basophils % 1.1 % (0-1.3) 05/01/20 05:47 Absolute Neutrophils 4.0 K/uL (1.8-8.0) 05/01/20 05:47 Absolute Lymphocytes 2.6 K/uL (0.7-4.9) 05/01/20 05:47 Absolute Monocytes 0.7 K/uL (0.1-1.3) 05/01/20 05:47 Absolute Eosinophils 0.2 K/uL (0-0.5) 05/01/20 05:47 Absolute Basophils 0.1 K/uL (0-0.5) 05/01/20 05:47 Sodium 144 mmol/L (136-145) 05/01/20 05:47 Potassium 4.4 mmol/L (3.5-5.1) 05/01/20 05:47 Chloride 112 mmol/L (98-107) H 05/01/20 05:47 Carbon Dioxide 28 mmol/L (21-32) 05/01/20 05:47 BUN 14 mg/dL (7-18) 05/01/20 05:47 Creatinine 0.60 mg/dL (0.55-1.3) 05/01/20 05:47 Estimated GFR > 90 mL/min (=/>90) 05/01/20 05:47 Glucose 98 mg/dL (74-106) 05/01/20 05:47 POC Glucose 110 mg/dL (65-120) 05/01/20 09:35 Calcium 8.4 mg/dL (8.5-10.1) L 05/01/20 05:47 Magnesium 2.2 mg/dL (1.8-2.4) 04/24/20 05:40 Albumin 2.8 g/dL (3.4-5.0) L 05/01/20 05:47 Prealbumin 14.2 mg/dL (20-40) L 05/01/20 05:47 Urine Color Yellow 04/23/20 23:00 Urine Appearance Clear 04/23/20 23:00 Urine pH 7.0 (5.0-7.0) 04/23/20 23:00 Ur Specific [place] <=1.005 (1.005-1.030) 04/23/20 23:00 Glucose (UA)(Auto) Negative (NEG) 04/23/20 23:00 Urine Ketones Negative (NEG) 04/23/20 23:00 Urine Blood Trace (NEG) H 04/23/20 23:00 Urine Nitrite Negative (NEG) 04/23/20 23:00 Urine Bilirubin Negative (NEG) 04/23/20 23:00 Urine Urobilinogen 1.0 mg/dL (0.2-1.0) 04/23/20 23:00 Ur Leukocyte Esterase Trace (NEG) H 04/23/20 23:00 Urine RBC <5 /HPF (NONE SEEN) 04/23/20 23:00 Urine WBC <5 /HPF (<5) 04/23/20 23:00 Ur Squamous Epith Cells [employer]ENT [employer]IC 04/23/20 23:00 Ur Urothelial Cells <5 /HPF (NONE SEEN) 04/23/20 23:00 Urine Bacteria <20 /HPF (<20) 04/23/20 23:00 Urine Culture Reflexed Reflexed 04/23/20 23:00 Urine Total Protein Negative (NEG) 04/23/20 23:00 SARS-CoV-2 RNA (RT-PCR) Negative (NEGATIVE) 04/26/20 06:25 Weight: 170 lb 6.4 oz Wound Present: No Closed Surgical Incision Present: Yes Negative Pressure Wound Therapy Present: No Physician Update: Labs reviewed and are stable. She is independent. She is walking 1500' at least but she may have muscle spasms after. Sne is doing well with occupational therapy. She had a few minor episodes of low blood pressures to the 110s. She will be discharged home to day with home health. Functional Improvement: pt has demonstrated progress throughout the week. She is Independent with her functional mobility using a rollator and demonstrates good safety awareness. pt does experience intermittent periods of dizziness at times as well as some muscle spasms. Summary: Patient's care plan and shelter goals have been reviewed and revised as necessary. Please see the Rehabilitation Signature page for all necessary signatures.
--- NOTE | 2020-05-02 12:26 | FAST ---
OT QI REPORT FORM ENCOUNTER DATE AND TIME: 05/02/2020 08:00 (CDT) NAME LYDIA ALVAREZ DATE OF : 1935 DATE OF ADMISSION: 04/23/2020 16:32 (CDT) PHONE: AGE: 84 N# [id number] GENDER: Female ENCOUNTER PHYSICIAN: Dr. Wes Chance M.D. ADMISSION DIAGNOSIS: - Orthopaedic Disorders 08 - Unilateral Hip Fracture (04.15) Left hip displaced femoral neck fracture. EATING: Not assessed/no information CODE: - ORAL HYGIENE: ORAL HYGIENE - STEP 1: Does the patient complete the activity by him/herself with no assistance (physical, verbal/nonverbal cueing, setup/clean-up)? Yes. 1. [id number] ADMISSION PERFORMANCE: Independent CODE: 06 TOILETING HYGIENE: Not assessed/no information CODE: - BATHING: SHOWER/BATHE SELF - STEP 1: Does the patient complete the activity by him/herself with no assistance (physical, verbal/nonverbal cueing, setup/clean-up)? Yes. 1. [id number] ADMISSION PERFORMANCE: Independent CODE: 06 DRESSING - UPPER BODY: DRESSING - UPPER BODY - STEP 1: Does the patient complete the activity by him/herself with no assistance (physical, verbal/nonverbal cueing, setup/clean-up)? Yes. 1. [id number] ADMISSION PERFORMANCE: Independent CODE: 06 DRESSING - LOWER BODY: DRESSING - LOWER BODY - STEP 1: Does the patient complete the activity by him/herself with no assistance (physical, verbal/nonverbal cueing, setup/clean-up)? Yes. 1. [id number] ADMISSION PERFORMANCE: Independent CODE: 06 PUTTING ON/TAKING OFF FOOTWEAR: FOOTWEAR - STEP 1: Does the patient complete the activity by him/herself with no assistance (physical, verbal/nonverbal cueing, setup/clean-up)? Yes. 1. [id number] ADMISSION PERFORMANCE: Independent CODE: 06 DOES THE PATIENT USE A WHEELCHAIR/SCOOTER? CODE: EXPR INDICATE THE TYPE OF WHEELCHAIR/SCOOTER USED: CODE: EXPR INDICATE THE TYPE OF WHEELCHAIR/SCOOTER USED: CODE: EXPR BLADDER AND BOWEL: CODE: EXPR CODE: EXPR SIGNATURE PANEL: The following modified sections: 1. [id number] Admission Performance, 1. [id number] Admission Performance, 1. [id number] Admission Performance, 1. [id number] Admission Performance, 1. [id number] Admission Performance were [electronically] signed by Hedy Henry OT on TueMay 02 2020 12:25:33 GMT-0500 ([facility] Daylight Time)
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
== END 2020-05-02 13:32 | disposition home or self-care (01) | DRG 561 ==
LOC: 5TH 04-23 18:32
PROVIDERS: ADMIT Psychiatry & Neurology Neurology with Special Qualifications in Child Neurology; ATTEND Psychiatry & Neurology Neurology with Special Qualifications in Child Neurology
DX: S72.012D Unspecified intracapsular fracture of left femur, subsequent encounter for closed fracture with routine healing (principal); I10 Essential (primary) hypertension; I25.10 Atherosclerotic heart disease of native coronary artery without angina pectoris; D64.9 Anemia, unspecified; E78.5 Hyperlipidemia, unspecified; Z90.49 Acquired absence of other specified parts of digestive tract; Z60.2 Problems related to living alone
CPT/HCPCS: 36415; 80048; 81001; 82040; 82947; 83735; 84134; 85025; 87086; 87088; 92523; 97110; 97112; 97116; 97161; 97530; 97542; J1650; J7030; U0003

== ENCOUNTER → 2021-07-28 | Day surgery (SDC) | payer OTHER, SELFPAY ==
[2021-07-24 10:18] LABS: Absolute Lymphocytes (CBC) 2.7 K/uL (0.7-4.9); Hematocrit 39.2 % (36.0-45.0); Lymphocytes % 47.4 % (15.3-44.8); MPV 7.1 fL (7.6-11.3); RBC Red Blood Cell Count 4.12 M/uL (3.86-4.86)
[2021-07-24 10:39] LABS: Potassium 4.2 mmol/L (3.5-5.1)
--- NOTE | 2021-07-24 11:03 | RAD REPORT ---
EXAM DESCRIPTION: RAD - Chest Pa And Lat (2 Views) - 07/24/2021 10:11 am CLINICAL HISTORY: Pre Op pending carotid angiogram COMPARISON: Chest Single View dated 04/19/2020; Chest Single View dated 07/25/2018; Chest Single View dated 07/06/2018; CHEST PA AND LAT 2 VIEW dated 10/15/2010 FINDINGS: Lines: None. Lungs: No evidence of edema or pneumonia. Pleural: No significant pleural effusions or pneumothorax. Cardiac: The heart size is within normal limits. Bones: No acute fractures. Sternotomy Other: IMPRESSION: No acute cardiopulmonary disease.
--- NOTE | 2021-07-24 13:16 | EKG ---
Test Date: 2021-07-24 Test Time: 09:50:06 Rotor Balancer: BEATRICE MEASUREMENT RESULTS: Intervals: Rate: 67 CT: 198 QRSD: 88 QT: 424 QTc: 448 [place]: P: -21 CT: 198 QRS: 75 T: 72 INTERPRETIVE STATEMENTS: Normal sinus rhythm Normal ECG Compared to ECG 04/19/2020 11:26:13 No significant changes Electronically Signed On 07-24-21 13:15:58 MANAGER BAR by Darrick Posada
[~2021-07-28] MED LIST: ACETAMINOPHEN 325 MG TABLET ONE; ATROPINE SULF 1 MG/10 ML SYR IV ONE; FENTANYL CITR 100 MCG/2 ML ONE; HEPA 1000U/500MLS 1,000 UNIT/500 ML BAG IV ONE; HYDRALAZINE HCL 20 MG/ML VIAL ONE; LIDOCAINE 1% 20 ML MDV ONE; METHYLPREDNISOLONE 125 MG INJ ONE; MIDAZOLAM HCL 2 MG/2 ML INJ ONE; NA CHLORIDE 0.9% 500 ML ONE
[2021-07-28 08:17] VITALS: TEMP 97
[2021-07-28 09:53] VITALS: BP 153/59; O2SAT 96
--- NOTE | 2021-07-28 10:43 | OP ---
Surgeon: Darrick Posada MD The patient admitted to my service on 07/28/2021, underwent selective bilateral carotid angiograms. Indication: CVD and abnormal carotid Doppler. Procedure In Detail: In the sleep lab technician, she was prepped and draped in the routine sterile fashion. Mayra phillip was given Versed and fentanyl for sedation. She was given 10 mg of hydralazine IV for hypertension over 70 systolic. She had received 60 mg of prednisone the night before and 60 mg of prednisone thi s morning and 125 mg Solu-Medrol IV because of severe allergy to iodine. A 6-[place] Citizen sheath was intro duced in the right common femoral artery successfully using the Seldinger technique. Angiography the re was normal. Angio-Seal was used to close the case. A JR4 catheter was used to select the right c ommon carotid and then the left common carotid. Angiography was done separately. Both common caroti d arteries were normal. On the right side, her external carotid artery was normal. She had a 40% to 50% ostial right ICA. On the left side, she had a 70% external carotid, normal internal carotid, no rmal common carotid. The patient tolerated the procedure well. There were no complications. Blood Loss: 5 cc. Anesthesia: Total conscious sedation was 30 minutes. Final Diagnosis: Moderate cerebrovascular disease. Plan: To continue medical therapy. Continue statin. Continue aspirin. We will repeat a carotid Do ppler in a year from now. She will be in the hospital for 2 hours of bedrest after Angio-Seal. She will go home today and I will see her in the office in the next 2 weeks. Case was discussed with the patient and her daughter. STEPHANIE/YEN Voice ID: [id number] Report ID: [id number]
== END ==
LOC: CCL 06:35
DX: I65.23 Occlusion and stenosis of bilateral carotid arteries (principal); I25.10 Atherosclerotic heart disease of native coronary artery without angina pectoris; I70.213 Atherosclerosis of native arteries of extremities with intermittent claudication, bilateral legs; I10 Essential (primary) hypertension; E78.2 Mixed hyperlipidemia; I25.2 Old myocardial infarction; K21.9 Gastro-esophageal reflux disease without esophagitis; F32.0 Major depressive disorder, single episode, mild; Z95.1 Presence of aortocoronary bypass graft; Z91.041 Radiographic dye allergy status; Z20.822 Contact with and (suspected) exposure to COVID-19
CPT/HCPCS: 36222; 36415; 71046; 80048; 85025; 85610; 85730; 93005; C1760; C1893; J0360; J1644; J2250; J2930; J3010; J7040; U0003

== ENCOUNTER 2021-09-27 12:58 | Emergency (ER) | payer OTHER ==
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
[2021-09-27 13:55] LABS: Absolute Lymphocytes (CBC) 2.9 K/uL (0.7-4.9); Hematocrit 37.4 % (36.0-45.0); Lymphocytes % 46.3 % (15.3-44.8); MPV 7.2 fL (7.6-11.3); RBC Red Blood Cell Count 3.95 M/uL (3.86-4.86)
[2021-09-27 14:02] LABS: Protime INR 1.06
[2021-09-27 14:08] LABS: Potassium 4.3 mmol/L (3.5-5.1)
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
[2021-09-27 19:09] VITALS: TEMP 98.7
[2021-09-27 19:12] VITALS: BP 142/121; O2SAT 100
== END 2021-09-27 15:58 | disposition home or self-care (01) ==
LOC: ER 12:58
DX: F07.81 Postconcussional syndrome (principal); V48.0XXA Car driver injured in noncollision transport accident in nontraffic accident, initial encounter; I10 Essential (primary) hypertension; Z91.048 Other nonmedicinal substance allergy status
CPT/HCPCS: 36415; 70450; 71250; 72125; 80048; 85025; 85610; 85730; 99284